=== PATIENT | female | born 1955 | race Two or more races ===

== ENCOUNTER 2016-07-12 05:21 | Inpatient (IN) | payer BC ==
--- NOTE | 2016-07-11 19:22 | Pre-Procedure Note/Attestation ---
Pre-Procedure Note/Attestation Complete Prior to Procedure Planned Procedure: left Procedure Narrative: Left total knee arthroplasty Indications for Procedure Pre-Operative Diagnosis: Left knee arthritis Attestation I attest that I discussed the nature of the procedure; its benefits; risks and complications; and alternatives (and the risks and benefits of such alternatives ), prior to the procedure, with the patient (or the patient's legal direct sales representative). I attest that, if there was a reasonable possibility of needing a blood transfusion, the patient (or the patient's legal direct sales representative) was given the [facility] standardized written summary, pursuant to the Otto Porfirio Blood Safety Act ([place] Health and Safety Code # 1645, as amended). I attest that I re-evaluated the patient just prior to the surgery and that there has been no change in the patient's H&P, except as documented below: NONE VERONIQUE ALCARAZ Jul 11, 2016 19:22
[2016-07-12] VITALS (14 sets, daily range): BP systolic 98–138; BP diastolic 54–80
[~2016-07-12] VITALS: Ht 165.1 cm; Wt 88.5 kg
[~2016-07-12 05:21] MED LIST: AMLODIPINE BESY10 MG ORAL; BENAZEPRIL HCL10 MG ORAL; GLIPIZIDE10 MG PO; METFORMIN HCL500 M1 ORAL; NORCO 10-325 T1 EACH ORAL
[2016-07-12] MEDS ORDERED: oxyCONTIN 20mg tab ORAL ONE (06:00)
[2016-07-12] MEDS ORDERED: celeBREX 200mg Cap **SURGERY PATIENTS ONLY ORAL ONE (06:00)
[2016-07-12] MEDS ORDERED: ceFAZolin 1gm/50ml Premix 50 ML IV ONE (06:00)
[2016-07-12] MEDS ORDERED: Bacitracin 50000 Units Vial ONE (06:44)
[2016-07-12] MEDS ORDERED: Ropivacaine 5mg/ml Vial 20ml INJ ONE (07:00)
[2016-07-12] MEDS ORDERED: Midazolam 2mg/2ml Inj ONE (07:00)
[2016-07-12] MEDS ORDERED: Bupivacaine 0.5% Inj 30 ml vial INJ ONE (07:00)
[2016-07-12] MEDS ORDERED: LR 1000ml ONE (07:00)
[2016-07-12] MEDS ORDERED: Morphine Sulfate PF 10 ML ONE (07:00)
[2016-07-12] MEDS ORDERED: Propofol 10mg/ml 20ml IV ONE (07:00)
[2016-07-12] MEDS ORDERED: NS Irrig 2000ml IRRIG ONE (07:00)
[2016-07-12] MEDS ORDERED: Alfentanil 2ml Inj ONE (07:00)
[2016-07-12] MEDS ORDERED: Ropivacaine 2mg/ml Amp INJ ONE (07:00)
[2016-07-12] MEDS ORDERED: Sterile Water For Irrig 2000ml IRRIG ONE (07:00)
[2016-07-12] MEDS ORDERED: Milk of Magnesia 30ml Ud ORAL PRN (07:15)
[2016-07-12] MEDS ORDERED: NS Irrig 1000ml IRRIG ONE (07:56)
--- NOTE | 2016-07-12 08:17 | Anethesia Preoperative Eval ---
Anesthesia Pre-op PMH/ROS General Date of Evaluation: Jul 12, 2016 Time of Evaluation: 06:50 Anesthesiologist: Rory ASA Score: ASA 3 Mallampati Score Class I : Soft palate, uvula, fauces, pillars visible Class II: Soft palate, uvula, fauces visible Class III: Soft palate, base of uvula visible Class IV: Only hard plate visible Mallampati Classification: Class II Surgeon: Kaia Diagnosis: OA left knee Surgical Procedure: Left TKR Family History: no anesthesia problems Allergies: Coded Allergies: No Known Allergies (Unverified , 05/11/16) Medications: see eMAR Past Medical History Cardiovascular: Reports: HTN Pulmonary: Denies: COPD, SULEMAN, asthma, other Gastrointestinal/Genitourinary: Denies: CRI, ESRD, GERD, other Neurologic/Psychiatric: Denies: CVA, TIA, dementia, depression/anxiety, other Endocrine: Reports: DM HEENT: Denies: DOUGLAS (L), DOUGLAS (R), cataract (L), cataract (R), glaucoma, other Hematology/Immune: Denies: DVT, anemia, bleeding disorder, other Musculoskeletal/Integumentary: Reports: OA PMH Narrative: DM, HTN PSxH Narrative: Right TKR Anesthesia Pre-op Phys. Exam Physician Exam Last Vital Signs Date Time Temp Pulse Resp B/P Pulse Ox O2 Delivery O2 Flow Rate FiO2 07/12/16 05:57 97.2 91 18 117/77 99 Room Air Constitutional: NAD Neurologic: CN 2-12 intact Cardiovascular: RRR, no M/R/G Respiratory: CTA Gastrointestinal: S/NT/ND Airway Exam Mallampati Score: Class II MO: full ROM: full Teeth: intact Anesthesia Pre-op A/P Labs WNL Accucheck 166 Studies Pre-op Studies: EKG - SR Risk Assessment & Plan Assessment: OA left knee Plan: GA, LMA, femoral nerve block for post op pain Status Change Before Surgery: No Pre-Antibiotics Drug: Ancef 2 GM Given Within 1 Hr of Incision: Yes Time Given: 07:15 MINNIE JOHN M.D. Jul 12, 2016 08:17
[2016-07-12] MEDS ORDERED: LR 1000ml 1,000 ML IVLG SCH (08:18)
--- NOTE | 2016-07-12 08:18 | Immediate Post-Op Evaluation ---
Immediate Post-Op Evalulation Immediate Post-Op Evalulation Procedure: Left TKR Date of Evaluation: Jul 12, 2016 Time of Evaluation: 10:13 IV Fluids: 1300 Urinary Output: 150 Blood Pressure Systolic: 103 Blood Pressure Diastolic: 63 Pulse Rate: 96 Respiratory Rate: 10 O2 Sat by Pulse Oximetry: 100 Temperature (Fahrenheit): 97.0 Pain Score (1-10): 0 Nausea: No Vomiting: No Complications No complication Patient Status: awake, patent, none Hydration Status: adequate Drug: Ancef 2 GM Given Within 1 Hr of Incision: Yes Time Given: 07:15 MINNIE JOHN M.D. Jul 12, 2016 08:18
[2016-07-12] MEDS ORDERED: Labetalol 5mg/ml 20ml vial IV PRN (08:30)
[2016-07-12] MEDS ORDERED: LR 1000ml 1,000 ML IV SCH (08:30)
[2016-07-12] MEDS ORDERED: LORazepam Inj 2mg/ml 1ml IV PRN (08:30)
[2016-07-12] MEDS ORDERED: Hydromorphone 0.5mg/0.5ml inj IVP PRN (08:30)
[2016-07-12] MEDS: Docusate 100mg cap ORAL SCH ×4 (09:00→18:00)
[2016-07-12] MEDS: Enoxaparin 30mg Inj SUBQ SCH ×2 (09:00→21:51)
[2016-07-12] MEDS ORDERED: D5 1/2NS w/KCl 20mEq 1,000 ML IV SCH (09:00)
[2016-07-12] MEDS: celeBREX 200mg Cap **SURGERY PATIENTS ONLY ORAL SCH ×2 (09:00→13:24)
--- NOTE | 2016-07-12 09:53 | Brief Operative Note ---
Immediate Post Operative Note Operative Note Chief Complaint: left knee pain Pre-op Diagnosis: left knee arthritis Procedure: left tka Post-op Diagnosis: same as pre-op Findings: consistent w/pre-op dx studies Surgeon: md jory Template Checker: sonny irvin Anesthesiologist: md jeni Anesthesia: general Specimen: yes Complications: none Condition: stable Estimated Blood Loss: minimal Drains: none Implant(s) used?: Yes - WAYLON Syed Jul 12, 2016 09:53
--- NOTE | 2016-07-12 12:03 | Diagnostic Imaging Report ---
Indication: Status post total knee arthroplasty Technique: 3 views of the left knee Comparison: None Findings:Patient is status post total knee arthroplasty. Good anatomic alignment of the prosthesis. Retained air within the surgical wound is demonstrated. Impression:Status post total knee arthroplasty. No unusual features
[2016-07-12] MEDS: D5 1/2NS w/KCl 20mEq 1,000 ML IV SCH (12:41)
[2016-07-12] MEDS: oxyCONTIN 20mg tab ORAL SCH ×2 (13:26→21:00)
[2016-07-12] MEDS: NovoLOG Insulin Flexpen SUBQ SCH ×2 (16:17→20:50)
[2016-07-12] MEDS ORDERED: NovoLOG Insulin Flexpen SUBQ SCH (16:30)
[2016-07-12] MEDS: metFORMIN 500mg tab ORAL SCH (17:19)
--- NOTE | 2016-07-12 21:27 | Operative Note - Dictated ---
DATE OF OPERATION: 07/12/2016 PREOPERATIVE DIAGNOSIS: Left knee end-stage arthritis. POSTOPERATIVE DIAGNOSIS: Left knee end-stage arthritis. PROCEDURE: Left total knee arthroplasty using Radha Persona system, size 8 femur, size F tibial component, 10 mm poly insert, and a 32 mm patellar insert all polyethylene and all cemented. SURGEON: Yan Marti M.D. NEWSPAPER LIBRARY MANAGER: Darline Dominguez PA-C. ANESTHESIOLOGIST: Otto Valadez M.D. ANESTHESIA: Spinal anesthesia combined with femoral nerve block for postoperative pain management. ESTIMATED BLOOD LOSS: Less than 120 mL. COMPLICATIONS: None. BRIEF HISTORY: The patient is a pleasant 61-year-old female, who has had ongoing bilateral knee arthritis. She underwent right total knee arthroplasty in May and she did very well with it. She had full range of motion and was very happy with results. After full discussion of risks and benefits of the surgery and after she failed nonoperative treatment, she opted for left total knee arthroplasty. OPERATIVE PROCEDURE: The patient was brought to the operating table and was placed supine. All pressure points were well padded. Spinal anesthesia was induced and a femoral block was performed. The left knee was prepped and draped in the usual sterile fashion, the left leg was exsanguinated, and tourniquet was inflated to 275 mmHg. Standard anterior incision was made over the anterior aspect of the femur, the tibia, and the knee. The incision was taken down and medial parapatellar arthrotomy was performed. The patella was everted. The medial releases and the deep fiber MCL were released for ligamentous balancing. At this point, the patella was everted, the knee was flexed, and the ACL and PCL were resected. The intramedullary access into the femur was obtained using a drill and an intramedullary guide was placed into the femur. A standard 5-degree valgus distal femoral cut was performed without any complications. At this point, measurements were made and size 8 mm femur appeared to be the right size. Therefore, an 8-mm cutting block was performed and the anterior, posterior, and chamfer cuts were performed without any complications. A size 8 mm femur was then applied and there was excellent medial and lateral as well as anterior and posterior sizing. The femur was slightly lateralized and the peg holes were drilled without any complications. It should be noted that femoral cut was performed at about 3 degrees of external rotation to accommodate for patellofemoral tracking. Once this was performed, care was given to the tibia. Anterior tibial spine was used as the center point and the anterior tibial crest was used as alignment. An extramedullary guide was applied and 2 mm was taken off the most involved side, which was the medial side. The anatomical axis was recreated and slope was recreated. At this point, the medial, lateral, and posterior ligaments were protected and the tibial cut was performed without any complication. Flexion-extension gap was checked and appeared to be perfect. At this point, care was given to the patella. The patella was everted, it was measured using calipers and it was 24 mm. At this point, a freehand patellar cut was performed and the remaining patella was 14 mm. A 32 mm patellar trial was then applied. The peg holes were drilled and the trial was applied and there was excellent fit. At this point, the femoral cut, tibial cut, and the patellar cuts were all locked in without any complications and 10 mm poly trial insert was applied. The knee was placed through range of motion. There was full extension, full flexion, and excellent stability to varus and valgus stressing at 0, 30 degrees, 45 degrees, and 90 degrees. The patellofemoral tracking was excellent. At this point, all trial components were removed. The knee was thoroughly irrigated using Simpulse irrigation. The intramedullary hole into the femur was then plugged using bones. At this point, the tibial component, femoral component, and patellar components were all cemented without any complications and excess cement was removed. The knee was thoroughly irrigated again and a size 10 mm polyethylene insert was then locked in without any complication. Again, the range of motion and stability of the knee was checked at 0, 30 degrees, 45 degrees, and 90 degrees and there was excellent stability and range of motion as described. Patellofemoral tracking was excellent. At this point, the knee was thoroughly irrigated again. The tourniquet was deflated. All capillary bleeders were stopped. There was no excessive bleeding. The extensor mechanism was closed using #1 Vicryl suture, subcutaneous tissue was closed using 2-0 Vicryl suture, and skin was closed using 3-0 Monocryl suture. The patient tolerated the procedure well without any complications and was placed in a knee immobilizer, and was taken to recovery room in stable condition. All lap counts and instrument counts were correct. Preoperative antibiotic was given prior to surgery. Yan Marti M.D. DR: Gloria JOB#: [id number] CC:
[2016-07-13] MEDS: D5 1/2NS w/KCl 20mEq 1,000 ML IV SCH ×3 (02:31→20:30)
[2016-07-13 04:00] VITALS: BP 119/67
[2016-07-13] MEDS: NovoLOG Insulin Flexpen SUBQ SCH ×4 (05:58→20:34)
[2016-07-13] MEDS: GlipiZIDE 10mg tab ORAL SCH (06:01)
[2016-07-13 07:53] LABS: MEAN CORPUSCULAR HEMOGLOBIN 23.6 PG (27.0-31.0); MEAN CORPUSCULAR HGB CONC 30.8 G/DL (32.0-36.0); MEAN CORPUSCULAR VOLUME 77 FL (80-99); MEAN PLATELET VOLUME 7.8 FL (6.5-10.1); PLATELET COUNT 275 K/UL (150-450); RED BLOOD COUNT 3.88 M/UL (4.20-5.40); RED CELL DISTRIBUTION WIDTH 16.2 % (11.6-14.8)
[2016-07-13 08:00] VITALS: BP 137/82
[2016-07-13 08:03] LABS: WHITE BLOOD COUNT 22.5 K/UL (4.8-10.8)
--- NOTE | 2016-07-13 08:04 | Orthopedic Progress Note ---
Orthopedic - Progress Note Subjective Symptoms: c/o post-op knee pain, improved, other - awake and eating Objective Vital Signs Laboratory Tests Test 07/13/16 07:20 White Blood Count Pending Red Blood Count Pending Hemoglobin Pending Hematocrit Pending Mean Corpuscular Volume Pending Mean Corpuscular Hemoglobin Pending Mean Corpuscular Hemoglobin Concent Pending Red Cell Distribution Width Pending Platelet Count Pending Mean Platelet Volume Pending Neutrophils (%) (Auto) Pending Lymphocytes (%) (Auto) Pending Monocytes (%) (Auto) Pending Eosinophils (%) (Auto) Pending Basophils (%) (Auto) Pending Last 24 Hour Vital Signs Date Time Temp Pulse Resp B/P Pulse Ox O2 Delivery O2 Flow Rate FiO2 07/13/16 04:00 98.2 113 19 119/67 97 Nasal Cannula 2.0 07/12/16 23:44 99.3 123 20 138/80 94 Nasal Cannula 2.0 07/12/16 20:00 100.0 122 20 116/66 95 Room Air 07/12/16 16:30 98.1 102 18 121/73 97 Nasal Cannula 2.0 07/12/16 15:22 98.1 07/12/16 14:30 103 20 113/54 97 Nasal Cannula 2.0 07/12/16 12:30 98.0 98 20 116/68 98 Nasal Cannula 2.0 07/12/16 11:30 98.1 91 20 98/58 97 Nasal Cannula 2.0 07/12/16 11:00 98.6 82 20 109/67 100 Nasal Cannula 2.0 07/12/16 10:45 82 20 103/66 100 Nasal Cannula 2.0 07/12/16 10:30 93 20 109/61 100 Nasal Cannula 2.0 07/12/16 10:17 97 20 100/65 100 Simple Mask 8.0 07/12/16 10:11 95 20 104/63 100 Simple Mask 8.0 07/12/16 10:08 98 20 99/63 100 Simple Mask 8.0 07/12/16 10:06 96 10 100 07/12/16 10:03 98.7 97 20 103/63 100 Simple Mask 8.0 I&O Intake and Output 07/12/16 07/13/16 19:00 07:00 Intake Total 2040 ml 915 ml Output Total 250 ml 200 ml Balance 1790 ml 715 ml Intake Oral 240 ml 240 ml IV Total 1800 ml 675 ml Output Urine Total 250 ml 200 ml Wound: clean, dry, intact Drains: none Neuro Status: other - able to wiggle toes, limited dorsiflexion - possibly due to spinal/blocks. Intact sensation Vascular Status: normal Additional Comments Xray reviewed Assessment Post-op Diagnosis POD 1 Procedure Performed left tka Plan Plan: PT, pain management, discharge plan - plan for dc to rehab on monday, other - follow up labs - currently pending. WAYLON CROCKER Jul 13, 2016 08:04
[2016-07-13] MEDS: metFORMIN 500mg tab ORAL SCH ×2 (08:37→17:44)
[2016-07-13] MEDS: Docusate 100mg cap ORAL SCH ×3 (08:38→17:44)
[2016-07-13] MEDS: celeBREX 200mg Cap **SURGERY PATIENTS ONLY ORAL SCH (08:39)
[2016-07-13] MEDS: oxyCONTIN 20mg tab ORAL SCH ×2 (08:39→20:29)
[2016-07-13] MEDS: Enoxaparin 30mg Inj SUBQ SCH ×2 (08:45→20:32)
[2016-07-13 09:05] LABS: BAND NEUTROPHILS % (MANUAL) 2 % (0-8); LYMPHOCYTES % (MANUAL) 16 % (20-45); NEUTROPHILS % (MANUAL) 73 % (45-75); TOTAL CELLS COUNTED 100
[2016-07-13 09:06] LABS: ANISOCYTOSIS 1+; BASOPHILS % (MANUAL) 0 % (0-2); EOSINOPHILS % (MANUAL) 0 % (0-3); PLATELET ESTIMATE ADEQUATE; PLATELET MORPHOLOGY NORMAL
[2016-07-13 09:07] LABS: HYPOCHROMASIA 2+
[2016-07-13 11:57] VITALS: BP 139/86
--- NOTE | 2016-07-13 13:34 | 48 Hour Post Anesthesia Eval ---
Post Anesthesia Evaluation Procedure: Left TKR Date of Evaluation: Jul 13, 2016 Time of Evaluation: 13:33 Blood Pressure Systolic: 139 0: 86 Pulse Rate: 102 Respiratory Rate: 20 Temperature (Fahrenheit): 97.9 O2 Sat by Pulse Oximetry: 99 Airway: patent Nausea: No Vomiting: No Pain Intensity: 4 Hydration Status: adequate Cardiopulmonary Status: Stable Mental Status/LOC: patient returned to baseline Follow-up Care/Observations: 0 Post-Anesthesia Complications: 0 Follow-up care needed: N/A Mina Falk MD Jul 13, 2016 13:34
[2016-07-13 16:00] VITALS: BP 158/89
[2016-07-13] MEDS ORDERED: Tubing IV Secondary IV ONE (17:44)
--- NOTE | 2016-07-13 18:57 | General Progress Note ---
Assessment/Plan Status Narrative s/p tkr post op leukocytosis diabetes post op anemia hypertenison Assessment/Plan PHYSICAL THERPAY OCCUPATIONAL THERPAY CPM PAINC ONTROL DVT PROPHYALXIS HAS AHD PERIOPERATIVE ANTIBIOTIC PROPHYALXIS ACCU CHECK SLIDING SCALE ON METFORMINA DN GLIPIZIDE HAS A LOT OF PAIN WILL GET VENOUS DUIPLEX Subjective Date patient seen: Jul 13, 2016 Time patient seen: 18:54 Constitutional: Reports: no symptoms HEENT: Reports: no symptoms Cardiovascular: Reports: no symptoms Respiratory: Reports: no symptoms Genitourinary: Reports: no symptoms Allergies: Coded Allergies: No Known Allergies (Unverified , 05/11/16) Subjective has been having a lot of pain thinks it is more than last time Objective Last 24 Hour Vital Signs Date Time Temp Pulse Resp B/P Pulse Ox O2 Delivery O2 Flow Rate FiO2 07/13/16 16:00 97.9 114 20 158/89 98 Room Air 07/13/16 13:34 102 20 99 07/13/16 12:10 97.9 07/13/16 11:57 97.9 102 20 139/86 99 Room Air 07/13/16 08:38 137/82 07/13/16 08:37 103 137/82 07/13/16 08:00 97.7 103 20 137/82 98 Room Air 07/13/16 04:00 98.2 113 19 119/67 97 Nasal Cannula 2.0 07/12/16 23:44 99.3 123 20 138/80 94 Nasal Cannula 2.0 07/12/16 20:00 100.0 122 20 116/66 95 Room Air Intake and Output 07/12/16 07/13/16 19:00 07:00 Intake Total 2040 ml 915 ml Output Total 250 ml 200 ml Balance 1790 ml 715 ml Intake Oral 240 ml 240 ml IV Total 1800 ml 675 ml Output Urine Total 250 ml 200 ml Laboratory Tests 07/13/16 07:20: White Blood Count 22.5*H, Red Blood Count 3.88L, Hemoglobin 9.2L, Hematocrit 29.7L, Mean Corpuscular Volume 77L, Mean Corpuscular Hemoglobin 23.6L, Mean Corpuscular Hemoglobin Concent 30.8L, Red Cell Distribution Width 16.2H, Platelet Count 275, Mean Platelet Volume 7.8, Neutrophils (%) (Auto) , Lymphocytes (%) (Auto) , Monocytes (%) (Auto) , Eosinophils (%) (Auto) , Basophils (%) (Auto) , Differential Total Cells Counted 100, Neutrophils % ( Manual) 73, Lymphocytes % (Manual) 16L, Monocytes % (Manual) 9, Eosinophils % ( Manual) 0, Basophils % (Manual) 0, Band Neutrophils 2, Platelet Estimate Adequate, Platelet Morphology Normal, Hypochromasia 2+, Anisocytosis 1+ Height (Feet): 5 Height (Inches): 5.00 Weight (Pounds): 195 General Appearance: WD/WN Neck: non-tender Cardiovascular: normal rate, regular rhythm, regularly irregular, no JVD Respiratory/Chest: lungs clear Abdomen: soft Edema: other - no clubbing VITALY ALMANZA Jul 13, 2016 18:57
[2016-07-13 20:00] VITALS: BP 153/95
[2016-07-14 00:28] VITALS: BP 168/86
[2016-07-14 04:00] VITALS: BP 147/79
[2016-07-14] MEDS: NovoLOG Insulin Flexpen SUBQ SCH ×5 (06:30→20:49)
[2016-07-14] MEDS: GlipiZIDE 10mg tab ORAL SCH (06:39)
[2016-07-14] MEDS: D5 1/2NS w/KCl 20mEq 1,000 ML IV SCH (06:39)
[2016-07-14 07:09] LABS: MEAN CORPUSCULAR HEMOGLOBIN 24.2 PG (27.0-31.0); MEAN CORPUSCULAR HGB CONC 31.8 G/DL (32.0-36.0); MEAN CORPUSCULAR VOLUME 76 FL (80-99); MEAN PLATELET VOLUME 7.8 FL (6.5-10.1); PLATELET COUNT 274 K/UL (150-450)
[2016-07-14 07:16] LABS: WHITE BLOOD COUNT 22.9 K/UL (4.8-10.8)
--- NOTE | 2016-07-14 07:44 | Orthopedic Progress Note ---
Orthopedic - Progress Note Subjective Symptoms: c/o post-op knee pain Additional Comments Doing ok, better pain control. Starting to ambulate with PT Objective Vital Signs Last 24 Hour Vital Signs Date Time Temp Pulse Resp B/P Pulse Ox O2 Delivery O2 Flow Rate FiO2 07/14/16 00:28 97.5 120 20 168/86 100 Room Air 07/13/16 20:00 97.3 121 20 153/95 98 Room Air 07/13/16 16:00 97.9 114 20 158/89 98 Room Air 07/13/16 13:34 102 20 99 07/13/16 12:10 97.9 07/13/16 11:57 97.9 102 20 139/86 99 Room Air 07/13/16 08:38 137/82 07/13/16 08:37 103 137/82 07/13/16 08:00 97.7 103 20 137/82 98 Room Air I&O Intake and Output 07/13/16 07/14/16 19:00 07:00 Intake Total 2345 ml 1800 ml Output Total 1350 ml 1000 ml Balance 995 ml 800 ml Intake Oral 1720 ml 1300 ml IV Total 625 ml 500 ml Output Urine Total 1350 ml 1000 ml Wound: clean, dry Drains: none Neuro Status: normal Vascular Status: normal Assessment Post-op Diagnosis Left TKA Plan Plan: PT, pain management, discharge plan Additional Comments Dopplers negative for DVT No fever, but Leucocytosis most likely from trauma of surgery, will monitor. Expect to come down by tomorrow. Possible D/C to rehab tomorrow if WBC comes down. Continue ambulation with PT Follow Hgb at 9.0 VERONIQUE ALCARAZ Jul 14, 2016 07:44
[2016-07-14 08:10] VITALS: BP 108/85
[2016-07-14] MEDS: metFORMIN 500mg tab ORAL SCH ×2 (08:38→17:33)
[2016-07-14] MEDS: Docusate 100mg cap ORAL SCH ×3 (08:38→17:33)
[2016-07-14] MEDS: Enoxaparin 30mg Inj SUBQ SCH ×2 (08:40→20:49)
[2016-07-14] MEDS: celeBREX 200mg Cap **SURGERY PATIENTS ONLY ORAL SCH (08:51)
[2016-07-14] MEDS: oxyCONTIN 20mg tab ORAL SCH ×2 (08:52→20:50)
[2016-07-14 10:08] LABS: BAND NEUTROPHILS % (MANUAL) 0 % (0-8); BASOPHILS % (MANUAL) 0 % (0-2); EOSINOPHILS % (MANUAL) 2 % (0-3); LYMPHOCYTES % (MANUAL) 10 % (20-45); NEUTROPHILS % (MANUAL) 78 % (45-75); PLATELET ESTIMATE ADEQUATE; PLATELET MORPHOLOGY NORMAL; TOTAL CELLS COUNTED 100
[2016-07-14 10:09] LABS: ANISOCYTOSIS 1+; HYPOCHROMASIA 1+
[2016-07-14 14:30] VITALS: BP 147/84
[2016-07-14 16:00] VITALS: BP 151/122
--- NOTE | 2016-07-14 17:10 | General Progress Note ---
Assessment/Plan Assessment/Plan PHYSICAL THERPAY OCCUPATIONAL THERPAY CPM PAINC ONTROL DVT PROPHYALXIS HAS AHD PERIOPERATIVE ANTIBIOTIC PROPHYALXIS ACCU CHECK SLIDING SCALE ON METFORMINA DN GLIPIZIDE HAS A LOT OF PAIN WILL GET VENOUS DUIPLEX Subjective Date patient seen: Jul 14, 2016 Time patient seen: 17:08 Constitutional: Reports: no symptoms HEENT: Reports: no symptoms Cardiovascular: Reports: no symptoms Respiratory: Reports: no symptoms Gastrointestinal/Abdominal: Reports: no symptoms Allergies: Coded Allergies: No Known Allergies (Unverified , 05/11/16) Subjective s/p tkr perioperative antibiotic prophyalxis given post op dvt prophyalxis painc control pt ot cpm dc to [facility] will follow discussed with patient at length Objective Last 24 Hour Vital Signs Date Time Temp Pulse Resp B/P Pulse Ox O2 Delivery O2 Flow Rate FiO2 07/14/16 16:00 115 19 151/122 96 Room Air 07/14/16 14:30 98.1 120 18 147/84 99 Room Air 07/14/16 08:52 110 108/85 07/14/16 08:51 108/85 07/14/16 08:10 97.7 110 18 108/85 97 Room Air 07/14/16 04:00 97.5 110 20 147/79 96 Room Air 07/14/16 00:28 97.5 120 20 168/86 100 Room Air 07/13/16 20:00 97.3 121 20 153/95 98 Room Air Intake and Output 07/13/16 07/14/16 19:00 07:00 Intake Total 2345 ml 1800 ml Output Total 1350 ml 1000 ml Balance 995 ml 800 ml Intake Oral 1720 ml 1300 ml IV Total 625 ml 500 ml Output Urine Total 1350 ml 1000 ml Laboratory Tests 07/14/16 05:25: White Blood Count 22.9*H, Red Blood Count 3.70L, Hemoglobin 9.0L, Hematocrit 28.2L, Mean Corpuscular Volume 76L, Mean Corpuscular Hemoglobin 24.2L, Mean Corpuscular Hemoglobin Concent 31.8L, Red Cell Distribution Width 16.0H, Platelet Count 274, Mean Platelet Volume 7.8, Neutrophils (%) (Auto) , Lymphocytes (%) (Auto) , Monocytes (%) (Auto) , Eosinophils (%) (Auto) , Basophils (%) (Auto) , Differential Total Cells Counted 100, Neutrophils % ( Manual) 78H, Lymphocytes % (Manual) 10L, Monocytes % (Manual) 10, Eosinophils % (Manual) 2, Basophils % (Manual) 0, Band Neutrophils 0, Platelet Estimate Adequate, Platelet Morphology Normal, Hypochromasia 1+, Anisocytosis 1+ Height (Feet): 5 Height (Inches): 5.00 Weight (Pounds): 195 VITALY ALMANZA Jul 14, 2016 17:10
[2016-07-14 20:00] VITALS: BP 162/91
[2016-07-15] VITALS (7 sets, daily range): BP systolic 120–176; BP diastolic 72–96
[2016-07-15] MEDS: GlipiZIDE 10mg tab ORAL SCH (05:51)
[2016-07-15] MEDS: NovoLOG Insulin Flexpen SUBQ SCH ×4 (05:53→21:07)
[2016-07-15 08:09] LABS: BASOPHILS % (AUTO) 0.3 % (0.0-2.0); LYMPHOCYTES % (AUTO) 11.6 % (20.0-45.0); MEAN CORPUSCULAR HEMOGLOBIN 24.1 PG (27.0-31.0); MEAN CORPUSCULAR HGB CONC 32.1 G/DL (32.0-36.0); MEAN CORPUSCULAR VOLUME 75 FL (80-99); MEAN PLATELET VOLUME 7.6 FL (6.5-10.1); MONOCYTES % (AUTO) 6.7 % (1.0-10.0); NEUTROPHILS % (AUTO) 80.4 % (45.0-75.0); PLATELET COUNT 313 K/UL (150-450); RED BLOOD COUNT 3.76 M/UL (4.20-5.40); RED CELL DISTRIBUTION WIDTH 15.9 % (11.6-14.8); WHITE BLOOD COUNT 16.9 K/UL (4.8-10.8)
[2016-07-15] MEDS: Enoxaparin 30mg Inj SUBQ SCH ×2 (09:00→20:02)
[2016-07-15] MEDS: celeBREX 200mg Cap **SURGERY PATIENTS ONLY ORAL SCH ×2 (09:00→09:55)
[2016-07-15] MEDS: Docusate 100mg cap ORAL SCH ×3 (09:00→17:53)
[2016-07-15] MEDS: metFORMIN 500mg tab ORAL SCH ×2 (09:51→17:53)
[2016-07-15] MEDS: oxyCONTIN 20mg tab ORAL SCH ×2 (09:52→21:05)
[2016-07-15] MEDS ORDERED: Norco 10mg/325mg tab ORAL PRN (16:30)
[2016-07-15] MEDS: Norco 7.5mg/325mg tab ORAL PRN (19:59)
[2016-07-16] VITALS: BP 103/67
[2016-07-16 04:00] VITALS: BP 127/70
[2016-07-16] MEDS: GlipiZIDE 10mg tab ORAL SCH (06:04)
[2016-07-16] MEDS: NovoLOG Insulin Flexpen SUBQ SCH ×4 (06:10→21:18)
[2016-07-16] MEDS: Norco 7.5mg/325mg tab ORAL PRN ×2 (07:48→12:31)
[2016-07-16 08:00] VITALS: BP 120/56
[2016-07-16] MEDS: metFORMIN 500mg tab ORAL SCH ×2 (08:31→17:55)
[2016-07-16] MEDS: Docusate 100mg cap ORAL SCH ×3 (08:31→17:55)
[2016-07-16] MEDS: oxyCONTIN 20mg tab ORAL SCH ×2 (08:33→21:16)
[2016-07-16] MEDS: Enoxaparin 30mg Inj SUBQ SCH ×2 (08:38→21:18)
[2016-07-16] MEDS: celeBREX 200mg Cap **SURGERY PATIENTS ONLY ORAL SCH (08:43)
[2016-07-16] MEDS: Benazepril 10mg tab ORAL SCH (09:00)
[2016-07-16 12:00] VITALS: BP 99/75
[2016-07-16 16:00] VITALS: BP 132/57
[2016-07-16] MEDS: Norco 5mg/325mg tab ORAL PRN ×2 (16:49→20:20)
[2016-07-16 20:00] VITALS: BP 118/72
[2016-07-17] VITALS (7 sets, daily range): BP systolic 112–143; BP diastolic 68–79
[2016-07-17] MEDS: Norco 5mg/325mg tab ORAL PRN (00:54)
[2016-07-17] MEDS: GlipiZIDE 10mg tab ORAL SCH (06:42)
[2016-07-17] MEDS: NovoLOG Insulin Flexpen SUBQ SCH ×4 (06:47→21:11)
[2016-07-17] MEDS: Docusate 100mg cap ORAL SCH ×3 (08:43→18:20)
[2016-07-17] MEDS: oxyCONTIN 20mg tab ORAL SCH ×2 (08:43→21:07)
[2016-07-17] MEDS: celeBREX 200mg Cap **SURGERY PATIENTS ONLY ORAL SCH (08:43)
[2016-07-17] MEDS: metFORMIN 500mg tab ORAL SCH ×2 (08:43→18:20)
[2016-07-17] MEDS: Benazepril 10mg tab ORAL SCH (08:44)
[2016-07-17] MEDS: Enoxaparin 30mg Inj SUBQ SCH ×2 (08:48→21:10)
[2016-07-17] MEDS: Norco 7.5mg/325mg tab ORAL PRN ×3 (10:36→23:34)
[2016-07-17] MEDS: HYDROmorphone 1mg/ml Carpuject SUBQ PRN (19:41)
[2016-07-18] VITALS: BP 137/73
[2016-07-18] MEDS: HYDROmorphone 1mg/ml Carpuject SUBQ PRN ×2 (05:45→19:05)
[2016-07-18 05:54] VITALS: BP 148/75
[2016-07-18] MEDS: GlipiZIDE 10mg tab ORAL SCH (06:12)
[2016-07-18] MEDS: NovoLOG Insulin Flexpen SUBQ SCH ×4 (06:14→20:13)
[2016-07-18 08:00] VITALS: BP 149/80
[2016-07-18] MEDS: metFORMIN 500mg tab ORAL SCH ×2 (08:26→17:14)
[2016-07-18] MEDS: Benazepril 10mg tab ORAL SCH (08:27)
[2016-07-18] MEDS: Docusate 100mg cap ORAL SCH ×3 (08:27→17:14)
[2016-07-18] MEDS: celeBREX 200mg Cap **SURGERY PATIENTS ONLY ORAL SCH (08:27)
[2016-07-18] MEDS: oxyCONTIN 20mg tab ORAL SCH ×2 (08:28→20:07)
[2016-07-18] MEDS: Enoxaparin 30mg Inj SUBQ SCH ×2 (08:34→20:12)
[2016-07-18] MEDS: Norco 5mg/325mg tab ORAL PRN ×2 (10:26→17:15)
[2016-07-18 12:00] VITALS: BP 150/77
[2016-07-18 16:03] VITALS: BP 141/75
[2016-07-18 20:23] VITALS: BP 131/95
[2016-07-19] VITALS: BP 131/81
[2016-07-19 04:00] VITALS: BP 136/77
[2016-07-19] MEDS: NovoLOG Insulin Flexpen SUBQ SCH ×4 (06:26→20:17)
[2016-07-19] MEDS: GlipiZIDE 10mg tab ORAL SCH (06:27)
[2016-07-19] MEDS: Norco 5mg/325mg tab ORAL PRN (06:41)
[2016-07-19 07:32] VITALS: BP 158/85
--- NOTE | 2016-07-19 07:48 | Orthopedic Progress Note ---
Orthopedic - Progress Note Subjective Additional Comments Physically doing well. Very upset with the hospital care. Pain meds not given on time. Breakfast missed. Patient was ready for Discharge on 07/15/2016 and discharge was not set up. No medical indication to stay at the hospital past 07/15/2016. Objective Vital Signs Last 24 Hour Vital Signs Date Time Temp Pulse Resp B/P Pulse Ox O2 Delivery O2 Flow Rate FiO2 07/19/16 07:32 97.9 92 20 158/85 98 Room Air 07/19/16 04:00 97.9 88 18 136/77 98 Room Air 07/19/16 00:00 98.2 89 18 131/81 98 Room Air 07/18/16 20:23 98.1 85 19 131/95 100 Room Air 07/18/16 16:03 97.9 82 18 141/75 99 Room Air 07/18/16 12:00 98.1 95 16 150/77 98 Room Air 07/18/16 08:27 149/80 07/18/16 08:26 90 149/80 07/18/16 08:00 98.1 90 16 149/80 100 Room Air I&O Intake and Output 07/18/16 07/19/16 19:00 07:00 Intake Total 940 ml Balance 940 ml Intake Oral 940 ml # Voids 4 Wound: clean, dry, intact Drains: none Neuro Status: normal Assessment Post-op Diagnosis Left TKA Plan Additional Comments Arrange for Discharge to rehab today follow up with me in 10 days VERONIQUE ALCARAZ Jul 19, 2016 07:48
[2016-07-19] MEDS: metFORMIN 500mg tab ORAL SCH ×2 (08:44→17:02)
[2016-07-19] MEDS: Docusate 100mg cap ORAL SCH ×3 (08:44→17:02)
[2016-07-19] MEDS: celeBREX 200mg Cap **SURGERY PATIENTS ONLY ORAL SCH (08:44)
[2016-07-19] MEDS: oxyCONTIN 20mg tab ORAL SCH ×2 (08:45→20:12)
[2016-07-19] MEDS: Benazepril 10mg tab ORAL SCH (08:46)
[2016-07-19] MEDS: Enoxaparin 30mg Inj SUBQ SCH ×2 (08:50→20:16)
[2016-07-19 11:46] VITALS: BP 135/73
--- NOTE | 2016-07-19 13:36 | Diagnostic Imaging Report ---
APPROVED REPORT CPT Code: 56744 Present Symptoms Lower Extremity Pain: Left RIGHT LEG: Venous imaging reveals a patent deep venous system. There is no evidence of thrombus within the femoral, popliteal or tibial segments. The greater saphenous vein is also within normal limits. Doppler indicates normal spontaneous flow within these segments. LEFT LEG: Venous imaging reveals a patent deep venous system. There is no evidence of thrombus within the femoral segments. The popliteal and tibial veins were not well visualized due to dressing. The greater saphenous vein is also within normal limits. Doppler indicates normal spontaneous flow within these segments.
[2016-07-19 16:00] VITALS: BP 145/78
[2016-07-19] MEDS ORDERED: Norco 7.5mg/325mg tab ORAL PRN (18:15)
[2016-07-19] MEDS: HYDROmorphone 1mg/ml Carpuject SUBQ PRN ×2 (18:57→23:45)
[2016-07-19 19:44] VITALS: BP 142/75
[2016-07-20] VITALS: BP 146/83
[2016-07-20 04:00] VITALS: BP 140/77
[2016-07-20] MEDS: GlipiZIDE 10mg tab ORAL SCH (05:51)
[2016-07-20] MEDS: NovoLOG Insulin Flexpen SUBQ SCH ×3 (05:51→16:16)
[2016-07-20] MEDS: Norco 10mg/325mg tab ORAL PRN ×4 (05:54→16:08)
[2016-07-20 08:00] VITALS: BP 144/77
--- NOTE | 2016-07-20 08:07 | Orthopedic Progress Note ---
Orthopedic - Progress Note Subjective Symptoms: other - no d/c yesterday. pt ready for d/c since 07/15 Objective Vital Signs Last 24 Hour Vital Signs Date Time Temp Pulse Resp B/P Pulse Ox O2 Delivery O2 Flow Rate FiO2 07/20/16 08:00 97.9 80 18 144/77 96 Room Air 07/20/16 04:00 97.6 84 19 140/77 99 Room Air 07/20/16 00:00 98.2 88 18 146/83 99 Room Air 07/19/16 19:44 98.1 85 20 142/75 98 Room Air 07/19/16 16:00 98.1 90 20 145/78 98 Room Air 07/19/16 11:46 97.7 81 20 135/73 100 Room Air 07/19/16 08:46 158/85 07/19/16 08:44 92 158/85 I&O Intake and Output 07/19/16 07/20/16 19:00 07:00 Intake Total 850 ml 1750 ml Balance 850 ml 1750 ml Intake Oral 850 ml 1750 ml # Voids 2 3 Wound: clean, dry, intact Drains: none Neuro Status: normal Vascular Status: normal Assessment Post-op Diagnosis POD 8 Procedure Performed left tka Plan Plan: other - discharge to SNF today WAYLON CROCKER Jul 20, 2016 08:07
--- NOTE | 2016-07-20 08:35 | Discharge Summary ---
Discharge Summary Hospital Course Date of Admission Jul 12, 2016 at 05:21 Date of Discharge 07/20/2016 Admitting Diagnosis oa knee s/p tkr diabetes opbesity HPI Katrin Moulton is a 61 year old female who was admitted on Jul 12, 2016 at 05: 21 for Unilateral Osteoarthritis Lt Knee Procedures tkr Hospital Course had tkr did well minimal blood loss blood sugar has beenounder control getting accu check and sliding scale to go to [facility] Discharge Discharge Disposition Patient was discharged to Discharge Diagnoses: VITALY ALMANZA Jul 20, 2016 08:35
[2016-07-20] MEDS: metFORMIN 500mg tab ORAL SCH ×2 (09:16→17:54)
[2016-07-20] MEDS: Benazepril 10mg tab ORAL SCH (09:16)
[2016-07-20] MEDS: oxyCONTIN 20mg tab ORAL SCH (09:17)
[2016-07-20] MEDS: Docusate 100mg cap ORAL SCH ×3 (09:17→17:55)
[2016-07-20] MEDS: celeBREX 200mg Cap **SURGERY PATIENTS ONLY ORAL SCH (09:17)
[2016-07-20] MEDS: Enoxaparin 30mg Inj SUBQ SCH (10:07)
[2016-07-20 11:08] VITALS: BP 148/84
[2016-07-20 16:00] VITALS: BP 144/78
[2016-07-20] MEDS ORDERED: Milk of Magnesia 30ml Ud ORAL PRN (20:30)
[2016-07-20] MEDS ORDERED: Norco 7.5mg/325mg tab ORAL PRN (20:30)
[2016-07-20] MEDS ORDERED: Norco 10mg/325mg tab ORAL PRN (20:30)
[2016-07-20] MEDS ORDERED: OXYCONTIN20 MG ORAL (20:46)
[2016-07-20] MEDS ORDERED: LOVENOX10 MG SUBQ (20:46)
[2016-07-20] MEDS ORDERED: CELEBREX200 MG ORAL (20:47)
[2016-07-20] MEDS ORDERED: COLACE100 MG ORAL (20:47)
[2016-07-20] MEDS ORDERED: NOVOLOG100 UNIT/3 SUBQ (20:47)
[2016-07-20] MEDS ORDERED: METFORMIN HCL500 M1 ORAL (20:48)
[2016-07-20] MEDS ORDERED: FERROUS SULFAT325 MG ORAL (20:48)
[2016-07-20] MEDS ORDERED: ZOFRAN4 M3 ORAL (20:49)
[2016-07-20] MEDS ORDERED: MILK OF MA400 MG/51 ORAL (20:50)
[2016-07-20] MEDS ORDERED: NORCO 10-325 T1 EACH ORAL (20:50)
[2016-07-20] MEDS ORDERED: NORCO 7.5-3251 EACH ORAL (20:50)
[2016-07-20] MEDS ORDERED: oxyCONTIN 20mg tab ORAL SCH (21:00)
[2016-07-20] MEDS ORDERED: Enoxaparin 30mg Inj SUBQ SCH (21:00)
[2016-07-21] MEDS ORDERED: NovoLOG Insulin Flexpen SUBQ SCH (06:30)
[2016-07-21] MEDS ORDERED: celeBREX 200mg Cap **SURGERY PATIENTS ONLY ORAL SCH (09:00)
[2016-07-21] MEDS ORDERED: Docusate 100mg cap ORAL SCH (09:00)
--- NOTE | 2016-07-29 09:42 | Discharge Summary ---
Discharge Summary Hospital Course Date of Admission Jul 12, 2016 at 05:21 Date of Discharge Jul 20, 2016 at 19:20 Admitting Diagnosis HPI Katrin Moulton is a 61 year old female who was admitted on Jul 12, 2016 at 05: 21 for Unilateral Osteoarthritis Lt Knee Hospital Course Addendum to DC summary: Patient underwent left knee total arthroplasty on 07/13/16. She was given pain management and physical and occupational therapy. Patient was planned discharge 07/15/16. There was an accepting SNF, however, could not get verification of patient insurance as it would the following day. Insurance was renewed but was not showing up on the system. Please refer to documentation by senior licensing manager with several contacts made with both insurance and SNF. Following day was a holiday and when normal business hours where back, patient was also referred to several other SNFs. Unable to discharge home with home health as it is not safe for. Finally on , PEGGY Mario got authorization and patient was discharged to SNF. Final Diagnosis: 1. Left knee total arthroplasty 2. Diabetes 3. Post-op anemia 4. Hypertension 5. Obesity I have assigned to complete a discharge summary on this account, I was not involved in the patient's management.--NESTOR Robles Discharge Discharge Disposition Patient was discharged to SNF/Subacute Facility(03) Discharge Diagnoses: Racheal John NP Jul 29, 2016 09:42
--- NOTE | 2016-09-09 10:07 | Physician Query ---
PLEASE COMPLETE DOCUMENT BEFORE SIGNING Dear Dr. ALCARAZ Date: 09/09/16 Scraper Tender/CDS Name: JOSE VALDEZ, ARASELI Exercise your independent professional judgment when responding to the query. Questions asked do not imply a particular answer is desired or expected. We greatly appreciate your clarification on this issue. CLINICAL DOCUMENTATION STATES: UNILATERAL OSTEOARTHRITIS LEFT KNEE, TKA DONE CLINICAL FINDINGS SHOW: PATH REPORT SHOWS ACUTE OSTEOMYELITIS LEFT KNEE WELL OSTEOARTHRITIS Please respond to the following question: PHYSICIAN RESPONSE: DO YOU CONFIRM THE PATHOLOGY FINDINGS ABOVE? ( ) YES (x ) NO Please also document in your Progress Notes and/or Discharge Summary and indicate if the condition was present on admission. Debbie ALMANZAR
== END 2016-07-20 19:20 | DRG 470 ==
LOC: SDSOVERFLO 05:21 → 3E 11:18
PROC: 0SRD0J9 Replacement of Left Knee Joint with Synthetic Substitute, Cemented, Open Approach (ICD-10-PCS; principal; 2016-07-12 07:00)
DX: M17.9 Osteoarthritis of knee, unspecified (principal); I10 Essential (primary) hypertension; E66.01 Morbid (severe) obesity due to excess calories; E11.9 Type 2 diabetes mellitus without complications; D64.9 Anemia, unspecified; D72.829 Elevated white blood cell count, unspecified; Z79.84 Long term (current) use of oral hypoglycemic drugs; Z68.32 Body mass index [BMI] 32.0-32.9, adult
CPT/HCPCS: 36415; 82962; 85007; 85025; 86850; 86900; 86901; 86920; 87081; 93970; 94003; 94150; J1815; J2250; J2405; J3490

== ENCOUNTER → 2016-09-27 | Outpatient (CLI) | payer BC ==
[~2016-09-27] MED LIST changes: +CELEBREX200 MG ORAL; +COLACE100 MG ORAL; +FERROUS SULFAT325 MG ORAL; +LOVENOX10 MG SUBQ; +MILK OF MA400 MG/51 ORAL; +NORCO 7.5-3251 EACH ORAL; +NOVOLOG100 UNIT/3 SUBQ; +OXYCONTIN20 MG ORAL; +ZOFRAN4 M3 ORAL
[2016-09-27 12:41] LABS: APPEARANCE,URINE CLEAR; KETONES,URINE NEGATIVE (NEGATIVE); LEUKOCYTE ESTERASE ,URINE 1+ (NEGATIVE); NITRITE,URINE NEGATIVE (NEGATIVE); PH,URINE 5 (4.5-8.0); PROTEIN,URINE 1+ (NEGATIVE); UROBILINOGEN,URINE NORMAL MG/DL (0.0-1.0)
[2016-09-27 13:09] LABS: BACTERIA,URINE FEW /HPF; RBC,URINE 0-2 /HPF (0 - 2); SQUAMOUS EPITHELIAL CELL,UR MODERATE /LPF (NONE/OCC)
[2016-09-27 13:16] LABS: ALANINE AMINOTRANSFERASE 18 U/L (3-33); ALBUMIN/GLOBULIN RATIO 1.2 (1.0-2.7); ANION GAP 19 (5-15); ASPARTATE AMINO TRANSFERASE 25 U/L (5-40); CARBON DIOXIDE 23 mEQ/L (20-30); CHLORIDE 97 mEQ/L (98-107); CREATININE 0.7 mg/dL (0.5-0.9); CRP QUANT < 0.3 mg/dL (< 0.5); GLOMERULAR FILTRATION RATE > 60 mL/min (>60); HEMOLYSIS 3; POTASSIUM 3.9 mEQ/L (3.4-4.9); SODIUM 139 mEQ/L (135-145); TOTAL PROTEIN 8.3 g/dL (6.6-8.7)
[2016-09-27 13:21] LABS: BASOPHILS % (AUTO) 0.6 % (0.0-2.0); EOSINOPHILS % (AUTO) 0.6 % (0.0-3.0); LYMPHOCYTES % (AUTO) 24.8 % (20.0-45.0); MEAN CORPUSCULAR HEMOGLOBIN 23.1 PG (27.0-31.0); MEAN CORPUSCULAR HGB CONC 30.6 G/DL (32.0-36.0); MEAN CORPUSCULAR VOLUME 76 FL (80-99); MONOCYTES % (AUTO) 6.6 % (1.0-10.0); NEUTROPHILS % (AUTO) 67.4 % (45.0-75.0); PLATELET COUNT 332 K/UL (150-450); RED BLOOD COUNT 5.18 M/UL (4.20-5.40); RED CELL DISTRIBUTION WIDTH 15.4 % (11.6-14.8); WHITE BLOOD COUNT 12.1 K/UL (4.8-10.8)
[2016-09-27 14:24] LABS: ERYTHROCYTE SEDIMENTATION RATE 13 MM/HR (0-30)
== END | disposition home or self-care (01) ==
LOC: LAB 12:05
DX: M86.9 Osteomyelitis, unspecified (principal)
CPT/HCPCS: 36415; 80053; 81003; 85025; 85651; 86140; 87040

== ENCOUNTER 2016-11-03 13:14 | Inpatient (IN) | payer BC, OTHER ==
[2016-11-03] VITALS (7 sets, daily range): BP systolic 101–184; BP diastolic 48–112
[~2016-11-03] VITALS: Ht 170.2 cm; Wt 77.1 kg
[2016-11-03] MEDS ORDERED: LORazepam Inj 2mg/ml 1ml IV ONE (14:30)
[2016-11-03 14:35] LABS: MEAN CORPUSCULAR HEMOGLOBIN 23.2 PG (27.0-31.0); MEAN CORPUSCULAR HGB CONC 30.7 G/DL (32.0-36.0); MEAN CORPUSCULAR VOLUME 76 FL (80-99); MEAN PLATELET VOLUME 7.2 FL (6.5-10.1); PLATELET COUNT 361 K/UL (150-450); RED BLOOD COUNT 5.59 M/UL (4.20-5.40); RED CELL DISTRIBUTION WIDTH 15.5 % (11.6-14.8); WHITE BLOOD COUNT 20.8 K/UL (4.8-10.8)
[2016-11-03 14:54] LABS: TROPONIN I < 0.30 ng/mL (<=0.30)
[2016-11-03 14:56] LABS: ALANINE AMINOTRANSFERASE 18 U/L (3-33); ALBUMIN/GLOBULIN RATIO 1.1 (1.0-2.7); ANION GAP 27 (5-15); ASPARTATE AMINO TRANSFERASE 18 U/L (5-40); CALCIUM 10.1 mg/dL (8.6-10.2); CARBON DIOXIDE 16 mEQ/L (20-30); CHLORIDE 93 mEQ/L (98-107); CREATININE 0.8 mg/dL (0.5-0.9); GLOMERULAR FILTRATION RATE > 60 mL/min (>60); HEMOLYSIS 2; LIPASE 32 U/L (< 60); POTASSIUM 3.2 mEQ/L (3.4-4.9); SODIUM 136 mEQ/L (135-145); TOTAL PROTEIN 8.1 g/dL (6.6-8.7)
--- NOTE | 2016-11-03 15:06 | Emergency Room Report ---
History of Present Illness General Chief Complaint: Chest Pain Source: Patient Present Illness HPI 61YOF BIBEMS for "pain from top of chest to bottom of stomach." Subjective fever/chills. Denies nausea/vomiting, diarrhea, SOB. Denies urinary complaints. States has had bilateral knee replacements, known "high white blood cell count" thought to be "osteo something." Not on ABx. Allergies: Coded Allergies: No Known Allergies (Unverified , 11/03/16) Patient History Past Medical History: none Past Surgical History: none Pertinent Family History: none Social History: Denies: alcohol use, drug use, smoking Now: No Immunizations: UTD Reviewed Nursing Documentation: PMH: Agreed, PSxH: Agreed Nursing Documentation-PMH Hx Hypertension: Yes Hx Diabetes: Yes Hx Cerebrovascular Accident: Yes - 2004 Review of Systems All Other Systems: negative except mentioned in HPI Physical Exam Vital Signs Date Time Temp Pulse Resp B/P Pulse Ox O2 Delivery O2 Flow Rate FiO2 11/03/16 13:49 93 18 158/112 98 Room Air Sp02 EP Interpretation: reviewed, normal General Appearance: normal inspection, well appearing, no apparent distress, alert, GCS 15, non-toxic, other - very dramatic, repeatedly moving sheets on, off body, c/o hot and cold Head: normocephalic, atraumatic Eyes: bilateral eye EOMI, bilateral eye PERRL ENT: normal ENT inspection, hearing grossly normal, normal voice Neck: normal inspection, full range of motion, supple, no bony tend Respiratory: normal inspection, lungs clear, normal breath sounds, no respiratory distress, no retraction, no wheezing Gastrointestinal: normal inspection, normal bowel sounds, non tender, soft, no guarding, no hernia Genitourinary: no CVA tenderness Musculoskeletal: normal inspection, back normal, normal range of motion, Warren' s Sign negative, other - bilateral midline knee vertical scars post-op. No appreciable warmth, redness, ttp Neurologic: normal inspection, alert, oriented x3, responsive, electronics processor III-XII nml as tested, motor strength/tone normal, speech normal Psychiatric: normal inspection, judgement/insight normal, mood/affect normal Skin: normal inspection, normal color, no rash Medical Decision Making Diagnostic Impression: Primary Impression: UTI (urinary tract infection) Qualified Codes: N30.01 - Acute cystitis with hematuria Additional Impression: Acute hypokalemia ER Course 61YO F with abd pain. VS notable for tachycardia. Leuks 21K. HypoKalemic UA grossly infected Empiric Abx given Blood, Urine Cx pending Leukocytosis - ?chronic. Known to Dr Sharp. Was evaluated previously by ID - no determined cause. - UTI here today. Blood Cx pending - NOT septic knee infection currently/clinically. - Empiric Abx given Vanc/zosyn Hypokalemia - Repleted in ED Endorsed to Dr Cintron For tele admit at 413pm EKG Diagnostic Results Rate: tachycardiac Rhythm: NSR ST Segments: no acute changes ASA given to the pt in ED: No Rhythm Strip Diag. Results EP Interpretation: yes Rate: 106 Rhythm: NSR, no PVC's Last Vital Signs Date Time Temp Pulse Resp B/P Pulse Ox O2 Delivery O2 Flow Rate FiO2 11/03/16 14:29 93 18 Room Air 11/03/16 14:29 158/112 98 Status: improved Disposition: ADMITTED INPATIENT Condition: Serious Referrals: NOT CHOSEN IPA/,REFERRING (PCP) CHRISTOPHE RAMIREZ M.D. Nov 03, 2016 15:06
[2016-11-03] MEDS ORDERED: Vancomycin 1.5gm/D5W 300ml 325 ML IVPB ONE (15:15)
[2016-11-03] MEDS ORDERED: Piperacillin/Tazobactam 3.375 GM in NS 110 ML IVPB ONE (15:15)
[2016-11-03] MEDS ORDERED: Zosyn 3.375gm inj ONE (15:22)
[2016-11-03 15:24] LABS: APPEARANCE,URINE CLOUDY; KETONES,URINE 3+ (NEGATIVE); LEUKOCYTE ESTERASE ,URINE 3+ (NEGATIVE); NITRITE,URINE POSITIVE (NEGATIVE); PH,URINE 7 (4.5-8.0); PROTEIN,URINE 3+ (NEGATIVE); UROBILINOGEN,URINE NORMAL MG/DL (0.0-1.0)
[2016-11-03 15:36] LABS: BACTERIA,URINE MANY /HPF; RBC,URINE 0-2 /HPF (0 - 2); SQUAMOUS EPITHELIAL CELL,UR MODERATE /LPF (NONE/OCC); WBC,URINE 20-30 /HPF (0 - 2)
[2016-11-03 16:24] LABS: REFLEX LACTIC ACID YES OR NO YES
[2016-11-03] MEDS ORDERED: fentaNYL 100 mcg/2 mL IV ONE (16:45)
[2016-11-03 17:24] LABS: BAND NEUTROPHILS % (MANUAL) 2 % (0-8); LYMPHOCYTES % (MANUAL) 12 % (20-45); NEUTROPHILS % (MANUAL) 83 % (45-75); TOTAL CELLS COUNTED 100
[2016-11-03 17:25] LABS: ANISOCYTOSIS 1+; BASOPHILS % (MANUAL) 0 % (0-2); EOSINOPHILS % (MANUAL) 0 % (0-3); HYPOCHROMASIA 1+; MICROCYTES 1+; PLATELET ESTIMATE ADEQUATE; PLATELET MORPHOLOGY NORMAL; POLYCHROMASIA 1+
[2016-11-03] MEDS ORDERED: Promethazine/Codeine 5ml UD ORAL PRN (17:45)
[2016-11-03] MEDS ORDERED: DuoNeb 0.5-3(2.5)mg/3ml neb HHN PRN (17:45)
[2016-11-03] MEDS ORDERED: Nitroglycerin Subl 0.4mg tab (Bottle Of 25) SL PRN (17:45)
[2016-11-03] MEDS ORDERED: Miralax 17gm pkt ORAL PRN (17:45)
[2016-11-03] MEDS ORDERED: Mylanta II UD 30ml ORAL PRN (17:45)
[2016-11-03] MEDS: oxyCONTIN 20mg tab ORAL SCH (21:00)
[2016-11-03] MEDS: Cefepime HCl 1 GM in D5W 55 ML IV SCH (21:15)
[2016-11-03] MEDS: Norco 10mg/325mg tab ORAL PRN (21:19)
[2016-11-03] MEDS: Heparin 5000 units/ml inj SUBQ SCH (21:20)
[2016-11-03] MEDS: NovoLOG Insulin Flexpen SUBQ SCH (21:30)
--- NOTE | 2016-11-03 22:28 | Consultation ---
History of Present Illness General Chief Complaint: Chest Pain Present Illness Allergies: Coded Allergies: No Known Allergies (Unverified , 05/11/16) Medication History Scheduled Amlodipine Besylate* (Amlodipine Besylate*), 10 MG ORAL DAILY, (Reported) Benazepril Hcl* (Benazepril Hcl*), 10 MG ORAL DAILY, (Reported) Celecoxib* (Celebrex*), 200 MG ORAL DAILY, (Reported) Docusate Sodium* (Colace*), 100 MG ORAL THREE TIMES A DAY, (Reported) Enoxaparin* (Lovenox*), 30 MG SUBQ EVERY 12 HOURS, (Reported) Ferrous Sulfate* (Ferrous Sulfate*), 325 MG ORAL THREE TIMES A DAY, (Reported) Glipizide (Glipizide), 10 MG PO DAILY, (Reported) Magnesium Hydroxide* (Milk Of Magnesia*), 30 ML ORAL DAILY, (Reported) Metformin Hcl* (Metformin Hcl*), 500 MG ORAL TWICE A DAY, (Reported) Metformin Hcl* (Metformin Hcl*), 500 MG ORAL TWICE A DAY, (Reported) Oxycodone Hcl Er* (Oxycontin*), 20 MG ORAL EVERY 12 HOURS, (Reported) Scheduled PRN Hydrocodone Bit/Acetaminophen 10-325* ([place] 10-325*), 1 TAB ORAL PRN PRN for For Pain, (Reported) Hydrocodone Bit/Acetaminophen 10-325* ([place] 10-325*), 1 TAB ORAL Q4H PRN for For Pain, (Reported) Hydrocodone Bit/Acetaminophen 7.5-325* ([place] 7.5-325*), 1 TAB ORAL Q4H PRN for For Pain, (Reported) Ondansetron* (Zofran*), 4 MG ORAL Q6H PRN for Nausea & Vomiting, (Reported) Miscellaneous Medications Insulin Aspart* (Novolog*), 0 SUBQ, (Reported) Patient History Healthcare decision maker katherine (daughter) Resuscitation status Full Code Advanced Directive on File Physical Exam Last 24 Hour Vital Signs Date Time Temp Pulse Resp B/P Pulse Ox O2 Delivery O2 Flow Rate FiO2 11/03/16 21:15 123 141/84 11/03/16 20:34 120 20 98 Room Air 11/03/16 20:33 120 20 98 Room Air 11/03/16 20:00 99.5 123 16 141/84 100 Room Air 11/03/16 18:31 97.9 120 20 158/90 98 Room Air 11/03/16 17:53 99.5 112 22 137/98 98 Room Air 11/03/16 17:49 112 22 137/98 98 Room Air 11/03/16 17:30 99.5 98 14 101/48 99 Room Air 11/03/16 16:30 107 21 177/103 99 Room Air 11/03/16 15:30 105 23 184/89 100 Room Air 11/03/16 14:29 93 18 Room Air 11/03/16 14:29 88 18 158/112 98 Room Air 11/03/16 13:49 93 18 158/112 98 Room Air Laboratory Tests Test 11/03/16 14:10 11/03/16 14:30 11/03/16 15:30 11/03/16 16:27 White Blood Count 20.8 K/UL (4.8-10.8) H Red Blood Count 5.59 M/UL (4.20-5.40) H Hemoglobin 13.0 G/DL (12.0-16.0) Hematocrit 42.3 % (37.0-47.0) Mean Corpuscular Volume 76 FL (80-99) L Mean Corpuscular Hemoglobin 23.2 PG (27.0-31.0) L Mean Corpuscular Hemoglobin Concent 30.7 G/DL (32.0-36.0) L Red Cell Distribution Width 15.5 % (11.6-14.8) H Platelet Count 361 K/UL (150-450) Mean Platelet Volume 7.2 FL (6.5-10.1) Neutrophils (%) (Auto) % (45.0-75.0) Lymphocytes (%) (Auto) % (20.0-45.0) Monocytes (%) (Auto) % (1.0-10.0) Eosinophils (%) (Auto) % (0.0-3.0) Basophils (%) (Auto) % (0.0-2.0) Differential Total Cells Counted 100 Neutrophils % (Manual) 83 % (45-75) H Lymphocytes % (Manual) 12 % (20-45) L Monocytes % (Manual) 3 % (1-10) Eosinophils % (Manual) 0 % (0-3) Basophils % (Manual) 0 % (0-2) Band Neutrophils 2 % (0-8) Platelet Estimate Adequate Platelet Morphology Normal Polychromasia 1+ Hypochromasia 1+ Anisocytosis 1+ Microcytosis 1+ Sodium Level 136 mEQ/L (135-145) Potassium Level 3.2 mEQ/L (3.4-4.9) L Chloride Level 93 mEQ/L (98-107) L Carbon Dioxide Level 16 mEQ/L (20-30) L Anion Gap 27 (5-15) H Blood Urea Nitrogen 12 mg/dL (7-23) Creatinine 0.8 mg/dL (0.5-0.9) Estimat Glomerular Filtration Rate > 60 mL/min (>60) Glucose Level 238 mg/dL (74-106) H Calcium Level 10.1 mg/dL (8.6-10.2) Total Bilirubin 0.9 mg/dL (0.0-1.2) Aspartate Amino Transf (AST/SGOT) 18 U/L (5-40) Alanine Aminotransferase (ALT/SGPT) 18 U/L (3-33) Alkaline Phosphatase 116 U/L (35-104) H Troponin I < 0.30 ng/mL (<=0.30) Total Protein 8.1 g/dL (6.6-8.7) Albumin 4.3 g/dL (3.5-5.2) Globulin 3.8 g/dL Albumin/Globulin Ratio 1.1 (1.0-2.7) Lipase 32 U/L (< 60) Urine Color Pale yellow Urine Appearance Cloudy Urine pH 7 (4.5-8.0) Urine Specific [place] 1.005 (1.005-1.035) Urine Protein 3+ (NEGATIVE) H Urine Glucose (UA) 3+ (NEGATIVE) H Urine Ketones 3+ (NEGATIVE) H Urine Occult Blood 3+ (NEGATIVE) H Urine Nitrite Positive (NEGATIVE) H Urine Bilirubin Negative (NEGATIVE) Urine Urobilinogen Normal MG/DL (0.0-1.0) Urine Leukocyte Esterase 3+ (NEGATIVE) H Urine RBC 0-2 /HPF (0 - 2) Urine WBC 20-30 /HPF (0 - 2) H Urine Squamous Epithelial Cells Moderate /LPF (NONE/OCC) H Urine Bacteria Many /HPF (NONE) H Urine HCG, Qualitative Negative Urine Opiates Screen Negative (NEGATIVE) Urine Barbiturates Screen Negative (NEGATIVE) Phencyclidine (PCP) Screen Negative (NEGATIVE) Urine Amphetamines Screen Negative (NEGATIVE) Urine Benzodiazepines Screen Negative (NEGATIVE) Urine Cocaine Screen Negative (NEGATIVE) Urine Marijuana (THC) Screen Positive (NEGATIVE) H Urine Legionella Antigen Pending Lactic Acid Level 2.80 mmol/L (0.66-2.22) H 2.50 mmol/L (0.66-2.22) H Height (Feet): 5 Height (Inches): 7.00 Weight (Pounds): 170 Medications Current Medications Medications (Trade) Dose Ordered Sig/Jim Route PRN Reason Start Time Stop Time Status Last Admin Dose Admin Acetaminophen (Tylenol) 650 mg Q4H PRN ORAL fever 11/03/16 17:45 12/03/16 17:44 Acetaminophen/ Hydrocodone Bitart ([place] 10/325) 1 ea PRN PRN ORAL For Pain 5-7 11/03/16 17:45 11/10/16 17:44 11/03/16 21:19 Al Hydroxide/Mg Hydroxide (Mylanta II) 30 ml Q6H PRN ORAL dyspepsia 11/03/16 17:45 12/03/16 17:44 Albuterol/ Ipratropium 3 ml 3 ml EVERY 4 HOURS PRN HHN Shortness of Breath 11/03/16 17:45 11/08/16 17:44 Amlodipine Besylate (Norvasc) 10 mg DAILY ORAL 11/04/16 09:00 12/04/16 08:59 Benazepril HCl (Lotensin) 10 mg DAILY ORAL 11/04/16 09:00 12/04/16 08:59 Carvedilol (Coreg) 3.125 mg BID ORAL 11/03/16 21:00 12/03/16 20:59 11/03/16 21:15 Cefepime HCl/ Dextrose (Maxipime/D5W) 55 ml @ 110 mls/hr EVERY 12 HOURS IV 11/03/16 21:00 11/10/16 20:59 11/03/16 21:15 Celecoxib (CeleBREX) 200 mg DAILY ORAL 11/04/16 09:00 12/04/16 08:59 Dextrose (Dextrose 50%) STAT PRN IV Hypoglycemia 11/03/16 17:45 12/03/16 17:44 Heparin Sodium (Porcine) (Heparin 5000 units/ml) 5,000 units EVERY 12 HOURS SUBQ 11/03/16 21:00 12/03/16 20:59 11/03/16 21:20 Insulin Aspart (NovoLOG) BEFORE MEALS AND HS SUBQ 11/03/16 21:00 12/03/16 20:59 11/03/16 21:30 Magnesium Hydroxide (Mom) 30 ml DAILY PRN ORAL Constipation 11/04/16 09:00 12/04/16 08:59 Nitroglycerin (Ntg) 0.4 mg Q5M PRN SL Prn Chest Pain 11/03/16 17:45 12/03/16 17:44 Ondansetron HCl (Zofran) 4 mg Q6H PRN IVP Nausea & Vomiting 11/03/16 17:45 12/03/16 17:44 Oxycodone HCl (OxyCONTIN) 20 mg EVERY 12 HOURS ORAL 11/03/16 21:00 11/10/16 20:59 Polyethylene Glycol (Miralax) 17 gm DAILYPRN PRN ORAL Constipation 11/03/16 17:45 12/03/16 17:44 Promethazine HCl/ Codeine (Phenergan with Codeine) 5 ml Q4H PRN ORAL For Cough 11/03/16 17:45 12/03/16 17:44 Temazepam (Restoril) 15 mg HSPRN PRN ORAL Insomnia 11/03/16 17:45 11/10/16 17:44 LATANYA KNIGHT Nov 03, 2016 22:28
[2016-11-04] VITALS: BP 125/72
[2016-11-04 04:00] VITALS: BP 151/82
[2016-11-04] MEDS: NovoLOG Insulin Flexpen SUBQ SCH ×4 (05:56→21:30)
[2016-11-04 07:26] LABS: MEAN CORPUSCULAR HEMOGLOBIN 23.9 PG (27.0-31.0); MEAN CORPUSCULAR HGB CONC 31.8 G/DL (32.0-36.0); MEAN CORPUSCULAR VOLUME 75 FL (80-99); MEAN PLATELET VOLUME 7.3 FL (6.5-10.1); PLATELET COUNT 319 K/UL (150-450); RED BLOOD COUNT 4.95 M/UL (4.20-5.40); WHITE BLOOD COUNT 20.7 K/UL (4.8-10.8)
[2016-11-04 08:02] LABS: ANION GAP 21 (5-15); CALCIUM 9.4 mg/dL (8.6-10.2); CARBON DIOXIDE 21 mEQ/L (20-30); CHLORIDE 95 mEQ/L (98-107); CREATININE 0.7 mg/dL (0.5-0.9); GLOMERULAR FILTRATION RATE > 60 mL/min (>60); HEMOLYSIS 2; PHOSPHORUS 3.6 mg/dL (2.5-4.8); POTASSIUM 3.5 mEQ/L (3.4-4.9); SODIUM 137 mEQ/L (135-145)
--- NOTE | 2016-11-04 08:29 | Diagnostic Imaging Report ---
Indication: Shortness of breath Technique: Single portable AP view of the chest. Findings: Comparison: None. Small linear density lateral left lower lung. Right lung clear. Thoracic mildly calcified and elongated. The bones and extra pulmonary soft tissues, remainder of the cardiomediastinal silhouette, pulmonary vasculature, and pleural surfaces are unremarkable. IMPRESSION: Subsegmental atelectasis versus scarring left lung base Aortosclerosis and probable mild chronic hypertensive change Otherwise negative.
[2016-11-04] MEDS: oxyCONTIN 20mg tab ORAL SCH ×2 (08:33→21:31)
[2016-11-04] MEDS: Cefepime HCl 1 GM in D5W 55 ML IV SCH ×2 (08:36→21:31)
[2016-11-04] MEDS: celeBREX 200mg Cap **SURGERY PATIENTS ONLY ORAL SCH (08:37)
[2016-11-04] MEDS: Benazepril 10mg tab ORAL SCH (08:38)
[2016-11-04] MEDS: Heparin 5000 units/ml inj SUBQ SCH ×2 (08:40→21:31)
[2016-11-04 08:41] VITALS: BP 126/67
[2016-11-04 09:00] LABS: ANISOCYTOSIS 1+; BAND NEUTROPHILS % (MANUAL) 0 % (0-8); BASOPHILS % (MANUAL) 1 % (0-2); EOSINOPHILS % (MANUAL) 2 % (0-3); HYPOCHROMASIA 1+; LYMPHOCYTES % (MANUAL) 11 % (20-45); MICROCYTES 1+; NEUTROPHILS % (MANUAL) 80 % (45-75); PLATELET ESTIMATE ADEQUATE; PLATELET MORPHOLOGY NORMAL; TOTAL CELLS COUNTED 100
[2016-11-04 12:22] VITALS: BP 116/74
[2016-11-04] MEDS: Norco 10mg/325mg tab ORAL PRN (16:24)
--- NOTE | 2016-11-04 16:35 | Pulmonology Progress Note ---
Subjective Allergies: Coded Allergies: No Known Allergies (Unverified , 05/11/16) Objective Last 24 Hour Vital Signs Date Time Temp Pulse Resp B/P Pulse Ox O2 Delivery O2 Flow Rate FiO2 11/04/16 13:25 95 18 96 Room Air 11/04/16 13:25 95 18 96 Room Air 11/04/16 12:22 97.9 77 20 116/74 98 Room Air 11/04/16 08:41 98.1 81 20 126/67 99 Room Air 11/04/16 08:38 81 126/67 11/04/16 08:38 126/67 11/04/16 08:38 81 126/67 11/04/16 07:20 105 20 98 Room Air 11/04/16 07:20 105 20 98 Room Air 11/04/16 04:00 97.2 78 18 151/82 98 Room Air 11/04/16 01:27 110 20 98 Room Air 11/04/16 01:27 111 20 98 Room Air 11/04/16 00:00 97.7 80 18 125/72 99 Room Air 11/03/16 21:15 123 141/84 11/03/16 20:34 120 20 98 Room Air 11/03/16 20:33 120 20 98 Room Air 11/03/16 20:00 99.5 123 16 141/84 100 Room Air 11/03/16 18:31 97.9 120 20 158/90 98 Room Air 11/03/16 17:53 99.5 112 22 137/98 98 Room Air 11/03/16 17:49 112 22 137/98 98 Room Air 11/03/16 17:30 99.5 98 14 101/48 99 Room Air Intake and Output 11/03/16 11/04/16 19:00 07:00 Intake Total 322.5 ml 620 ml Output Total 550 ml Balance -227.5 ml 620 ml Intake Oral 50 ml 620 ml IV Total 272.5 ml Output Urine Total 550 ml # Voids 2 Microbiology Date/Time Source Procedure Growth Status 11/03/16 15:30 Blood Blood Culture - Preliminary Gram Negative Jensen Resulted 11/03/16 15:15 Blood Blood Culture - Preliminary Gram Negative Jensen Resulted 11/03/16 14:30 Urine,Clean Catch Urine Culture - Preliminary Gram Negative Jensen Resulted Laboratory Tests 11/04/16 06:00: Urine Legionella Antigen [Pending] 11/04/16 06:41: White Blood Count 20.7H, Red Blood Count 4.95, Hemoglobin 11.8L, Hematocrit 37.2 , Mean Corpuscular Volume 75L, Mean Corpuscular Hemoglobin 23.9L, Mean Corpuscular Hemoglobin Concent 31.8L, Red Cell Distribution Width 16.0H, Platelet Count 319, Mean Platelet Volume 7.3, Neutrophils (%) (Auto) , Lymphocytes (%) (Auto) , Monocytes (%) (Auto) , Eosinophils (%) (Auto) , Basophils (%) (Auto) , Differential Total Cells Counted 100, Neutrophils % ( Manual) 80H, Lymphocytes % (Manual) 11L, Monocytes % (Manual) 6, Eosinophils % ( Manual) 2, Basophils % (Manual) 1, Band Neutrophils 0, Platelet Estimate Adequate, Platelet Morphology Normal, Hypochromasia 1+, Anisocytosis 1+, Microcytosis 1+, Sodium Level 137, Potassium Level 3.5, Chloride Level 95L, Carbon Dioxide Level 21, Anion Gap 21H, Blood Urea Nitrogen 15, Creatinine 0.7, Estimat Glomerular Filtration Rate > 60, Glucose Level 160H, Calcium Level 9.4, Phosphorus Level 3.6, Albumin 3.8 Current Medications Medications (Trade) Dose Ordered Sig/Jim Route PRN Reason Start Time Stop Time Status Last Admin Dose Admin Acetaminophen (Tylenol) 650 mg Q4H PRN ORAL fever 11/03/16 17:45 12/03/16 17:44 Acetaminophen/ Hydrocodone Bitart ([place] 10/325) 1 ea PRN PRN ORAL For Pain 5-7 11/03/16 17:45 11/10/16 17:44 11/04/16 16:24 Al Hydroxide/Mg Hydroxide (Mylanta II) 30 ml Q6H PRN ORAL dyspepsia 11/03/16 17:45 12/03/16 17:44 Albuterol/ Ipratropium 3 ml 3 ml EVERY 4 HOURS PRN HHN Shortness of Breath 11/03/16 17:45 11/08/16 17:44 Amlodipine Besylate (Norvasc) 10 mg DAILY ORAL 11/04/16 09:00 12/04/16 08:59 11/04/16 08:38 Benazepril HCl (Lotensin) 10 mg DAILY ORAL 11/04/16 09:00 12/04/16 08:59 11/04/16 08:38 Carvedilol (Coreg) 3.125 mg BID ORAL 11/03/16 21:00 12/03/16 20:59 11/04/16 08:38 Cefepime HCl/ Dextrose (Maxipime/D5W) 55 ml @ 110 mls/hr EVERY 12 HOURS IV 11/03/16 21:00 11/10/16 20:59 11/04/16 08:36 Celecoxib (CeleBREX) 200 mg DAILY ORAL 11/04/16 09:00 12/04/16 08:59 11/04/16 08:37 Dextrose (Dextrose 50%) STAT PRN IV Hypoglycemia 11/03/16 17:45 12/03/16 17:44 Heparin Sodium (Porcine) (Heparin 5000 units/ml) 5,000 units EVERY 12 HOURS SUBQ 11/03/16 21:00 12/03/16 20:59 11/04/16 08:40 Insulin Aspart (NovoLOG) BEFORE MEALS AND HS SUBQ 11/03/16 21:00 12/03/16 20:59 11/04/16 16:21 Magnesium Hydroxide (Mom) 30 ml DAILY PRN ORAL Constipation 11/04/16 09:00 12/04/16 08:59 Nitroglycerin (Ntg) 0.4 mg Q5M PRN SL Prn Chest Pain 11/03/16 17:45 12/03/16 17:44 Ondansetron HCl (Zofran) 4 mg Q6H PRN IVP Nausea & Vomiting 11/03/16 17:45 12/03/16 17:44 Oxycodone HCl (OxyCONTIN) 20 mg EVERY 12 HOURS ORAL 11/03/16 21:00 11/10/16 20:59 Polyethylene Glycol (Miralax) 17 gm DAILYPRN PRN ORAL Constipation 11/03/16 17:45 12/03/16 17:44 Promethazine HCl/ Codeine (Phenergan with Codeine) 5 ml Q4H PRN ORAL For Cough 11/03/16 17:45 12/03/16 17:44 Temazepam (Restoril) 15 mg HSPRN PRN ORAL Insomnia 11/03/16 17:45 11/10/16 17:44 LATANYA KNIGHT Nov 04, 2016 16:35
[2016-11-04 16:45] VITALS: BP 139/72
--- NOTE | 2016-11-04 17:01 | History & Physical ---
History and Physical History & Physicial job # [id number] Luis Fernando Cintron MD Nov 04, 2016 17:01
--- NOTE | 2016-11-04 19:22 | Consultation ---
Consult Note Consult Note ID Dic # [id number] CRISTY NELSON M.D. Nov 04, 2016 19:22
[2016-11-04 20:00] VITALS: BP 151/80
[2016-11-04] MEDS ORDERED: Heparin 5000 units/ml inj SUBQ SCH (21:00)
[2016-11-04] MEDS ORDERED: NS 550ML IV ONE (22:46)
[2016-11-04] MEDS ORDERED: Tubing IV Secondary IV ONE (22:46)
[2016-11-05] VITALS: BP 128/79
--- NOTE | 2016-11-05 00:28 | History and Physical Report ---
DATE OF ADMISSION: 11/03/2016 CHIEF COMPLAINT: Lower abdominal pain. HISTORY OF PRESENT ILLNESS: This is a 61 years old female with past medical history significant for diabetes type 2, hypertension, bilateral knee surgery, prior history of stroke in 2004, who was presented to the hospital, complained about lower abdominal pain, associated with fever, chills, and dysuria. Denies any vomiting, however, without episodes of nausea. Denies any diarrhea or shortness of breath. Shortly after initial evaluation in emergency, the patient was noted to have elevated white count and the patient subsequently was admitted to the hospital with sepsis secondary to urinary tract infection. PAST MEDICAL HISTORY/PAST SURGICAL HISTORY: As above history of hypertension, diabetes type 2, history of CVA in 2004, and bilateral knee replacement due to osteoarthritis. MEDICATIONS: Medications at home are significant for amlodipine 10 mg p.o. daily, benazepril 10 mg p.o. daily, Celebrex 400 mg daily, Colace 100 mg t.i.d., Lovenox 30 mg subcutaneous b.i.d., iron sulfate 325 mg t.i.d., glipizide 10 mg daily, [place] 10/325 p.r.n., Aspart insulin, milk of magnesia, metformin 500 mg twice a day, and oxycodone 20 mg twice a day. ALLERGIES: No known drug allergy. SOCIAL HISTORY: Denies any smoking. She smokes marijuana. Denies any substance abuse. Socially drinks. 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 She denies any heavy lifting. FAMILY HISTORY: Noncontributory. REVIEW OF SYSTEMS: Mostly as above. Denies any hemoptysis. She has complained of dysuria and complained about frequency. Denies any loss of consciousness. Denies any double vision. Denies any suicidal or homicidal ideation. PHYSICAL EXAMINATION: VITAL SIGNS: Admission from the ER is significant for temperature of 99.5, pulse of 92, respiration 18, and blood pressure 158/112, repeat one was 177/103. GENERAL: The patient is awake, responsive, in no acute distress. HEENT: Head and neck examination, pupils are equal and reactive to light. Extraocular movements are intact. NECK: Supple. No JVD. LUNGS: Good air entry. No wheezes or rales. HEART: S1 and S2. Regular rhythm. No gallops. ABDOMEN: Soft and nontender. Mildly obese. EXTREMITIES: No cyanosis, clubbing, or edema. Bilateral knee surgical scar was noted, well healed. GENITOURINARY/RECTAL: Refused and deferred. PSYCHIATRIC: Mood and affect are intact. LABORATORY AND DIAGNOSTIC DATA: On admission, WBC of 20.8, hemoglobin 13, hematocrit 42, and platelets 361,000. Sodium 136, potassium 3.2, chloride 93, bicarb is 16, BUN 12, creatinine 0.8, glucose is 238, lactic acid is 2.80. Alkaline phosphatase is 116. First troponin is less than 0.30. Lipase is 32. Urine culture significant for marijuana. Urinalysis +3 protein, +3 glucose, +2 ketones, positive nitrite, positive leukocytes, and 20 to 30 RBC, many bacteria. The patient had EKG done, which noted to be sinus tachycardia with a premature ventricular complex, ventricular rate of 105, otherwise, no ST elevation was identified. ASSESSMENT: 1. Dehydration. 2. Sepsis secondary to urinary tract infection with gram-negative rods. 3. Diabetes type 2, uncontrolled. 4. Hypertension. 5. History of CVA. 6. Mild obesity. PLAN: Admit the patient to medical floor. We will follow up laboratory the patient by Dr. Siddiqui. Aggressive IV hydration. Accu-Chek with sliding scale. Continue with cefepime for antibiotic therapy. Follow up with the cultures. Code status is Full Code. DVT prophylaxis. Heparin subcutaneous. Luis Fernando Cintron M.D. DR: BRANNON JOB#: [id number] CC:
[2016-11-05 04:05] VITALS: BP 141/84
[2016-11-05] MEDS: NovoLOG Insulin Flexpen SUBQ SCH ×4 (05:55→20:35)
[2016-11-05 06:58] LABS: BASOPHILS % (AUTO) 0.3 % (0.0-2.0); EOSINOPHILS % (AUTO) 0.1 % (0.0-3.0); LYMPHOCYTES % (AUTO) 10.7 % (20.0-45.0); MEAN CORPUSCULAR HEMOGLOBIN 23.5 PG (27.0-31.0); MEAN CORPUSCULAR HGB CONC 31.3 G/DL (32.0-36.0); MEAN CORPUSCULAR VOLUME 75 FL (80-99); MEAN PLATELET VOLUME 7.7 FL (6.5-10.1); MONOCYTES % (AUTO) 7.1 % (1.0-10.0); NEUTROPHILS % (AUTO) 81.9 % (45.0-75.0); PLATELET COUNT 293 K/UL (150-450); RED BLOOD COUNT 4.88 M/UL (4.20-5.40); RED CELL DISTRIBUTION WIDTH 15.8 % (11.6-14.8); WHITE BLOOD COUNT 11.9 K/UL (4.8-10.8)
[2016-11-05 08:00] VITALS: BP 144/87
[2016-11-05 08:41] LABS: ERYTHROCYTE SEDIMENTATION RATE 44 MM/HR (0-30)
[2016-11-05 08:42] LABS: ALANINE AMINOTRANSFERASE 17 U/L (3-33); ALBUMIN/GLOBULIN RATIO 0.9 (1.0-2.7); ANION GAP 17 (5-15); ASPARTATE AMINO TRANSFERASE 24 U/L (5-40); CALCIUM 9.4 mg/dL (8.6-10.2); CARBON DIOXIDE 22 mEQ/L (20-30); CHLORIDE 94 mEQ/L (98-107); CREATININE 0.8 mg/dL (0.5-0.9); CRP QUANT 6.5 mg/dL (< 0.5); GLOMERULAR FILTRATION RATE > 60 mL/min (>60); HEMOLYSIS 0; MAGNESIUM 1.8 mg/dL (1.7-2.5); PHOSPHORUS 2.7 mg/dL (2.5-4.8); POTASSIUM 3.9 mEQ/L (3.4-4.9); SODIUM 133 mEQ/L (135-145); TOTAL PROTEIN 7.2 g/dL (6.6-8.7)
[2016-11-05] MEDS ORDERED: NORCO 10-325 T1 EACH ORAL (09:12)
[2016-11-05] MEDS: Cefepime HCl 1 GM in D5W 55 ML IV SCH ×2 (09:32→20:29)
[2016-11-05] MEDS: celeBREX 200mg Cap **SURGERY PATIENTS ONLY ORAL SCH (09:34)
[2016-11-05] MEDS: oxyCONTIN 20mg tab ORAL SCH ×2 (09:35→20:29)
[2016-11-05] MEDS: Benazepril 10mg tab ORAL SCH (09:36)
[2016-11-05] MEDS: Heparin 5000 units/ml inj SUBQ SCH ×2 (09:39→20:32)
[2016-11-05 12:00] VITALS: BP 138/82
[2016-11-05 16:00] VITALS: BP 131/76
--- NOTE | 2016-11-05 17:23 | Internal Med Progress Note ---
Subjective Date of Service: Nov 05, 2016 Physician Name Tia Mon Attending Physician Luis Fernando Cintron MD Current Medications Medications (Trade) Dose Ordered Sig/Jim Route PRN Reason Start Time Stop Time Status Last Admin Dose Admin Acetaminophen (Tylenol) 650 mg Q4H PRN ORAL fever 11/03/16 17:45 12/03/16 17:44 Acetaminophen/ Hydrocodone Bitart ([place] 10/325) 1 ea PRN PRN ORAL For Pain 5-7 11/03/16 17:45 11/10/16 17:44 11/04/16 16:24 Al Hydroxide/Mg Hydroxide (Mylanta II) 30 ml Q6H PRN ORAL dyspepsia 11/03/16 17:45 12/03/16 17:44 Albuterol/ Ipratropium 3 ml 3 ml EVERY 4 HOURS PRN HHN Shortness of Breath 11/03/16 17:45 11/08/16 17:44 Amlodipine Besylate (Norvasc) 10 mg DAILY ORAL 11/04/16 09:00 12/04/16 08:59 11/05/16 09:34 Benazepril HCl (Lotensin) 10 mg DAILY ORAL 11/04/16 09:00 12/04/16 08:59 11/05/16 09:36 Carvedilol (Coreg) 3.125 mg BID ORAL 11/03/16 21:00 12/03/16 20:59 11/05/16 09:35 Cefepime HCl/ Dextrose (Maxipime/D5W) 55 ml @ 110 mls/hr EVERY 12 HOURS IV 11/03/16 21:00 11/10/16 20:59 11/05/16 09:32 Celecoxib (CeleBREX) 200 mg DAILY ORAL 11/04/16 09:00 12/04/16 08:59 11/05/16 09:34 Dextrose (Dextrose 50%) STAT PRN IV Hypoglycemia 11/03/16 17:45 12/03/16 17:44 Heparin Sodium (Porcine) (Heparin 5000 units/ml) 5,000 units EVERY 12 HOURS SUBQ 11/03/16 21:00 12/03/16 20:59 11/05/16 09:39 Insulin Aspart (NovoLOG) BEFORE MEALS AND HS SUBQ 11/03/16 21:00 12/03/16 20:59 11/05/16 16:30 Magnesium Hydroxide (Mom) 30 ml DAILY PRN ORAL Constipation 11/04/16 09:00 12/04/16 08:59 Nitroglycerin (Ntg) 0.4 mg Q5M PRN SL Prn Chest Pain 11/03/16 17:45 12/03/16 17:44 Ondansetron HCl (Zofran) 4 mg Q6H PRN IVP Nausea & Vomiting 11/03/16 17:45 12/03/16 17:44 11/05/16 13:52 Oxycodone HCl (OxyCONTIN) 20 mg EVERY 12 HOURS ORAL 11/03/16 21:00 11/10/16 20:59 11/05/16 09:35 Polyethylene Glycol (Miralax) 17 gm DAILYPRN PRN ORAL Constipation 11/03/16 17:45 12/03/16 17:44 Promethazine HCl/ Codeine (Phenergan with Codeine) 5 ml Q4H PRN ORAL For Cough 11/03/16 17:45 12/03/16 17:44 Temazepam (Restoril) 15 mg HSPRN PRN ORAL Insomnia 11/03/16 17:45 11/10/16 17:44 Allergies: Coded Allergies: No Known Allergies (Unverified , 05/11/16) ROS Limited/Unobtainable: No Constitutional: Reports: no symptoms HEENT: Reports: no symptoms Cardiovascular: Reports: no symptoms Respiratory: Reports: no symptoms Gastrointestinal/Abdominal: Reports: abdominal pain Genitourinary: Reports: no symptoms Neurologic/Psychiatric: Reports: no symptoms Subjective 61 YO F admitted with abdominal pain. Now UTI and sepsis. Cover for Int [facility]- Dr Cintron. Objective Last Vital Signs Date Time Temp Pulse Resp B/P Pulse Ox O2 Delivery O2 Flow Rate FiO2 11/05/16 16:00 97.3 54 16 131/76 100 Room Air Laboratory Tests Test 11/05/16 05:10 White Blood Count 11.9 K/UL (4.8-10.8) H Red Blood Count 4.88 M/UL (4.20-5.40) Hemoglobin 11.5 G/DL (12.0-16.0) L Hematocrit 36.8 % (37.0-47.0) L Mean Corpuscular Volume 75 FL (80-99) L Mean Corpuscular Hemoglobin 23.5 PG (27.0-31.0) L Mean Corpuscular Hemoglobin Concent 31.3 G/DL (32.0-36.0) L Red Cell Distribution Width 15.8 % (11.6-14.8) H Platelet Count 293 K/UL (150-450) Mean Platelet Volume 7.7 FL (6.5-10.1) Neutrophils (%) (Auto) 81.9 % (45.0-75.0) H Lymphocytes (%) (Auto) 10.7 % (20.0-45.0) L Monocytes (%) (Auto) 7.1 % (1.0-10.0) Eosinophils (%) (Auto) 0.1 % (0.0-3.0) Basophils (%) (Auto) 0.3 % (0.0-2.0) Erythrocyte Sedimentation Rate 44 MM/HR (0-30) H Sodium Level 133 mEQ/L (135-145) L Potassium Level 3.9 mEQ/L (3.4-4.9) Chloride Level 94 mEQ/L (98-107) L Carbon Dioxide Level 22 mEQ/L (20-30) Anion Gap 17 (5-15) H Blood Urea Nitrogen 16 mg/dL (7-23) Creatinine 0.8 mg/dL (0.5-0.9) Estimat Glomerular Filtration Rate > 60 mL/min (>60) Glucose Level 175 mg/dL (74-106) H Calcium Level 9.4 mg/dL (8.6-10.2) Phosphorus Level 2.7 mg/dL (2.5-4.8) Magnesium Level 1.8 mg/dL (1.7-2.5) Total Bilirubin 0.3 mg/dL (0.0-1.2) Aspartate Amino Transf (AST/SGOT) 24 U/L (5-40) Alanine Aminotransferase (ALT/SGPT) 17 U/L (3-33) Alkaline Phosphatase 112 U/L (35-104) H C-Reactive Protein, Quantitative 6.5 mg/dL (< 0.5) H Total Protein 7.2 g/dL (6.6-8.7) Albumin 3.5 g/dL (3.5-5.2) Globulin 3.7 g/dL Albumin/Globulin Ratio 0.9 (1.0-2.7) L Microbiology Date/Time Source Procedure Growth Status 11/03/16 15:30 Blood Blood Culture - Preliminary Gram Negative Jensen Resulted 11/03/16 15:15 Blood Blood Culture - Preliminary Gram Negative Jensen Resulted 11/03/16 14:30 Urine,Clean Catch Urine Culture - Final Escherichia Coli Complete Intake and Output 11/04/16 11/05/16 19:00 07:00 Intake Total 55 ml 535 ml Balance 55 ml 535 ml Intake Oral 480 ml IV Total 55 ml 55 ml # Voids 1 Objective General: alert, cooperative, no distress, appears stated age Head: normocephalic, without obvious abnormality, atraumatic Eyes: conjunctivae/corneas clear. PERRL, EOM's intact Throat: lips, mucosa, and tongue normal. MMM Neck: supple, symmetrical, trachea midline, and no JVD Lungs: clear to auscultation bilaterally Heart: regular rate and rhythm, S1, S2 normal, no murmur, click, rub or gallop Abdomen: soft, tender to palp vlad lower quad, non-distended, bowel sounds normal ; no masses or organomegaly Extremities: extremities normal, atraumatic, no cyanosis or edema Pulses: 2+ and symmetric Skin: skin color, texture, turgor normal; no rashes or lesions Neurologic: grossly normal, no focal deficits Assessment/Plan Problem List: (1) Sepsis Assessment & Plan: Gram neg rods. Probably E. Coli from urine. Await ID and sensitivities. Cont cefepime for now. Follow Inf Dis recs. (2) Diabetes mellitus type II, uncontrolled Assessment & Plan: Cont novolog sliding scale. (3) HTN (hypertension) Assessment & Plan: Cont norvasc, lisinorpil and coreg. (4) Cerebral vascular disease (5) UTI (urinary tract infection) Assessment & Plan: E. Coli. Cont cefepime per ID. (6) Leukocytosis Status: not improved TIA MON Nov 05, 2016 17:23
[2016-11-05 20:25] VITALS: BP 154/80
[2016-11-05] MEDS: Norco 10mg/325mg tab ORAL PRN (20:31)
[2016-11-06 04:00] VITALS: BP 134/77
[2016-11-06] MEDS: NovoLOG Insulin Flexpen SUBQ SCH ×4 (06:37→20:12)
[2016-11-06] MEDS: Milk of Magnesia 30ml Ud ORAL PRN ×2 (06:51→20:23)
[2016-11-06 07:10] LABS: BASOPHILS % (AUTO) 0.4 % (0.0-2.0); EOSINOPHILS % (AUTO) 0.5 % (0.0-3.0); LYMPHOCYTES % (AUTO) 18.8 % (20.0-45.0); MEAN CORPUSCULAR HEMOGLOBIN 22.9 PG (27.0-31.0); MEAN CORPUSCULAR HGB CONC 30.3 G/DL (32.0-36.0); MEAN CORPUSCULAR VOLUME 76 FL (80-99); MEAN PLATELET VOLUME 7.6 FL (6.5-10.1); MONOCYTES % (AUTO) 12.1 % (1.0-10.0); NEUTROPHILS % (AUTO) 68.2 % (45.0-75.0); PLATELET COUNT 334 K/UL (150-450); RED BLOOD COUNT 5.57 M/UL (4.20-5.40); RED CELL DISTRIBUTION WIDTH 15.4 % (11.6-14.8); WHITE BLOOD COUNT 9.2 K/UL (4.8-10.8)
[2016-11-06 07:29] LABS: ANION GAP 18 (5-15); CALCIUM 9.4 mg/dL (8.6-10.2); CARBON DIOXIDE 21 mEQ/L (20-30); CHLORIDE 95 mEQ/L (98-107); CREATININE 0.7 mg/dL (0.5-0.9); GLOMERULAR FILTRATION RATE > 60 mL/min (>60); HEMOLYSIS 4; POTASSIUM 4.1 mEQ/L (3.4-4.9); SODIUM 134 mEQ/L (135-145)
[2016-11-06 07:57] VITALS: BP 140/88
[2016-11-06] MEDS: oxyCONTIN 20mg tab ORAL SCH ×2 (09:00→20:19)
[2016-11-06] MEDS: Cefepime HCl 1 GM in D5W 55 ML IV SCH ×2 (09:15→20:13)
[2016-11-06] MEDS: celeBREX 200mg Cap **SURGERY PATIENTS ONLY ORAL SCH (09:16)
[2016-11-06] MEDS: Benazepril 10mg tab ORAL SCH (09:17)
[2016-11-06] MEDS: Heparin 5000 units/ml inj SUBQ SCH ×2 (09:22→20:13)
--- NOTE | 2016-11-06 09:59 | Infectious Diseases Prog Note ---
Assessment/Plan Assessment/Plan A: E.coli sepsis E. Coli UTI DM HPN P; continue Cefepime at time discharge PO Levaquin renal / bladder US Subjective ROS Limited/Unobtainable: No Constitutional: Reports: no symptoms Respiratory: Reports: no symptoms Gastrointestinal/Abdominal: Reports: nausea, vomiting Genitourinary: Reports: no symptoms Musculoskeletal: Reports: other - back pain Allergies: Coded Allergies: No Known Allergies (Unverified , 05/11/16) Objective Vital Signs Last 24 Hour Vital Signs Date Time Temp Pulse Resp B/P Pulse Ox O2 Delivery O2 Flow Rate FiO2 11/06/16 09:18 74 140/85 11/06/16 09:17 140/85 11/06/16 09:16 74 140/85 11/06/16 07:57 98.4 74 20 140/88 99 Room Air 11/06/16 06:58 75 16 98 Room Air 11/06/16 06:03 72 18 98 Room Air 11/06/16 04:00 99.1 77 18 134/77 97 11/06/16 01:40 70 18 98 Room Air 11/06/16 01:35 70 16 98 Room Air 11/05/16 20:25 98.2 74 18 154/80 99 Room Air 11/05/16 19:43 70 18 98 Room Air 11/05/16 19:43 69 16 98 Room Air 11/05/16 17:22 54 131/76 11/05/16 16:00 97.3 54 16 131/76 100 Room Air 11/05/16 13:10 66 16 99 Room Air 11/05/16 13:10 75 17 99 Room Air 11/05/16 12:00 97.5 66 18 138/82 98 Room Air 11/05/16 10:34 97.7 Height (Feet): 5 Height (Inches): 7.00 Weight (Pounds): 170 General Appearance: no acute distress HEENT: mucous membranes moist Respiratory/Chest: lungs clear Cardiovascular: normal rate Abdomen: soft, non tender Extremities: no edema Neurologic/Psychiatric: alert, oriented x 3, responsive Microbiology Date/Time Source Procedure Growth Status 11/03/16 15:30 Blood Blood Culture - Final Escherichia Coli Complete 11/03/16 15:15 Blood Blood Culture - Final Escherichia Coli Complete 11/03/16 14:30 Urine,Clean Catch Urine Culture - Final Escherichia Coli Complete Laboratory Tests Test 11/06/16 05:10 White Blood Count 9.2 K/UL (4.8-10.8) Red Blood Count 5.57 M/UL (4.20-5.40) H Hemoglobin 12.7 G/DL (12.0-16.0) Hematocrit 42.0 % (37.0-47.0) Mean Corpuscular Volume 76 FL (80-99) L Mean Corpuscular Hemoglobin 22.9 PG (27.0-31.0) L Mean Corpuscular Hemoglobin Concent 30.3 G/DL (32.0-36.0) L Red Cell Distribution Width 15.4 % (11.6-14.8) H Platelet Count 334 K/UL (150-450) Mean Platelet Volume 7.6 FL (6.5-10.1) Neutrophils (%) (Auto) 68.2 % (45.0-75.0) Lymphocytes (%) (Auto) 18.8 % (20.0-45.0) L Monocytes (%) (Auto) 12.1 % (1.0-10.0) H Eosinophils (%) (Auto) 0.5 % (0.0-3.0) Basophils (%) (Auto) 0.4 % (0.0-2.0) Sodium Level 134 mEQ/L (135-145) L Potassium Level 4.1 mEQ/L (3.4-4.9) Chloride Level 95 mEQ/L (98-107) L Carbon Dioxide Level 21 mEQ/L (20-30) Anion Gap 18 (5-15) H Blood Urea Nitrogen 12 mg/dL (7-23) Creatinine 0.7 mg/dL (0.5-0.9) Estimat Glomerular Filtration Rate > 60 mL/min (>60) Glucose Level 185 mg/dL (74-106) H Calcium Level 9.4 mg/dL (8.6-10.2) Current Medications Medications (Trade) Dose Ordered Sig/Jim Route PRN Reason Start Time Stop Time Status Last Admin Dose Admin Acetaminophen (Tylenol) 650 mg Q4H PRN ORAL fever 11/03/16 17:45 12/03/16 17:44 Acetaminophen/ Hydrocodone Bitart ([place] 10) 1 ea PRN PRN ORAL For Pain 5-7 11/03/16 17:45 11/10/16 17:44 11/05/16 20:31 Al Hydroxide/Mg Hydroxide (Mylanta II) 30 ml Q6H PRN ORAL dyspepsia 11/03/16 17:45 12/03/16 17:44 Albuterol/ Ipratropium 3 ml 3 ml EVERY 4 HOURS PRN HHN Shortness of Breath 11/03/16 17:45 11/08/16 17:44 Amlodipine Besylate (Norvasc) 10 mg DAILY ORAL 11/04/16 09:00 12/04/16 08:59 11/06/16 09:16 Benazepril HCl (Lotensin) 10 mg DAILY ORAL 11/04/16 09:00 12/04/16 08:59 11/06/16 09:17 Carvedilol (Coreg) 3.125 mg BID ORAL 11/03/16 21:00 12/03/16 20:59 11/06/16 09:18 Cefepime HCl/ Dextrose (Maxipime/D5W) 55 ml @ 110 mls/hr EVERY 12 HOURS IV 11/03/16 21:00 11/10/16 20:59 11/06/16 09:15 Celecoxib (CeleBREX) 200 mg DAILY ORAL 11/04/16 09:00 12/04/16 08:59 11/06/16 09:16 Dextrose (Dextrose 50%) STAT PRN IV Hypoglycemia 11/03/16 17:45 12/03/16 17:44 Heparin Sodium (Porcine) (Heparin 5000 units/ml) 5,000 units EVERY 12 HOURS SUBQ 11/03/16 21:00 12/03/16 20:59 11/06/16 09:22 Insulin Aspart (NovoLOG) BEFORE MEALS AND HS SUBQ 11/03/16 21:00 12/03/16 20:59 11/06/16 06:37 Magnesium Hydroxide (Mom) 30 ml DAILY PRN ORAL Constipation 11/04/16 09:00 12/04/16 08:59 11/06/16 06:51 Nitroglycerin (Ntg) 0.4 mg Q5M PRN SL Prn Chest Pain 11/03/16 17:45 12/03/16 17:44 Ondansetron HCl (Zofran) 4 mg Q6H PRN IVP Nausea & Vomiting 11/03/16 17:45 12/03/16 17:44 11/05/16 13:52 Oxycodone HCl (OxyCONTIN) 20 mg EVERY 12 HOURS ORAL 11/03/16 21:00 11/10/16 20:59 11/05/16 09:35 Polyethylene Glycol (Miralax) 17 gm DAILYPRN PRN ORAL Constipation 11/03/16 17:45 12/03/16 17:44 Promethazine HCl/ Codeine (Phenergan with Codeine) 5 ml Q4H PRN ORAL For Cough 11/03/16 17:45 12/03/16 17:44 Temazepam (Restoril) 15 mg HSPRN PRN ORAL Insomnia 11/03/16 17:45 11/10/16 17:44 BERTHA SCHROEDER Nov 06, 2016 09:59
[2016-11-06 12:00] VITALS: BP 144/81
[2016-11-06] MEDS: Norco 10mg/325mg tab ORAL PRN (12:50)
[2016-11-06] MEDS ORDERED: Tubing IV Secondary IV ONE (15:01)
[2016-11-06 16:02] VITALS: BP 130/78
--- NOTE | 2016-11-06 18:09 | Internal Med Progress Note ---
Subjective Date of Service: Nov 06, 2016 Physician Name Tia Mon Attending Physician Luis Fernando Cintron MD Current Medications Medications (Trade) Dose Ordered Sig/Jim Route PRN Reason Start Time Stop Time Status Last Admin Dose Admin Acetaminophen (Tylenol) 650 mg Q4H PRN ORAL fever 11/03/16 17:45 12/03/16 17:44 Acetaminophen/ Hydrocodone Bitart ([place] 10/325) 1 ea PRN PRN ORAL For Pain 5-7 11/03/16 17:45 11/10/16 17:44 11/06/16 12:50 Al Hydroxide/Mg Hydroxide (Mylanta II) 30 ml Q6H PRN ORAL dyspepsia 11/03/16 17:45 12/03/16 17:44 Albuterol/ Ipratropium 3 ml 3 ml EVERY 4 HOURS PRN HHN Shortness of Breath 11/03/16 17:45 11/08/16 17:44 Amlodipine Besylate (Norvasc) 10 mg DAILY ORAL 11/04/16 09:00 12/04/16 08:59 11/06/16 09:16 Benazepril HCl (Lotensin) 10 mg DAILY ORAL 11/04/16 09:00 12/04/16 08:59 11/06/16 09:17 Carvedilol (Coreg) 3.125 mg BID ORAL 11/03/16 21:00 12/03/16 20:59 11/06/16 17:34 Cefepime HCl/ Dextrose (Maxipime/D5W) 55 ml @ 110 mls/hr EVERY 12 HOURS IV 11/03/16 21:00 11/10/16 20:59 11/06/16 09:15 Celecoxib (CeleBREX) 200 mg DAILY ORAL 11/04/16 09:00 12/04/16 08:59 11/06/16 09:16 Dextrose (Dextrose 50%) STAT PRN IV Hypoglycemia 11/03/16 17:45 12/03/16 17:44 Heparin Sodium (Porcine) (Heparin 5000 units/ml) 5,000 units EVERY 12 HOURS SUBQ 11/03/16 21:00 12/03/16 20:59 11/06/16 09:22 Insulin Aspart (NovoLOG) BEFORE MEALS AND HS SUBQ 11/03/16 21:00 12/03/16 20:59 11/06/16 16:39 Magnesium Hydroxide (Mom) 30 ml DAILY PRN ORAL Constipation 11/04/16 09:00 12/04/16 08:59 11/06/16 06:51 Nitroglycerin (Ntg) 0.4 mg Q5M PRN SL Prn Chest Pain 11/03/16 17:45 12/03/16 17:44 Ondansetron HCl (Zofran) 4 mg Q6H PRN IVP Nausea & Vomiting 11/03/16 17:45 12/03/16 17:44 11/06/16 16:35 Oxycodone HCl (OxyCONTIN) 20 mg EVERY 12 HOURS ORAL 11/03/16 21:00 11/10/16 20:59 11/05/16 09:35 Polyethylene Glycol (Miralax) 17 gm DAILYPRN PRN ORAL Constipation 11/03/16 17:45 12/03/16 17:44 Promethazine HCl/ Codeine (Phenergan with Codeine) 5 ml Q4H PRN ORAL For Cough 11/03/16 17:45 12/03/16 17:44 Temazepam (Restoril) 15 mg HSPRN PRN ORAL Insomnia 11/03/16 17:45 11/10/16 17:44 Allergies: Coded Allergies: No Known Allergies (Unverified , 05/11/16) ROS Limited/Unobtainable: No Constitutional: Reports: no symptoms HEENT: Reports: no symptoms Cardiovascular: Reports: no symptoms Respiratory: Reports: no symptoms Gastrointestinal/Abdominal: Reports: abdominal pain Genitourinary: Reports: no symptoms Neurologic/Psychiatric: Reports: no symptoms Subjective 61 YO F admitted with abdominal pain. Now UTI and sepsis. Cover for Int Med- Dr Cintron. Objective Last Vital Signs Date Time Temp Pulse Resp B/P Pulse Ox O2 Delivery O2 Flow Rate FiO2 11/06/16 17:34 66 130/78 11/06/16 16:02 97.7 19 97 Room Air Laboratory Tests Test 11/06/16 05:10 White Blood Count 9.2 K/UL (4.8-10.8) Red Blood Count 5.57 M/UL (4.20-5.40) H Hemoglobin 12.7 G/DL (12.0-16.0) Hematocrit 42.0 % (37.0-47.0) Mean Corpuscular Volume 76 FL (80-99) L Mean Corpuscular Hemoglobin 22.9 PG (27.0-31.0) L Mean Corpuscular Hemoglobin Concent 30.3 G/DL (32.0-36.0) L Red Cell Distribution Width 15.4 % (11.6-14.8) H Platelet Count 334 K/UL (150-450) Mean Platelet Volume 7.6 FL (6.5-10.1) Neutrophils (%) (Auto) 68.2 % (45.0-75.0) Lymphocytes (%) (Auto) 18.8 % (20.0-45.0) L Monocytes (%) (Auto) 12.1 % (1.0-10.0) H Eosinophils (%) (Auto) 0.5 % (0.0-3.0) Basophils (%) (Auto) 0.4 % (0.0-2.0) Sodium Level 134 mEQ/L (135-145) L Potassium Level 4.1 mEQ/L (3.4-4.9) Chloride Level 95 mEQ/L (98-107) L Carbon Dioxide Level 21 mEQ/L (20-30) Anion Gap 18 (5-15) H Blood Urea Nitrogen 12 mg/dL (7-23) Creatinine 0.7 mg/dL (0.5-0.9) Estimat Glomerular Filtration Rate > 60 mL/min (>60) Glucose Level 185 mg/dL (74-106) H Calcium Level 9.4 mg/dL (8.6-10.2) Intake and Output 11/05/16 11/06/16 19:00 07:00 Intake Total 845 ml 240 ml Balance 845 ml 240 ml Intake Oral 790 ml 240 ml IV Total 55 ml # Voids 1 2 Objective General: alert, cooperative, no distress, appears stated age Head: normocephalic, without obvious abnormality, atraumatic Eyes: conjunctivae/corneas clear. PERRL, EOM's intact Throat: lips, mucosa, and tongue normal. MMM Neck: supple, symmetrical, trachea midline, and no JVD Lungs: clear to auscultation bilaterally Heart: regular rate and rhythm, S1, S2 normal, no murmur, click, rub or gallop Abdomen: soft, tender to palp vlad lower quad, non-distended, bowel sounds normal ; no masses or organomegaly Extremities: extremities normal, atraumatic, no cyanosis or edema Pulses: 2+ and symmetric Skin: skin color, texture, turgor normal; no rashes or lesions Neurologic: grossly normal, no focal deficits Assessment/Plan Problem List: (1) Sepsis Assessment & Plan: E. Coli from urine. Cont cefepime; see Inf Dis recs. (2) Diabetes mellitus type II, uncontrolled Assessment & Plan: Cont novolog sliding scale. (3) HTN (hypertension) Assessment & Plan: Cont norvasc, lisinorpil and coreg. (4) Cerebral vascular disease (5) UTI (urinary tract infection) Assessment & Plan: E. Coli. Cont cefepime per ID. (6) Leukocytosis Status: not improved TIA MON Nov 06, 2016 18:09
[2016-11-06 20:13] VITALS: BP 143/79
--- NOTE | 2016-11-06 23:01 | Pulmonology Progress Note ---
Assessment/Plan Problems: (1) Sepsis (2) Gram-negative bacteremia (3) Diabetes mellitus type II, uncontrolled (4) HTN (hypertension) Assessment/Plan IV antibioitcs check cultures pain management monitor BP, titrate meds sliding scale dvt prophylaxis Subjective ROS Limited/Unobtainable: No Interval Events: late note for 11/05 pt is c/o lower back pain Allergies: Coded Allergies: No Known Allergies (Unverified , 05/11/16) Objective Last 24 Hour Vital Signs Date Time Temp Pulse Resp B/P Pulse Ox O2 Delivery O2 Flow Rate FiO2 11/06/16 20:13 98.2 71 20 143/79 98 Room Air 11/06/16 20:08 72 18 98 Room Air 11/06/16 20:07 72 16 98 Room Air 11/06/16 17:34 66 130/78 11/06/16 16:02 97.7 66 19 130/78 97 Room Air 11/06/16 13:49 98.1 11/06/16 12:54 70 18 98 Room Air 11/06/16 12:51 73 16 98 Room Air 11/06/16 12:00 98.1 71 19 144/81 98 Room Air 11/06/16 09:18 74 140/85 11/06/16 09:17 140/85 11/06/16 09:16 74 140/85 11/06/16 07:57 98.4 74 20 140/88 99 Room Air 11/06/16 06:58 75 16 98 Room Air 11/06/16 06:03 72 18 98 Room Air 11/06/16 04:00 99.1 77 18 134/77 97 11/06/16 01:40 70 18 98 Room Air 11/06/16 01:35 70 16 98 Room Air Intake and Output 11/05/16 11/06/16 19:00 07:00 Intake Total 845 ml 240 ml Balance 845 ml 240 ml Intake Oral 790 ml 240 ml IV Total 55 ml # Voids 1 2 General Appearance: WD/WN HEENT: normocephalic Respiratory/Chest: chest wall non-tender, lungs clear, normal breath sounds Cardiovascular: normal peripheral pulses, normal rate, regular rhythm Abdomen: normal bowel sounds, soft, non tender, no organomegaly, non distended Extremities: no cyanosis, no clubbing Skin: no rash, no lesions 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 Laboratory Tests 11/06/16 05:10: White Blood Count 9.2, Red Blood Count 5.57H, Hemoglobin 12.7, Hematocrit 42.0, Mean Corpuscular Volume 76L, Mean Corpuscular Hemoglobin 22.9L, Mean Corpuscular Hemoglobin Concent 30.3L, Red Cell Distribution Width 15.4H, Platelet Count 334, Mean Platelet Volume 7.6, Neutrophils (%) (Auto) 68.2, Lymphocytes (%) (Auto) 18.8L, Monocytes (%) (Auto) 12.1H, Eosinophils (%) (Auto ) 0.5, Basophils (%) (Auto) 0.4, Sodium Level 134L, Potassium Level 4.1, Chloride Level 95L, Carbon Dioxide Level 21, Anion Gap 18H, Blood Urea Nitrogen 12, Creatinine 0.7, Estimat Glomerular Filtration Rate > 60, Glucose Level 185H , Calcium Level 9.4 Current Medications Medications (Trade) Dose Ordered Sig/Jim Route PRN Reason Start Time Stop Time Status Last Admin Dose Admin Acetaminophen (Tylenol) 650 mg Q4H PRN ORAL fever 11/03/16 17:45 12/03/16 17:44 Acetaminophen/ Hydrocodone Bitart ([place] 10/325) 1 ea PRN PRN ORAL For Pain 5-7 11/03/16 17:45 11/10/16 17:44 11/06/16 12:50 Al Hydroxide/Mg Hydroxide (Mylanta II) 30 ml Q6H PRN ORAL dyspepsia 11/03/16 17:45 12/03/16 17:44 Albuterol/ Ipratropium 3 ml 3 ml EVERY 4 HOURS PRN HHN Shortness of Breath 11/03/16 17:45 11/08/16 17:44 Amlodipine Besylate (Norvasc) 10 mg DAILY ORAL 11/04/16 09:00 12/04/16 08:59 11/06/16 09:16 Benazepril HCl (Lotensin) 10 mg DAILY ORAL 11/04/16 09:00 12/04/16 08:59 11/06/16 09:17 Carvedilol (Coreg) 3.125 mg BID ORAL 11/03/16 21:00 12/03/16 20:59 11/06/16 17:34 Cefepime HCl/ Dextrose (Maxipime/D5W) 55 ml @ 110 mls/hr EVERY 12 HOURS IV 11/03/16 21:00 11/10/16 20:59 11/06/16 20:13 Celecoxib (CeleBREX) 200 mg DAILY ORAL 11/04/16 09:00 12/04/16 08:59 11/06/16 09:16 Dextrose (Dextrose 50%) STAT PRN IV Hypoglycemia 11/03/16 17:45 12/03/16 17:44 Heparin Sodium (Porcine) (Heparin 5000 units/ml) 5,000 units EVERY 12 HOURS SUBQ 11/03/16 21:00 12/03/16 20:59 11/06/16 20:13 Insulin Aspart (NovoLOG) BEFORE MEALS AND HS SUBQ 11/03/16 21:00 12/03/16 20:59 11/06/16 20:12 Magnesium Hydroxide (Mom) 30 ml DAILY PRN ORAL Constipation 11/04/16 09:00 12/04/16 08:59 11/06/16 20:23 Nitroglycerin (Ntg) 0.4 mg Q5M PRN SL Prn Chest Pain 11/03/16 17:45 12/03/16 17:44 Ondansetron HCl (Zofran) 4 mg Q6H PRN IVP Nausea & Vomiting 11/03/16 17:45 12/03/16 17:44 11/06/16 16:35 Oxycodone HCl (OxyCONTIN) 20 mg EVERY 12 HOURS ORAL 11/03/16 21:00 11/10/16 20:59 11/05/16 09:35 Polyethylene Glycol (Miralax) 17 gm DAILYPRN PRN ORAL Constipation 11/03/16 17:45 12/03/16 17:44 Promethazine HCl/ Codeine (Phenergan with Codeine) 5 ml Q4H PRN ORAL For Cough 11/03/16 17:45 12/03/16 17:44 Temazepam (Restoril) 15 mg HSPRN PRN ORAL Insomnia 11/03/16 17:45 11/10/16 17:44 LATANYA KNIGHT Nov 06, 2016 23:01
--- NOTE | 2016-11-06 23:02 | Pulmonology Progress Note ---
Assessment/Plan Problems: (1) Sepsis (2) Gram-negative bacteremia (3) Diabetes mellitus type II, uncontrolled (4) HTN (hypertension) Assessment/Plan IV antibioitcs, f/u by ID check cultures pain management monitor BP, titrate meds sliding scale dvt prophylaxis Subjective ROS Limited/Unobtainable: No Interval Events: no new complains Allergies: Coded Allergies: No Known Allergies (Unverified , 05/11/16) Objective Last 24 Hour Vital Signs Date Time Temp Pulse Resp B/P Pulse Ox O2 Delivery O2 Flow Rate FiO2 11/06/16 20:13 98.2 71 20 143/79 98 Room Air 11/06/16 20:08 72 18 98 Room Air 11/06/16 20:07 72 16 98 Room Air 11/06/16 17:34 66 130/78 11/06/16 16:02 97.7 66 19 130/78 97 Room Air 11/06/16 13:49 98.1 11/06/16 12:54 70 18 98 Room Air 11/06/16 12:51 73 16 98 Room Air 11/06/16 12:00 98.1 71 19 144/81 98 Room Air 11/06/16 09:18 74 140/85 11/06/16 09:17 140/85 11/06/16 09:16 74 140/85 11/06/16 07:57 98.4 74 20 140/88 99 Room Air 11/06/16 06:58 75 16 98 Room Air 11/06/16 06:03 72 18 98 Room Air 11/06/16 04:00 99.1 77 18 134/77 97 11/06/16 01:40 70 18 98 Room Air 11/06/16 01:35 70 16 98 Room Air Intake and Output 11/05/16 11/06/16 19:00 07:00 Intake Total 845 ml 240 ml Balance 845 ml 240 ml Intake Oral 790 ml 240 ml IV Total 55 ml # Voids 1 2 Objective General Appearance: WD/WN HEENT: normocephalic Respiratory/Chest: chest wall non-tender, lungs clear, normal breath sounds Cardiovascular: normal peripheral pulses, normal rate, regular rhythm Abdomen: normal bowel sounds, soft, non tender, no organomegaly, non distended Extremities: no cyanosis, no clubbing Skin: no rash, no lesions 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 Laboratory Tests 11/06/16 05:10: White Blood Count 9.2, Red Blood Count 5.57H, Hemoglobin 12.7, Hematocrit 42.0, Mean Corpuscular Volume 76L, Mean Corpuscular Hemoglobin 22.9L, Mean Corpuscular Hemoglobin Concent 30.3L, Red Cell Distribution Width 15.4H, Platelet Count 334, Mean Platelet Volume 7.6, Neutrophils (%) (Auto) 68.2, Lymphocytes (%) (Auto) 18.8L, Monocytes (%) (Auto) 12.1H, Eosinophils (%) (Auto ) 0.5, Basophils (%) (Auto) 0.4, Sodium Level 134L, Potassium Level 4.1, Chloride Level 95L, Carbon Dioxide Level 21, Anion Gap 18H, Blood Urea Nitrogen 12, Creatinine 0.7, Estimat Glomerular Filtration Rate > 60, Glucose Level 185H , Calcium Level 9.4 Current Medications Medications (Trade) Dose Ordered Sig/Jim Route PRN Reason Start Time Stop Time Status Last Admin Dose Admin Acetaminophen (Tylenol) 650 mg Q4H PRN ORAL fever 11/03/16 17:45 12/03/16 17:44 Acetaminophen/ Hydrocodone Bitart ([place] 10/325) 1 ea PRN PRN ORAL For Pain 5-7 11/03/16 17:45 11/10/16 17:44 11/06/16 12:50 Al Hydroxide/Mg Hydroxide (Mylanta II) 30 ml Q6H PRN ORAL dyspepsia 11/03/16 17:45 12/03/16 17:44 Albuterol/ Ipratropium 3 ml 3 ml EVERY 4 HOURS PRN HHN Shortness of Breath 11/03/16 17:45 11/08/16 17:44 Amlodipine Besylate (Norvasc) 10 mg DAILY ORAL 11/04/16 09:00 12/04/16 08:59 11/06/16 09:16 Benazepril HCl (Lotensin) 10 mg DAILY ORAL 11/04/16 09:00 12/04/16 08:59 11/06/16 09:17 Carvedilol (Coreg) 3.125 mg BID ORAL 11/03/16 21:00 12/03/16 20:59 11/06/16 17:34 Cefepime HCl/ Dextrose (Maxipime/D5W) 55 ml @ 110 mls/hr EVERY 12 HOURS IV 11/03/16 21:00 11/10/16 20:59 11/06/16 20:13 Celecoxib (CeleBREX) 200 mg DAILY ORAL 11/04/16 09:00 12/04/16 08:59 11/06/16 09:16 Dextrose (Dextrose 50%) STAT PRN IV Hypoglycemia 11/03/16 17:45 12/03/16 17:44 Heparin Sodium (Porcine) (Heparin 5000 units/ml) 5,000 units EVERY 12 HOURS SUBQ 11/03/16 21:00 12/03/16 20:59 11/06/16 20:13 Insulin Aspart (NovoLOG) BEFORE MEALS AND HS SUBQ 11/03/16 21:00 12/03/16 20:59 11/06/16 20:12 Magnesium Hydroxide (Mom) 30 ml DAILY PRN ORAL Constipation 11/04/16 09:00 12/04/16 08:59 11/06/16 20:23 Nitroglycerin (Ntg) 0.4 mg Q5M PRN SL Prn Chest Pain 11/03/16 17:45 12/03/16 17:44 Ondansetron HCl (Zofran) 4 mg Q6H PRN IVP Nausea & Vomiting 11/03/16 17:45 12/03/16 17:44 11/06/16 16:35 Oxycodone HCl (OxyCONTIN) 20 mg EVERY 12 HOURS ORAL 11/03/16 21:00 11/10/16 20:59 11/05/16 09:35 Polyethylene Glycol (Miralax) 17 gm DAILYPRN PRN ORAL Constipation 11/03/16 17:45 12/03/16 17:44 Promethazine HCl/ Codeine (Phenergan with Codeine) 5 ml Q4H PRN ORAL For Cough 11/03/16 17:45 12/03/16 17:44 Temazepam (Restoril) 15 mg HSPRN PRN ORAL Insomnia 11/03/16 17:45 11/10/16 17:44 LATANYA KNIGHT Nov 06, 2016 23:02
[2016-11-07 04:00] VITALS: BP 133/86
[2016-11-07] MEDS: NovoLOG Insulin Flexpen SUBQ SCH ×4 (06:00→21:08)
[2016-11-07 07:36] LABS: BASOPHILS % (AUTO) 0.8 % (0.0-2.0); EOSINOPHILS % (AUTO) 0.9 % (0.0-3.0); LYMPHOCYTES % (AUTO) 33.8 % (20.0-45.0); MEAN CORPUSCULAR HGB CONC 30.5 G/DL (32.0-36.0); MEAN CORPUSCULAR VOLUME 75 FL (80-99); MEAN PLATELET VOLUME 7.4 FL (6.5-10.1); MONOCYTES % (AUTO) 14.2 % (1.0-10.0); NEUTROPHILS % (AUTO) 50.3 % (45.0-75.0); PLATELET COUNT 331 K/UL (150-450); RED BLOOD COUNT 5.42 M/UL (4.20-5.40); RED CELL DISTRIBUTION WIDTH 15.7 % (11.6-14.8); WHITE BLOOD COUNT 8.2 K/UL (4.8-10.8)
[2016-11-07 07:52] LABS: ANION GAP 16 (5-15); CALCIUM 9.3 mg/dL (8.6-10.2); CARBON DIOXIDE 24 mEQ/L (20-30); CHLORIDE 96 mEQ/L (98-107); CREATININE 0.7 mg/dL (0.5-0.9); GLOMERULAR FILTRATION RATE > 60 mL/min (>60); HEMOLYSIS 0; SODIUM 136 mEQ/L (135-145)
[2016-11-07 08:00] VITALS: BP 144/77
[2016-11-07] MEDS: oxyCONTIN 20mg tab ORAL SCH ×2 (09:00→21:00)
--- NOTE | 2016-11-07 09:42 | Diagnostic Imaging Report ---
Indications: Abdominal pain, hypertension Technique: Transabdominal real-time grayscale and duplex Doppler imaging of the kidneys, retroperitoneum, and urinary bladder was performed Findings: Comparison: None Right kidney measures 11.6 cm in length. Normal contour, echotexture, cortical thickness. No stones, other focal lesions, hydronephrosis, or obvious perinephric abnormalities. Left kidney measures 13.2 cm in length. Normal contour, echotexture, cortical thickness. No stones, other focal lesions, hydronephrosis, or obvious perinephric abnormalities. The intrahepatic portion of inferior vena cava is patent and normal caliber. The urinary bladder is distended without obvious abnormality. IMPRESSION: Negative bilateral renal/retroperitoneal ultrasound
[2016-11-07] MEDS: Benazepril 10mg tab ORAL SCH (09:59)
[2016-11-07] MEDS: celeBREX 200mg Cap **SURGERY PATIENTS ONLY ORAL SCH (10:00)
[2016-11-07] MEDS: Heparin 5000 units/ml inj SUBQ SCH ×2 (10:01→21:08)
[2016-11-07] MEDS: Cefepime HCl 1 GM in D5W 55 ML IV SCH ×2 (10:02→21:06)
--- NOTE | 2016-11-07 10:21 | Infectious Diseases Prog Note ---
Assessment/Plan Assessment/Plan :A Sepsis , SP Bacteremia EColi UTI Ecoli DM HTN Plan: cont pt on IV Cefepime d# 4 /14 , upon DC will change to Keflex 500 q6h to complete the course Monitor CBC pain management monitor BP, titrate meds sliding scale dvt prophylaxis Subjective Constitutional: Denies: anorexia, chills, drenching sweats, fatigue, fever, no symptoms, other Allergies: Coded Allergies: No Known Allergies (Unverified , 05/11/16) Objective Vital Signs Last 24 Hour Vital Signs Date Time Temp Pulse Resp B/P Pulse Ox O2 Delivery O2 Flow Rate FiO2 11/07/16 08:00 98.4 62 20 144/77 98 Room Air 11/07/16 07:20 88 18 99 Room Air 11/07/16 07:15 86 18 99 Room Air 11/07/16 04:00 97.0 65 20 133/86 98 Room Air 11/07/16 01:23 75 16 98 Room Air 11/07/16 01:23 73 18 98 Room Air 11/06/16 20:13 98.2 71 20 143/79 98 Room Air 11/06/16 20:08 72 18 98 Room Air 11/06/16 20:07 72 16 98 Room Air 11/06/16 17:34 66 130/78 11/06/16 16:02 97.7 66 19 130/78 97 Room Air 11/06/16 13:49 98.1 11/06/16 12:54 70 18 98 Room Air 11/06/16 12:51 73 16 98 Room Air 11/06/16 12:00 98.1 71 19 144/81 98 Room Air Height (Feet): 5 Height (Inches): 7.00 Weight (Pounds): 170 HEENT: anicteric Respiratory/Chest: lungs clear Cardiovascular: regularly irregular Abdomen: soft, non tender Laboratory Tests Test 11/07/16 06:20 White Blood Count 8.2 K/UL (4.8-10.8) Red Blood Count 5.42 M/UL (4.20-5.40) H Hemoglobin 12.4 G/DL (12.0-16.0) Hematocrit 40.8 % (37.0-47.0) Mean Corpuscular Volume 75 FL (80-99) L Mean Corpuscular Hemoglobin 23.0 PG (27.0-31.0) L Mean Corpuscular Hemoglobin Concent 30.5 G/DL (32.0-36.0) L Red Cell Distribution Width 15.7 % (11.6-14.8) H Platelet Count 331 K/UL (150-450) Mean Platelet Volume 7.4 FL (6.5-10.1) Neutrophils (%) (Auto) 50.3 % (45.0-75.0) Lymphocytes (%) (Auto) 33.8 % (20.0-45.0) Monocytes (%) (Auto) 14.2 % (1.0-10.0) H Eosinophils (%) (Auto) 0.9 % (0.0-3.0) Basophils (%) (Auto) 0.8 % (0.0-2.0) Sodium Level 136 mEQ/L (135-145) Potassium Level 4.0 mEQ/L (3.4-4.9) Chloride Level 96 mEQ/L (98-107) L Carbon Dioxide Level 24 mEQ/L (20-30) Anion Gap 16 (5-15) H Blood Urea Nitrogen 13 mg/dL (7-23) Creatinine 0.7 mg/dL (0.5-0.9) Estimat Glomerular Filtration Rate > 60 mL/min (>60) Glucose Level 181 mg/dL (74-106) H Calcium Level 9.3 mg/dL (8.6-10.2) Current Medications Medications (Trade) Dose Ordered Sig/Jim Route PRN Reason Start Time Stop Time Status Last Admin Dose Admin Acetaminophen (Tylenol) 650 mg Q4H PRN ORAL fever 11/03/16 17:45 12/03/16 17:44 Acetaminophen/ Hydrocodone Bitart ([place] 10/325) 1 ea PRN PRN ORAL For Pain 5-7 11/03/16 17:45 11/10/16 17:44 11/06/16 12:50 Al Hydroxide/Mg Hydroxide (Mylanta II) 30 ml Q6H PRN ORAL dyspepsia 11/03/16 17:45 12/03/16 17:44 Albuterol/ Ipratropium 3 ml 3 ml EVERY 4 HOURS PRN HHN Shortness of Breath 11/03/16 17:45 11/08/16 17:44 Amlodipine Besylate (Norvasc) 10 mg DAILY ORAL 11/04/16 09:00 12/04/16 08:59 11/06/16 09:16 Benazepril HCl (Lotensin) 10 mg DAILY ORAL 11/04/16 09:00 12/04/16 08:59 11/06/16 09:17 Carvedilol (Coreg) 3.125 mg BID ORAL 11/03/16 21:00 12/03/16 20:59 11/06/16 17:34 Cefepime HCl/ Dextrose (Maxipime/D5W) 55 ml @ 110 mls/hr EVERY 12 HOURS IV 11/03/16 21:00 11/10/16 20:59 11/06/16 20:13 Celecoxib (CeleBREX) 200 mg DAILY ORAL 11/04/16 09:00 12/04/16 08:59 11/06/16 09:16 Dextrose (Dextrose 50%) STAT PRN IV Hypoglycemia 11/03/16 17:45 12/03/16 17:44 Heparin Sodium (Porcine) (Heparin 5000 units/ml) 5,000 units EVERY 12 HOURS SUBQ 11/03/16 21:00 12/03/16 20:59 11/06/16 20:13 Insulin Aspart (NovoLOG) BEFORE MEALS AND HS SUBQ 11/03/16 21:00 12/03/16 20:59 11/07/16 06:00 Magnesium Hydroxide (Mom) 30 ml DAILY PRN ORAL Constipation 11/04/16 09:00 12/04/16 08:59 11/06/16 20:23 Nitroglycerin (Ntg) 0.4 mg Q5M PRN SL Prn Chest Pain 11/03/16 17:45 12/03/16 17:44 Ondansetron HCl (Zofran) 4 mg Q6H PRN IVP Nausea & Vomiting 11/03/16 17:45 12/03/16 17:44 11/06/16 16:35 Oxycodone HCl (OxyCONTIN) 20 mg EVERY 12 HOURS ORAL 11/03/16 21:00 11/10/16 20:59 11/05/16 09:35 Polyethylene Glycol (Miralax) 17 gm DAILYPRN PRN ORAL Constipation 11/03/16 17:45 12/03/16 17:44 Promethazine HCl/ Codeine (Phenergan with Codeine) 5 ml Q4H PRN ORAL For Cough 11/03/16 17:45 12/03/16 17:44 Temazepam (Restoril) 15 mg HSPRN PRN ORAL Insomnia 11/03/16 17:45 11/10/16 17:44 CRISTY NELSON M.D. Nov 07, 2016 10:21
[2016-11-07 12:00] VITALS: BP 144/71
--- NOTE | 2016-11-07 14:08 | Consultation ---
DATE OF CONSULTATION: INFECTIOUS DISEASE CONSULTATION CONSULTING PHYSICIAN: Hitesh Escobar M.D. REFERRING PHYSICIAN: Heath Siddiqui M.D. REASON FOR CONSULTATION: UTI and antibiotic management. HISTORY OF PRESENT ILLNESS: The patient is a 50-year-old female with medical problems, who came to the hospital because of nausea, vomiting, and not feeling well. The patient was found to have positive urine culture and positive blood culture for gram-negative rods. The patient had a history of diarrhea 10 days ago that has been resolved over the last two days. Infectious Disease consultation requested for further evaluation of the patient's antibiotic management. PAST MEDICAL HISTORY: 1. History of bilateral knee surgery. 2. History of CVA. 3. Hypertension. 4. Osteoarthritis. 5. Diabetes. MEDICATIONS: IV cefepime. ALLERGIES: No known drug allergies. SOCIAL HISTORY: Negative for alcohol, drug abuse, or smoking. FAMILY HISTORY: Not contributory. REVIEW OF SYSTEMS: A 10-point review was done and except what is mentioned has been negative. PHYSICAL EXAMINATION: VITAL SIGNS: Temperature 98 degrees, blood pressure 159/70, pulse 56, respiratory rate 18. HEENT: Mild pale conjunctivae. No icterus. NECK: No lymphadenopathy. CHEST: Coarse breathing sounds. HEART: S1 and S2. ABDOMEN: Soft. The patient has bilateral flank tenderness. EXTREMITIES: No cyanosis or edema. NEUROLOGIC: Awake and alert. LABORATORY DATA: WBC 20.9, hemoglobin 11.8, and platelets 319. UA shows 20 to 30 white blood cells. Urine Legionella antigen is negative. Blood cultures growing gram negative rods. Urine culture is growing gram-negative rods. Chest x-ray shows subsegmental atelectasis obscuring the left lung base. ASSESSMENT: The patient is a 61-year-old female, who came to the hospital. The patient was found to have gram-negative bacteremia, most likely source is urinary tract infection. There is obstructive uropathy. PLAN: 1. We will continue the patient on IV cefepime. 2. Monitor CBC. 3. Monitor BMP. 4. Monitor cultures (blood and urine). 5. Ultrasound of the abdomen. 6. Ultrasound of kidneys for further evaluation of urinary tract with obstruction. 7. Monitor the patient's labs, CBC and BMP. Based on those, we will do further recommendation. Thank you for this consultation. I will follow the patient during this admission. Hitesh Escobar M.D. DR: GUERRERO JOB#: [id number] CC:
--- NOTE | 2016-11-07 14:17 | Diagnostic Imaging Report ---
Indication: Abnormal alkaline phosphatase Technique: Cassidy-scale and duplex images of the upper abdomen were obtained Comparison: Reference made to renal ultrasound 11/04/2016 Findings: . Gallbladder is unremarkable, without stones, wall thickening, nor pericholecystic fluid. Common bile duct measures 6 mm in diameter. No intrahepatic biliary ductal dilatation. Liver demonstrates normal echogenicity. Calcifications are seen in the right lobe. Portal vein and hepatic veins are patent.. Pancreas is unremarkable. Spleen is unremarkable. Left kidney measures 12.2 cm in length. Right kidney measures 12.1 cm length. Both kidneys demonstrate normal echogenicity. There is no hydronephrosis. No focal abnormality. . Non-aneurysmal abdominal aorta. Impression: Negative for gallstones or dilated ducts or other significant abnormality Incidental finding of calcifications within the right hepatic lobe
[2016-11-07 16:00] VITALS: BP 130/79
[2016-11-07 20:00] VITALS: BP 148/82
--- NOTE | 2016-11-07 20:02 | Internal Med Progress Note ---
Subjective Date of Service: Nov 07, 2016 Physician Name Tia Mon Attending Physician Luis Fernando Cintron MD Current Medications Medications (Trade) Dose Ordered Sig/Jim Route PRN Reason Start Time Stop Time Status Last Admin Dose Admin Acetaminophen (Tylenol) 650 mg Q4H PRN ORAL fever 11/03/16 17:45 12/03/16 17:44 Acetaminophen/ Hydrocodone Bitart ([place] 10/325) 1 ea PRN PRN ORAL For Pain 5-7 11/03/16 17:45 11/10/16 17:44 11/06/16 12:50 Al Hydroxide/Mg Hydroxide (Mylanta II) 30 ml Q6H PRN ORAL dyspepsia 11/03/16 17:45 12/03/16 17:44 Albuterol/ Ipratropium 3 ml 3 ml EVERY 4 HOURS PRN HHN Shortness of Breath 11/03/16 17:45 11/08/16 17:44 Amlodipine Besylate (Norvasc) 10 mg DAILY ORAL 11/04/16 09:00 12/04/16 08:59 11/07/16 09:58 Benazepril HCl (Lotensin) 10 mg DAILY ORAL 11/04/16 09:00 12/04/16 08:59 11/07/16 09:59 Carvedilol (Coreg) 3.125 mg BID ORAL 11/03/16 21:00 12/03/16 20:59 11/07/16 17:49 Cefepime HCl/ Dextrose (Maxipime/D5W) 55 ml @ 110 mls/hr EVERY 12 HOURS IV 11/03/16 21:00 11/10/16 20:59 11/07/16 10:02 Celecoxib (CeleBREX) 200 mg DAILY ORAL 11/04/16 09:00 12/04/16 08:59 11/07/16 10:00 Dextrose (Dextrose 50%) STAT PRN IV Hypoglycemia 11/03/16 17:45 12/03/16 17:44 Heparin Sodium (Porcine) (Heparin 5000 units/ml) 5,000 units EVERY 12 HOURS SUBQ 11/03/16 21:00 12/03/16 20:59 11/07/16 10:01 Insulin Aspart (NovoLOG) BEFORE MEALS AND HS SUBQ 11/03/16 21:00 12/03/16 20:59 11/07/16 17:55 Magnesium Hydroxide (Mom) 30 ml DAILY PRN ORAL Constipation 11/04/16 09:00 12/04/16 08:59 11/06/16 20:23 Nitroglycerin (Ntg) 0.4 mg Q5M PRN SL Prn Chest Pain 11/03/16 17:45 12/03/16 17:44 Ondansetron HCl (Zofran) 4 mg Q6H PRN IVP Nausea & Vomiting 11/03/16 17:45 12/03/16 17:44 11/06/16 16:35 Oxycodone HCl (OxyCONTIN) 20 mg EVERY 12 HOURS ORAL 11/03/16 21:00 11/10/16 20:59 11/05/16 09:35 Polyethylene Glycol (Miralax) 17 gm DAILYPRN PRN ORAL Constipation 11/03/16 17:45 12/03/16 17:44 Promethazine HCl/ Codeine (Phenergan with Codeine) 5 ml Q4H PRN ORAL For Cough 11/03/16 17:45 12/03/16 17:44 Temazepam (Restoril) 15 mg HSPRN PRN ORAL Insomnia 11/03/16 17:45 11/10/16 17:44 Allergies: Coded Allergies: No Known Allergies (Unverified , 05/11/16) ROS Limited/Unobtainable: No Constitutional: Reports: no symptoms HEENT: Reports: no symptoms Cardiovascular: Reports: no symptoms Respiratory: Reports: no symptoms Gastrointestinal/Abdominal: Reports: no symptoms Genitourinary: Reports: no symptoms Neurologic/Psychiatric: Reports: no symptoms Subjective 61 YO F admitted with abdominal pain. Now UTI and sepsis. Cover for Int [facility]- Dr Cintron. Objective Last Vital Signs Date Time Temp Pulse Resp B/P Pulse Ox O2 Delivery O2 Flow Rate FiO2 11/07/16 17:49 66 130/79 11/07/16 16:00 98.6 20 97 Room Air Laboratory Tests Test 11/07/16 06:20 White Blood Count 8.2 K/UL (4.8-10.8) Red Blood Count 5.42 M/UL (4.20-5.40) H Hemoglobin 12.4 G/DL (12.0-16.0) Hematocrit 40.8 % (37.0-47.0) Mean Corpuscular Volume 75 FL (80-99) L Mean Corpuscular Hemoglobin 23.0 PG (27.0-31.0) L Mean Corpuscular Hemoglobin Concent 30.5 G/DL (32.0-36.0) L Red Cell Distribution Width 15.7 % (11.6-14.8) H Platelet Count 331 K/UL (150-450) Mean Platelet Volume 7.4 FL (6.5-10.1) Neutrophils (%) (Auto) 50.3 % (45.0-75.0) Lymphocytes (%) (Auto) 33.8 % (20.0-45.0) Monocytes (%) (Auto) 14.2 % (1.0-10.0) H Eosinophils (%) (Auto) 0.9 % (0.0-3.0) Basophils (%) (Auto) 0.8 % (0.0-2.0) Sodium Level 136 mEQ/L (135-145) Potassium Level 4.0 mEQ/L (3.4-4.9) Chloride Level 96 mEQ/L (98-107) L Carbon Dioxide Level 24 mEQ/L (20-30) Anion Gap 16 (5-15) H Blood Urea Nitrogen 13 mg/dL (7-23) Creatinine 0.7 mg/dL (0.5-0.9) Estimat Glomerular Filtration Rate > 60 mL/min (>60) Glucose Level 181 mg/dL (74-106) H Calcium Level 9.3 mg/dL (8.6-10.2) Intake and Output 11/06/16 11/07/16 19:00 07:00 Intake Total 1015 ml Balance 1015 ml Intake Oral 960 ml IV Total 55 ml # Voids 2 Objective General: alert, cooperative, no distress, appears stated age Head: normocephalic, without obvious abnormality, atraumatic Eyes: conjunctivae/corneas clear. PERRL, EOM's intact Throat: lips, mucosa, and tongue normal. MMM Neck: supple, symmetrical, trachea midline, and no JVD Lungs: clear to auscultation bilaterally Heart: regular rate and rhythm, S1, S2 normal, no murmur, click, rub or gallop Abdomen: soft, tender to palp vlad lower quad, non-distended, bowel sounds normal ; no masses or organomegaly Extremities: extremities normal, atraumatic, no cyanosis or edema Pulses: 2+ and symmetric Skin: skin color, texture, turgor normal; no rashes or lesions Neurologic: grossly normal, no focal deficits Assessment/Plan Problem List: (1) Sepsis Assessment & Plan: E. Coli from urine. Cont cefepime; see Inf Dis recs. (2) Diabetes mellitus type II, uncontrolled Assessment & Plan: Cont novolog sliding scale. (3) HTN (hypertension) Assessment & Plan: Cont norvasc, lisinorpil and coreg. (4) Cerebral vascular disease (5) UTI (urinary tract infection) Assessment & Plan: E. Coli. Cont cefepime per ID. (6) Leukocytosis Status: progressing TIA MON Nov 07, 2016 20:02
[2016-11-07] MEDS: Norco 10mg/325mg tab ORAL PRN (21:15)
[2016-11-08] VITALS: BP 105/61
[2016-11-08 04:00] VITALS: BP 122/70
[2016-11-08] MEDS: NovoLOG Insulin Flexpen SUBQ SCH ×3 (06:47→16:30)
[2016-11-08 07:46] VITALS: BP 148/84
[2016-11-08] MEDS: Cefepime HCl 1 GM in D5W 55 ML IV SCH (08:22)
[2016-11-08] MEDS: Benazepril 10mg tab ORAL SCH (08:23)
[2016-11-08] MEDS: celeBREX 200mg Cap **SURGERY PATIENTS ONLY ORAL SCH (08:24)
[2016-11-08] MEDS: Heparin 5000 units/ml inj SUBQ SCH (08:30)
[2016-11-08 09:18] LABS: BASOPHILS % (AUTO) 0.9 % (0.0-2.0); EOSINOPHILS % (AUTO) 1.8 % (0.0-3.0); LYMPHOCYTES % (AUTO) 33.1 % (20.0-45.0); MEAN CORPUSCULAR HEMOGLOBIN 23.2 PG (27.0-31.0); MEAN CORPUSCULAR HGB CONC 30.4 G/DL (32.0-36.0); MEAN CORPUSCULAR VOLUME 76 FL (80-99); MEAN PLATELET VOLUME 6.9 FL (6.5-10.1); MONOCYTES % (AUTO) 10.4 % (1.0-10.0); NEUTROPHILS % (AUTO) 53.9 % (45.0-75.0); PLATELET COUNT 337 K/UL (150-450); RED BLOOD COUNT 5.33 M/UL (4.20-5.40); RED CELL DISTRIBUTION WIDTH 15.4 % (11.6-14.8); WHITE BLOOD COUNT 8.1 K/UL (4.8-10.8)
[2016-11-08 09:34] LABS: ANION GAP 14 (5-15); CALCIUM 9.4 mg/dL (8.6-10.2); CARBON DIOXIDE 26 mEQ/L (20-30); CHLORIDE 96 mEQ/L (98-107); CREATININE 0.7 mg/dL (0.5-0.9); GLOMERULAR FILTRATION RATE > 60 mL/min (>60); HEMOLYSIS 0; POTASSIUM 4.3 mEQ/L (3.4-4.9); SODIUM 136 mEQ/L (135-145)
--- NOTE | 2016-11-08 09:44 | Infectious Diseases Prog Note ---
Assessment/Plan Assessment/Plan :A Sepsis , SP Bacteremia EColi UTI Ecoli US: Negative for gallstones or dilated ducts or other significant abnormality DM HTN Plan: cont pt on IV Cefepime d# 5 / , upon DC will change to Keflex 500 q6h to complete the course ( Rx in chart ) Monitor CBC pain management monitor BP, titrate meds sliding scale dvt prophylaxis Subjective Allergies: Coded Allergies: No Known Allergies (Unverified , 05/11/16) Subjective possible DC today Objective Vital Signs Last 24 Hour Vital Signs Date Time Temp Pulse Resp B/P Pulse Ox O2 Delivery O2 Flow Rate FiO2 11/08/16 08:24 69 148/64 11/08/16 08:23 69 148/64 11/08/16 08:23 148/64 11/08/16 07:46 98.7 69 18 148/84 98 Room Air 11/08/16 07:42 94 18 99 Room Air 11/08/16 07:42 92 18 99 Room Air 11/08/16 04:00 97.5 67 18 122/70 97 Room Air 11/08/16 01:23 82 20 99 Room Air 11/08/16 01:22 72 20 98 Room Air 21 11/08/16 00:00 97.7 73 18 105/61 98 Room Air 11/07/16 20:00 96.8 69 20 148/82 100 Room Air 11/07/16 19:30 80 18 99 Room Air 11/07/16 19:30 90 18 99 Room Air 21 11/07/16 17:49 66 130/79 11/07/16 16:00 98.6 66 20 130/79 97 Room Air 11/07/16 13:25 89 18 99 Room Air 11/07/16 13:20 81 18 99 Room Air 11/07/16 12:00 97.9 69 20 144/71 98 Room Air 11/07/16 09:59 64 144/77 11/07/16 09:59 144/77 11/07/16 09:58 62 144/77 Height (Feet): 5 Height (Inches): 7.00 Weight (Pounds): 170 HEENT: atraumatic Respiratory/Chest: normal breath sounds Cardiovascular: regular rhythm Abdomen: non distended Laboratory Tests Test 11/08/16 08:50 White Blood Count 8.1 K/UL (4.8-10.8) Red Blood Count 5.33 M/UL (4.20-5.40) Hemoglobin 12.4 G/DL (12.0-16.0) Hematocrit 40.6 % (37.0-47.0) Mean Corpuscular Volume 76 FL (80-99) L Mean Corpuscular Hemoglobin 23.2 PG (27.0-31.0) L Mean Corpuscular Hemoglobin Concent 30.4 G/DL (32.0-36.0) L Red Cell Distribution Width 15.4 % (11.6-14.8) H Platelet Count 337 K/UL (150-450) Mean Platelet Volume 6.9 FL (6.5-10.1) Neutrophils (%) (Auto) 53.9 % (45.0-75.0) Lymphocytes (%) (Auto) 33.1 % (20.0-45.0) Monocytes (%) (Auto) 10.4 % (1.0-10.0) H Eosinophils (%) (Auto) 1.8 % (0.0-3.0) Basophils (%) (Auto) 0.9 % (0.0-2.0) Sodium Level 136 mEQ/L (135-145) Potassium Level 4.3 mEQ/L (3.4-4.9) Chloride Level 96 mEQ/L (98-107) L Carbon Dioxide Level 26 mEQ/L (20-30) Anion Gap 14 (5-15) Blood Urea Nitrogen 16 mg/dL (7-23) Creatinine 0.7 mg/dL (0.5-0.9) Estimat Glomerular Filtration Rate > 60 mL/min (>60) Glucose Level 334 mg/dL (74-106) #H Calcium Level 9.4 mg/dL (8.6-10.2) Current Medications Medications (Trade) Dose Ordered Sig/Jim Route PRN Reason Start Time Stop Time Status Last Admin Dose Admin Acetaminophen (Tylenol) 650 mg Q4H PRN ORAL fever 11/03/16 17:45 12/03/16 17:44 Acetaminophen/ Hydrocodone Bitart ([place] 10/325) 1 ea PRN PRN ORAL For Pain 5-7 11/03/16 17:45 11/10/16 17:44 11/07/16 21:15 Al Hydroxide/Mg Hydroxide (Mylanta II) 30 ml Q6H PRN ORAL dyspepsia 11/03/16 17:45 12/03/16 17:44 Albuterol/ Ipratropium 3 ml 3 ml EVERY 4 HOURS PRN HHN Shortness of Breath 11/03/16 17:45 11/08/16 17:44 Amlodipine Besylate (Norvasc) 10 mg DAILY ORAL 11/04/16 09:00 12/04/16 08:59 11/08/16 08:24 Benazepril HCl (Lotensin) 10 mg DAILY ORAL 11/04/16 09:00 12/04/16 08:59 11/08/16 08:23 Carvedilol (Coreg) 3.125 mg BID ORAL 11/03/16 21:00 12/03/16 20:59 11/08/16 08:23 Cefepime HCl/ Dextrose (Maxipime/D5W) 55 ml @ 110 mls/hr EVERY 12 HOURS IV 11/03/16 21:00 11/10/16 20:59 11/08/16 08:22 Celecoxib (CeleBREX) 200 mg DAILY ORAL 11/04/16 09:00 12/04/16 08:59 11/08/16 08:24 Dextrose (Dextrose 50%) STAT PRN IV Hypoglycemia 11/03/16 17:45 12/03/16 17:44 Heparin Sodium (Porcine) (Heparin 5000 units/ml) 5,000 units EVERY 12 HOURS SUBQ 11/03/16 21:00 12/03/16 20:59 11/08/16 08:30 Insulin Aspart (NovoLOG) BEFORE MEALS AND HS SUBQ 11/03/16 21:00 12/03/16 20:59 11/08/16 06:47 Magnesium Hydroxide (Mom) 30 ml DAILY PRN ORAL Constipation 11/04/16 09:00 12/04/16 08:59 11/06/16 20:23 Nitroglycerin (Ntg) 0.4 mg Q5M PRN SL Prn Chest Pain 11/03/16 17:45 12/03/16 17:44 Ondansetron HCl (Zofran) 4 mg Q6H PRN IVP Nausea & Vomiting 11/03/16 17:45 12/03/16 17:44 11/06/16 16:35 Polyethylene Glycol (Miralax) 17 gm DAILYPRN PRN ORAL Constipation 11/03/16 17:45 12/03/16 17:44 Promethazine HCl/ Codeine (Phenergan with Codeine) 5 ml Q4H PRN ORAL For Cough 11/03/16 17:45 12/03/16 17:44 Temazepam (Restoril) 15 mg HSPRN PRN ORAL Insomnia 11/03/16 17:45 11/10/16 17:44 CRISTY NELSON M.D. Nov 08, 2016 09:44
[2016-11-08 12:00] VITALS: BP 135/77
[2016-11-08] MEDS ORDERED: CEPHALEXIN500 MG ORAL (15:00)
--- NOTE | 2016-11-08 15:04 | Internal Med Progress Note ---
Subjective Physician Name Luis Fernando Cintron Attending Physician Luis Fernando Cintron MD Current Medications Medications (Trade) Dose Ordered Sig/Jim Route PRN Reason Start Time Stop Time Status Last Admin Dose Admin Acetaminophen (Tylenol) 650 mg Q4H PRN ORAL fever 11/03/16 17:45 12/03/16 17:44 Acetaminophen/ Hydrocodone Bitart ([place] 10/325) 1 ea PRN PRN ORAL For Pain 5-7 11/03/16 17:45 11/10/16 17:44 11/07/16 21:15 Al Hydroxide/Mg Hydroxide (Mylanta II) 30 ml Q6H PRN ORAL dyspepsia 11/03/16 17:45 12/03/16 17:44 Albuterol/ Ipratropium 3 ml 3 ml EVERY 4 HOURS PRN HHN Shortness of Breath 11/03/16 17:45 11/08/16 17:44 Amlodipine Besylate (Norvasc) 10 mg DAILY ORAL 11/04/16 09:00 12/04/16 08:59 11/08/16 08:24 Benazepril HCl (Lotensin) 10 mg DAILY ORAL 11/04/16 09:00 12/04/16 08:59 11/08/16 08:23 Carvedilol (Coreg) 3.125 mg BID ORAL 11/03/16 21:00 12/03/16 20:59 11/08/16 08:23 Cefepime HCl/ Dextrose (Maxipime/D5W) 55 ml @ 110 mls/hr EVERY 12 HOURS IV 11/03/16 21:00 11/10/16 20:59 11/08/16 08:22 Celecoxib (CeleBREX) 200 mg DAILY ORAL 11/04/16 09:00 12/04/16 08:59 11/08/16 08:24 Dextrose (Dextrose 50%) STAT PRN IV Hypoglycemia 11/03/16 17:45 12/03/16 17:44 Heparin Sodium (Porcine) (Heparin 5000 units/ml) 5,000 units EVERY 12 HOURS SUBQ 11/03/16 21:00 12/03/16 20:59 11/08/16 08:30 Insulin Aspart (NovoLOG) BEFORE MEALS AND HS SUBQ 11/03/16 21:00 12/03/16 20:59 11/08/16 12:11 Magnesium Hydroxide (Mom) 30 ml DAILY PRN ORAL Constipation 11/04/16 09:00 12/04/16 08:59 11/06/16 20:23 Nitroglycerin (Ntg) 0.4 mg Q5M PRN SL Prn Chest Pain 11/03/16 17:45 12/03/16 17:44 Ondansetron HCl (Zofran) 4 mg Q6H PRN IVP Nausea & Vomiting 11/03/16 17:45 12/03/16 17:44 11/06/16 16:35 Polyethylene Glycol (Miralax) 17 gm DAILYPRN PRN ORAL Constipation 11/03/16 17:45 12/03/16 17:44 Promethazine HCl/ Codeine (Phenergan with Codeine) 5 ml Q4H PRN ORAL For Cough 11/03/16 17:45 12/03/16 17:44 Temazepam (Restoril) 15 mg HSPRN PRN ORAL Insomnia 11/03/16 17:45 11/10/16 17:44 Allergies: Coded Allergies: No Known Allergies (Unverified , 05/11/16) Subjective awake, alert, responsive, NAD Objective Last Vital Signs Date Time Temp Pulse Resp B/P Pulse Ox O2 Delivery O2 Flow Rate FiO2 11/08/16 12:35 82 18 99 Room Air 21 11/08/16 12:00 98.1 135/77 Laboratory Tests Test 11/08/16 08:50 White Blood Count 8.1 K/UL (4.8-10.8) Red Blood Count 5.33 M/UL (4.20-5.40) Hemoglobin 12.4 G/DL (12.0-16.0) Hematocrit 40.6 % (37.0-47.0) Mean Corpuscular Volume 76 FL (80-99) L Mean Corpuscular Hemoglobin 23.2 PG (27.0-31.0) L Mean Corpuscular Hemoglobin Concent 30.4 G/DL (32.0-36.0) L Red Cell Distribution Width 15.4 % (11.6-14.8) H Platelet Count 337 K/UL (150-450) Mean Platelet Volume 6.9 FL (6.5-10.1) Neutrophils (%) (Auto) 53.9 % (45.0-75.0) Lymphocytes (%) (Auto) 33.1 % (20.0-45.0) Monocytes (%) (Auto) 10.4 % (1.0-10.0) H Eosinophils (%) (Auto) 1.8 % (0.0-3.0) Basophils (%) (Auto) 0.9 % (0.0-2.0) Sodium Level 136 mEQ/L (135-145) Potassium Level 4.3 mEQ/L (3.4-4.9) Chloride Level 96 mEQ/L (98-107) L Carbon Dioxide Level 26 mEQ/L (20-30) Anion Gap 14 (5-15) Blood Urea Nitrogen 16 mg/dL (7-23) Creatinine 0.7 mg/dL (0.5-0.9) Estimat Glomerular Filtration Rate > 60 mL/min (>60) Glucose Level 334 mg/dL (74-106) #H Calcium Level 9.4 mg/dL (8.6-10.2) Intake and Output 11/07/16 11/08/16 19:00 07:00 Intake Total 600 ml 55 ml Balance 600 ml 55 ml Intake Oral 600 ml IV Total 55 ml # Voids 2 Objective General: No acute distress, awake and alert HEENT: NCAT, sclera anicteric, PERRL, EOMI. Neck: Supple, no significant jugular venous distention, Lungs: Good inspiratory effort, no accessory muscle use, clear to auscultation bilaterally, no Wheeze or Rales. Heart: Regular rate and rhythm, normal S1/S2, no murmurs Abdomen: soft, nontender, nondistended. Normoactive bowel sounds. / Rectal: Refused and deferred. Extremities: No Cyanosis , clubbing or edema. Neuro: A&O x 3, Able to move all extremities Skin: warm, no rashes or lesions Psych: Normal mood and affect Assessment/Plan Assessment/Plan (1) Sepsis due to E. Coli UTI. (2) Diabetes mellitus type II, uncontrolled (3) HTN (hypertension) (4) Cerebral vascular disease (5) UTI (urinary tract infection) (6) Leukocytosis Plan: Discharge home today F/U with my office in 1 week on Keflex 500mg QID X 10 days. Luis Fernando Cintron MD Nov 08, 2016 15:04
--- NOTE | 2016-11-08 19:47 | Internal Med Progress Note ---
Subjective Date of Service: Nov 08, 2016 Physician Name Tia Mon Attending Physician Luis Fernando Cintron MD Allergies: Coded Allergies: No Known Allergies (Unverified , 05/11/16) ROS Limited/Unobtainable: No Constitutional: Reports: no symptoms HEENT: Reports: no symptoms Cardiovascular: Reports: no symptoms Respiratory: Reports: no symptoms Gastrointestinal/Abdominal: Reports: abdominal pain Genitourinary: Reports: no symptoms Neurologic/Psychiatric: Reports: no symptoms Subjective 61 YO F admitted with abdominal pain. Now UTI and sepsis. Cover for Int Med- Dr Cintron. Await discharge home Objective Last Vital Signs Date Time Temp Pulse Resp B/P Pulse Ox O2 Delivery O2 Flow Rate FiO2 11/08/16 12:35 82 18 99 Room Air 21 11/08/16 12:00 98.1 135/77 Laboratory Tests Test 11/08/16 08:50 White Blood Count 8.1 K/UL (4.8-10.8) Red Blood Count 5.33 M/UL (4.20-5.40) Hemoglobin 12.4 G/DL (12.0-16.0) Hematocrit 40.6 % (37.0-47.0) Mean Corpuscular Volume 76 FL (80-99) L Mean Corpuscular Hemoglobin 23.2 PG (27.0-31.0) L Mean Corpuscular Hemoglobin Concent 30.4 G/DL (32.0-36.0) L Red Cell Distribution Width 15.4 % (11.6-14.8) H Platelet Count 337 K/UL (150-450) Mean Platelet Volume 6.9 FL (6.5-10.1) Neutrophils (%) (Auto) 53.9 % (45.0-75.0) Lymphocytes (%) (Auto) 33.1 % (20.0-45.0) Monocytes (%) (Auto) 10.4 % (1.0-10.0) H Eosinophils (%) (Auto) 1.8 % (0.0-3.0) Basophils (%) (Auto) 0.9 % (0.0-2.0) Sodium Level 136 mEQ/L (135-145) Potassium Level 4.3 mEQ/L (3.4-4.9) Chloride Level 96 mEQ/L (98-107) L Carbon Dioxide Level 26 mEQ/L (20-30) Anion Gap 14 (5-15) Blood Urea Nitrogen 16 mg/dL (7-23) Creatinine 0.7 mg/dL (0.5-0.9) Estimat Glomerular Filtration Rate > 60 mL/min (>60) Glucose Level 334 mg/dL (74-106) #H Calcium Level 9.4 mg/dL (8.6-10.2) Intake and Output 11/07/16 11/08/16 19:00 07:00 Intake Total 600 ml 55 ml Balance 600 ml 55 ml Intake Oral 600 ml IV Total 55 ml # Voids 2 Objective General: alert, cooperative, no distress, appears stated age Head: normocephalic, without obvious abnormality, atraumatic Eyes: conjunctivae/corneas clear. PERRL, EOM's intact Throat: lips, mucosa, and tongue normal. MMM Neck: supple, symmetrical, trachea midline, and no JVD Lungs: clear to auscultation bilaterally Heart: regular rate and rhythm, S1, S2 normal, no murmur, click, rub or gallop Abdomen: soft, tender to palp vlad lower quad, non-distended, bowel sounds normal ; no masses or organomegaly Extremities: extremities normal, atraumatic, no cyanosis or edema Pulses: 2+ and symmetric Skin: skin color, texture, turgor normal; no rashes or lesions Neurologic: grossly normal, no focal deficits Assessment/Plan Problem List: (1) Sepsis Assessment & Plan: E. Coli from urine. Cont cefepime; see Inf Dis recs. (2) Diabetes mellitus type II, uncontrolled Assessment & Plan: Cont novolog sliding scale. (3) HTN (hypertension) Assessment & Plan: Cont norvasc, lisinorpil and coreg. (4) Cerebral vascular disease (5) UTI (urinary tract infection) Assessment & Plan: E. Coli. Cont cefepime per ID. (6) Leukocytosis Assessment/Plan Discharge home today on Keflex 500 mg QID TIA MON Nov 08, 2016 19:47
--- NOTE | 2016-11-08 23:01 | Pulmonology Progress Note ---
Assessment/Plan Problems: (1) Sepsis (2) Gram-negative bacteremia (3) Diabetes mellitus type II, uncontrolled (4) HTN (hypertension) Assessment/Plan IV antibioitcs, f/u by ID improving pain management monitor BP, titrate meds sliding scale dvt prophylaxis Subjective ROS Limited/Unobtainable: No Interval Events: late note for 11/07 doing better Allergies: Coded Allergies: No Known Allergies (Unverified , 05/11/16) Objective Last 24 Hour Vital Signs Date Time Temp Pulse Resp B/P Pulse Ox O2 Delivery O2 Flow Rate FiO2 11/08/16 12:35 82 18 99 Room Air 21 11/08/16 12:35 82 18 99 Room Air 21 11/08/16 12:00 98.1 64 20 135/77 99 Room Air 11/08/16 08:24 69 148/64 11/08/16 08:23 69 148/64 11/08/16 08:23 148/64 11/08/16 07:46 98.7 69 18 148/84 98 Room Air 11/08/16 07:42 94 18 99 Room Air 21 11/08/16 07:42 92 18 99 Room Air 21 11/08/16 04:00 97.5 67 18 122/70 97 Room Air 11/08/16 01:23 82 20 99 Room Air 21 11/08/16 01:22 72 20 98 Room Air 21 11/08/16 00:00 97.7 73 18 105/61 98 Room Air Intake and Output 11/07/16 11/08/16 19:00 07:00 Intake Total 600 ml 55 ml Balance 600 ml 55 ml Intake Oral 600 ml IV Total 55 ml # Voids 2 Objective General Appearance: WD/WN HEENT: normocephalic Respiratory/Chest: chest wall non-tender, lungs clear, normal breath sounds Cardiovascular: normal peripheral pulses, normal rate, regular rhythm Abdomen: normal bowel sounds, soft, non tender, no organomegaly, non distended Extremities: no cyanosis, no clubbing Skin: no rash, no lesions Neurologic/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 Laboratory Tests 11/08/16 08:50: White Blood Count 8.1, Red Blood Count 5.33, Hemoglobin 12.4, Hematocrit 40.6, Mean Corpuscular Volume 76L, Mean Corpuscular Hemoglobin 23.2L, Mean Corpuscular Hemoglobin Concent 30.4L, Red Cell Distribution Width 15.4H, Platelet Count 337, Mean Platelet Volume 6.9, Neutrophils (%) (Auto) 53.9, Lymphocytes (%) (Auto) 33.1, Monocytes (%) (Auto) 10.4H, Eosinophils (%) (Auto) 1.8, Basophils (%) (Auto) 0.9, Sodium Level 136, Potassium Level 4.3, Chloride Level 96L, Carbon Dioxide Level 26, Anion Gap 14, Blood Urea Nitrogen 16, Creatinine 0.7, Estimat Glomerular Filtration Rate > 60, Glucose Level 334#H, Calcium Level 9.4 LATANYA KNIGHT Nov 08, 2016 23:01
--- NOTE | 2016-11-08 23:02 | Pulmonology Progress Note ---
Assessment/Plan Problems: (1) Sepsis (2) Gram-negative bacteremia (3) Diabetes mellitus type II, uncontrolled (4) HTN (hypertension) Assessment/Plan improving, might go home wtih f/u with primary pain management monitor BP, titrate meds sliding scale dvt prophylaxis Subjective ROS Limited/Unobtainable: No Interval Events: less pain Allergies: Coded Allergies: No Known Allergies (Unverified , 05/11/16) Objective Last 24 Hour Vital Signs Date Time Temp Pulse Resp B/P Pulse Ox O2 Delivery O2 Flow Rate FiO2 11/08/16 12:35 82 18 99 Room Air 21 11/08/16 12:35 82 18 99 Room Air 21 11/08/16 12:00 98.1 64 20 135/77 99 Room Air 11/08/16 08:24 69 148/64 11/08/16 08:23 69 148/64 11/08/16 08:23 148/64 11/08/16 07:46 98.7 69 18 148/84 98 Room Air 11/08/16 07:42 94 18 99 Room Air 21 11/08/16 07:42 92 18 99 Room Air 21 11/08/16 04:00 97.5 67 18 122/70 97 Room Air 11/08/16 01:23 82 20 99 Room Air 21 11/08/16 01:22 72 20 98 Room Air 21 11/08/16 00:00 97.7 73 18 105/61 98 Room Air Intake and Output 11/07/16 11/08/16 19:00 07:00 Intake Total 600 ml 55 ml Balance 600 ml 55 ml Intake Oral 600 ml IV Total 55 ml # Voids 2 Objective General Appearance: WD/WN HEENT: normocephalic Respiratory/Chest: chest wall non-tender, lungs clear, normal breath sounds Cardiovascular: normal peripheral pulses, normal rate, regular rhythm Abdomen: normal bowel sounds, soft, non tender, no organomegaly, non distended Extremities: no cyanosis, no clubbing Skin: no rash, no lesions 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 Laboratory Tests 11/08/16 08:50: White Blood Count 8.1, Red Blood Count 5.33, Hemoglobin 12.4, Hematocrit 40.6, Mean Corpuscular Volume 76L, Mean Corpuscular Hemoglobin 23.2L, Mean Corpuscular Hemoglobin Concent 30.4L, Red Cell Distribution Width 15.4H, Platelet Count 337, Mean Platelet Volume 6.9, Neutrophils (%) (Auto) 53.9, Lymphocytes (%) (Auto) 33.1, Monocytes (%) (Auto) 10.4H, Eosinophils (%) (Auto) 1.8, Basophils (%) (Auto) 0.9, Sodium Level 136, Potassium Level 4.3, Chloride Level 96L, Carbon Dioxide Level 26, Anion Gap 14, Blood Urea Nitrogen 16, Creatinine 0.7, Estimat Glomerular Filtration Rate > 60, Glucose Level 334#H, Calcium Level 9.4 LATANYA KNIGHT Nov 08, 2016 23:02
--- NOTE | 2016-11-09 20:40 | Discharge Summary ---
Discharge Summary Hospital Course Date of Admission Nov 03, 2016 at 15:54 Date of Discharge Nov 08, 2016 at 18:43 Admitting Diagnosis SEPSIS,uti HPI Katrin Moulton is a 61 year old female who was admitted on Nov 03, 2016 at 15: 54 for Sepsis, Urinary Tract Infection Hospital Course [id number] Discharge Discharge Disposition Patient was discharged to Home (01) Discharge Diagnoses: Racheal John NP Nov 09, 2016 20:40
--- NOTE | 2016-11-11 11:08 | Discharge Summary 2 SIG ---
DATE OF ADMISSION: 11/03/2016 DATE OF DISCHARGE: 11/08/2016 CONSULTANTS: 1. Heath Siddiqui M.D. 2. Hitesh Escobar MD. BRIEF HOSPITAL COURSE: The patient is a 61-year-old female with past medical history significant for diabetes type 2, hypertension, bilateral knee surgery, and prior history of stroke in 2004 presented to the hospital complaining of lower abdominal pain associated with fever, chills and dysuria. Shortly after evaluation at ED, was noted to have elevated white count and was subsequently admitted to the hospital with sepsis secondary to urinary tract infection. She was given IV hydration and was started empirically on antibiotics, was seen by Infectious Disease specialist. Blood culture and urine culture with growth of E. coli. Renal ultrasound done was negative. Abdominal ultrasound showed was negative for gallstones or dilated ducts. She was given IV cefepime and was discharged home to follow up in the office in a week, was advised to continue Keflex 500 mg q.i.d. for 10 more days. FINAL DIAGNOSES: 1. Sepsis due to Escherichia coli urinary tract infection. 2. Diabetes mellitus type 2, uncontrolled. 3. Hypertension. 4. Cerebrovascular disease. 5. Urinary tract infection with Escherichia coli. 6. Leucocytosis. Luis Fernando Cintron M.D. I have been assigned to dictate discharge summary on this account and I was not involved in the patient's management. Racheal John N.P. DR: Fernando JOB#: [id number] CC: [id number]
== END 2016-11-08 18:43 | disposition home or self-care (01) | DRG 872 ==
LOC: EDBD 13:49 → EMR 14:15 → EDUNIT# 14:15 → 3E 15:54 → EDBEDREQSVC 16:15 → EDBEDREQ 17:09
DX: A41.9 Sepsis, unspecified organism (principal); E11.65 Type 2 diabetes mellitus with hyperglycemia; I10 Essential (primary) hypertension; N39.0 Urinary tract infection, site not specified; B96.20 Unspecified Escherichia coli [E. coli] as the cause of diseases classified elsewhere; Z96.653 Presence of artificial knee joint, bilateral; E86.0 Dehydration; Z86.73 Personal history of transient ischemic attack (TIA), and cerebral infarction without residual deficits
CPT/HCPCS: 36415; 71010; 76700; 76775; 80048; 80053; 80069; 80300; 81003; 81025; 82164; 82962; 83605; 83690; 83735; 84100; 84484; 85007; 85025; 85651; 86140; 87040; 87086; 87181; 93005; J1815; J2405; J8499

== ENCOUNTER 2017-05-18 08:53 | Emergency (ER) | payer BC ==
[~2017-05-18] VITALS: Ht 165.1 cm; Wt 93.0 kg
[~2017-05-18 08:53] MED LIST changes: +CEPHALEXIN500 MG ORAL
[2017-05-18] MEDS ORDERED: Ketorolac 30mg Inj IV ONE (09:15)
[2017-05-18 09:27] LABS: BASOPHILS % (AUTO) 0.8 % (0.0-2.0); EOSINOPHILS % (AUTO) 1.1 % (0.0-3.0); LYMPHOCYTES % (AUTO) 30.1 % (20.0-45.0); MEAN CORPUSCULAR HEMOGLOBIN 24.7 PG (27.0-31.0); MEAN CORPUSCULAR HGB CONC 31.4 G/DL (32.0-36.0); MEAN CORPUSCULAR VOLUME 78 FL (80-99); MEAN PLATELET VOLUME 7.8 FL (6.5-10.1); MONOCYTES % (AUTO) 6.8 % (1.0-10.0); NEUTROPHILS % (AUTO) 61.2 % (45.0-75.0); PLATELET COUNT 319 K/UL (150-450); RED BLOOD COUNT 5.32 M/UL (4.20-5.40); RED CELL DISTRIBUTION WIDTH 15.3 % (11.6-14.8); WHITE BLOOD COUNT 12.1 K/UL (4.8-10.8)
[2017-05-18 09:41] VITALS: BP 159/89
[2017-05-18 10:02] LABS: ALANINE AMINOTRANSFERASE 29 U/L (12-78); ANION GAP 13 mmol/L (5-15); ASPARTATE AMINO TRANSFERASE 28 U/L (15-37); CALCIUM 9.9 MG/DL (8.5-10.1); CARBON DIOXIDE 23 MMOL/L (21-32); CHLORIDE 96 MMOL/L (98-107); CKMB 1.1 NG/ML (0.0-3.6); CREATININE 1.1 MG/DL (0.55-1.30); GLOMERULAR FILTRATION RATE 50.2 mL/min (>60); POTASSIUM 3.4 MMOL/L (3.5-5.1); SODIUM 132 MMOL/L (136-145); TOTAL PROTEIN 8.7 G/DL (6.4-8.2)
--- NOTE | 2017-05-18 10:08 | Diagnostic Imaging Report ---
Indication: Chest pain Technique: One view of the chest Comparison: 11/03/2016 Findings: Lungs and pleural spaces are clear. Heart size is normal. Findings are unchanged Impression: No acute process
[2017-05-18] MEDS ORDERED: CYCLOBENZAPRINE10 MG ORAL (10:26)
[2017-05-18] MEDS ORDERED: ACETAMINOPHEN-1 EAC1 ORAL (10:26)
[2017-05-18 10:55] VITALS: BP 150/89
--- NOTE | 2017-05-18 11:34 | Emergency Room Report ---
History of Present Illness General Chief Complaint: Chest Pain Source: Patient Present Illness HPI 61-year-old female presents ED complaining of right upper back pain for last 10 days. States it is worse with standing and bending and twisting. 10 out of 10 , sharp, radiating to right shoulder. Denies chest pain or shortness of breath. Denies fevers or chills. Denies cough. Denies trauma. No other aggravating or leading factors. Denies any other associated symptoms Allergies: Coded Allergies: No Known Allergies (Unverified , 05/11/16) Patient History Past Medical History: DM, HTN, CVA/TIA Past Surgical History: none Pertinent Family History: none Social History: Denies: smoking, alcohol use, drug use Now: No Immunizations: UTD Reviewed Nursing Documentation: PMH: Agreed, PSxH: Agreed Nursing Documentation-PMH Past Medical History: No History, Except For Hx Cardiac Problems: Yes Hx Hypertension: Yes Hx Diabetes: Yes Hx Cancer: No Hx Gastrointestinal Problems: No Hx Neurological Problems: Yes Hx Cerebrovascular Accident: Yes - 2004 Review of Systems All Other Systems: negative except mentioned in HPI Physical Exam Vital Signs Date Time Temp Pulse Resp B/P (MAP) Pulse Ox O2 Delivery O2 Flow Rate FiO2 05/18/17 09:00 98.1 98 20 159/67 99 Room Air Sp02 EP Interpretation: reviewed, normal General Appearance: no apparent distress, alert, GCS 15, non-toxic Head: normocephalic Eyes: bilateral eye normal inspection, bilateral eye PERRL ENT: normal ENT inspection Neck: full range of motion, no bony tend, supple/symm/no masses Respiratory: chest non-tender, lungs clear, normal breath sounds, speaking full sentences Cardiovascular #1: regular rate, rhythm, no edema Gastrointestinal: normal inspection Rectal: deferred Genitourinary: no CVA tenderness Musculoskeletal: tender - paraspinal thoracic pain Neurologic: alert, oriented x3, responsive, motor strength/tone normal, sensory intact, speech normal Psychiatric: normal inspection Skin: normal inspection Lymphatic: normal inspection Medical Decision Making Diagnostic Impression: Primary Impression: Upper back strain Qualified Codes: S29.012A - Strain of muscle and tendon of back wall of thorax , initial encounter ER Course Hospital Course 61-year-old F presents ED complaining of right shoulder, upper back pain Differential diagnoses include: Rib fracture, SC/unstable angina, contusion, muscle strain Clinical course Patient placed on stretcher. After initial history and physical I ordered labs , EKG, chest x-ray. labs reviewed- all electrolytes normal, troponins negative, no leukocytosis, hemoglobin/hematocrit stable EKG - NSR, no acute ischemic changes interpreted by me Chest x-ray-no cardiomegaly, no rib fracture, no pneumothorax, no acute process Pain is muscular in nature. Given Toradol and valium in ED with minimal improvement however I do believe patient requires additional workup at this time and recommended discharged home with continued prescriptions I. I feel this is a highly complex case requiring extensive working including EKG/Rhythm strip, Xray/CT/US, Blood/urine lab work, repeat exams while in ED, and administration of strong opiates/narcotics for pain control, admission to hospital or close patient follow up. Diagnosis - upper back strain Stable and discharged to home with Rx Tylenol #3, Flexeril. Instructed to followup with PMD. Return to ED if symptoms recur or worsen Labs Test 05/18/17 09:10 White Blood Count 12.1 K/UL (4.8-10.8) Red Blood Count 5.32 M/UL (4.20-5.40) Hemoglobin 13.1 G/DL (12.0-16.0) Hematocrit 41.7 % (37.0-47.0) Mean Corpuscular Volume 78 FL (80-99) Mean Corpuscular Hemoglobin 24.7 PG (27.0-31.0) Mean Corpuscular Hemoglobin Concent 31.4 G/DL (32.0-36.0) Red Cell Distribution Width 15.3 % (11.6-14.8) Platelet Count 319 K/UL (150-450) Mean Platelet Volume 7.8 FL (6.5-10.1) Neutrophils (%) (Auto) 61.2 % (45.0-75.0) Lymphocytes (%) (Auto) 30.1 % (20.0-45.0) Monocytes (%) (Auto) 6.8 % (1.0-10.0) Eosinophils (%) (Auto) 1.1 % (0.0-3.0) Basophils (%) (Auto) 0.8 % (0.0-2.0) Sodium Level 132 MMOL/L (136-145) Potassium Level 3.4 MMOL/L (3.5-5.1) Chloride Level 96 MMOL/L (98-107) Carbon Dioxide Level 23 MMOL/L (21-32) Anion Gap 13 mmol/L (5-15) Blood Urea Nitrogen 14 mg/dL (7-18) Creatinine 1.1 MG/DL (0.55-1.30) Estimat Glomerular Filtration Rate 50.2 mL/min (>60) Glucose Level 424 MG/DL (74-106) Calcium Level 9.9 MG/DL (8.5-10.1) Total Bilirubin 0.4 MG/DL (0.2-1.0) Aspartate Amino Transf (AST/SGOT) 28 U/L (15-37) Alanine Aminotransferase (ALT/SGPT) 29 U/L (12-78) Alkaline Phosphatase 152 U/L (46-116) Total Creatine Kinase 63 U/L (26-308) Creatine Kinase MB 1.1 NG/ML (0.0-3.6) Creatine Kinase MB Relative Index 1.7 Troponin I 0.000 ng/mL (0.000-0.056) Total Protein 8.7 G/DL (6.4-8.2) Albumin 4.3 G/DL (3.4-5.0) Globulin 4.4 g/dL Albumin/Globulin Ratio 1.0 (1.0-2.7) EKG Diagnostic Results Rate: tachycardiac Rhythm: NSR ST Segments: no acute changes ASA given to the pt in ED: No Rhythm Strip Diag. Results EP Interpretation: yes Rhythm: NSR, no PVC's, no ectopy Chest X-Ray Diagnostic Results Chest X-Ray Diagnostic Results : Chest X-Ray Ordered: Yes # of Views/Limited/Complete: 1 View Indication: Chest Pain EP Interpretation: Yes Interpretation: no consolidation, no effusion, no pneumothorax, no acute cardiopulmonary disease Impression: No acute disease Electronically Signed by: Electronically signed by Davey Watts MD Last Vital Signs Date Time Temp Pulse Resp B/P (MAP) Pulse Ox O2 Delivery O2 Flow Rate FiO2 05/18/17 10:55 80 19 150/89 99 Room Air 05/18/17 10:00 98.1 Status: improved Disposition: HOME, SELF-CARE Condition: Stable Scripts Cyclobenzaprine Hcl* (FLEXERIL*) 10 Mg Tablet 10 MG ORAL TID Y for Muscle Spasm, #20 TAB Prov: DAVEY WATTS M.D. 05/18/17 Acetaminophen With Codeine (T#3) (TYLENOL #3 TAB*) Y Tab 1 TAB ORAL Q8H Y for For Pain, #20 TAB Prov: DAVEY WATTS M.D. 05/18/17 Patient Instructions: Mid-Back Strain With Rehab-SportsMed DAVEY WATTS M.D. May 18, 2017 11:34
--- NOTE | 2017-05-20 14:50 | Cardiology Report ---
APPROVED REPORT EKG Measurement Heart [id number] Sinus tachycardia with premature atrial complexes Septal infarct, age undetermined Abnormal ECG
== END 2017-05-18 10:57 | disposition home or self-care (01) ==
LOC: EMR 09:29
DX: S29.012A Strain of muscle and tendon of back wall of thorax, initial encounter (principal); X50.1XXA Overexertion from prolonged static or awkward postures, initial encounter; Y92.89 Other specified places as the place of occurrence of the external cause; E11.9 Type 2 diabetes mellitus without complications; I10 Essential (primary) hypertension; Z86.73 Personal history of transient ischemic attack (TIA), and cerebral infarction without residual deficits
CPT/HCPCS: 36415; 71010; 80053; 82550; 82553; 84484; 85025; 93005; 96374; 99284; J1885

== ENCOUNTER 2017-07-14 12:47 | Emergency (ER) | payer BC ==
[~2017-07-14] VITALS: Ht 165.1 cm; Wt 95.3 kg
[~2017-07-14 12:47] MED LIST changes: +ACETAMINOPHEN-1 EAC1 ORAL; +CYCLOBENZAPRINE10 MG ORAL
[2017-07-14 13:10] VITALS: BP 149/93
[2017-07-14] MEDS ORDERED: Meclizine 25mg tab ORAL PRN (14:00)
[2017-07-14 14:36] LABS: BASOPHILS % (AUTO) 0.7 % (0.0-2.0); EOSINOPHILS % (AUTO) 1.1 % (0.0-3.0); HEMATOCRIT 39.6 % (37.0-47.0); HEMOGLOBIN 12.2 G/DL (12.0-16.0); LYMPHOCYTES % (AUTO) 31.1 % (20.0-45.0); MEAN CORPUSCULAR VOLUME 78 FL (80-99); MONOCYTES % (AUTO) 6.5 % (1.0-10.0); NEUTROPHILS % (AUTO) 60.5 % (45.0-75.0); PLATELET COUNT 324 K/UL (150-450); RED BLOOD COUNT 5.08 M/UL (4.20-5.40); RED CELL DISTRIBUTION WIDTH 14.6 % (11.6-14.8); WHITE BLOOD COUNT 12.6 K/UL (4.8-10.8)
--- NOTE | 2017-07-14 14:53 | Emergency Room Report ---
History of Present Illness General Chief Complaint: Dizziness Present Illness HPI 62-year-old female presents to the emergency department complaining of episodes of dizziness in which she describes the room quickly spinning around her intermittently times one week. Patient denies auditory or visual changes/ disturbances associated with dizziness. Patient reports some nausea. Patient denies hitting her head, recent illness or these episodes. Patient denies weakness in the extremities she does report intermittent cramping in her forearms and thighs. She denies pain at this time. She states that her dizziness is elicited upon change of position. Patient denies vomiting, fevers , chills, abdominal pain. Denies ear pain, tinnitus, or nasal congestion. pt. reports feeling some "tightness in her chest" she does not describe pain. Reports hx of DM. Denies , Palpitations, LOC, AMS, dizziness, Changes in Vision , Sensation, paresthesias, or a sudden severe headache. Allergies: Coded Allergies: No Known Allergies (Unverified , 05/11/16) Patient History Past Medical History: see triage record, DM Past Surgical History: none Pertinent Family History: none Immunizations: UTD Reviewed Nursing Documentation: PMH: Agreed, PSxH: Agreed Nursing Documentation-PMH Hx Cardiac Problems: Yes Hx Hypertension: Yes Hx Diabetes: Yes Hx Cancer: No Hx Gastrointestinal Problems: No Hx Neurological Problems: Yes Hx Cerebrovascular Accident: Yes - 2004 Review of Systems All Other Systems: negative except mentioned in HPI Physical Exam Vital Signs Date Time Temp Pulse Resp B/P (MAP) Pulse Ox O2 Delivery O2 Flow Rate FiO2 07/14/17 12:54 97.5 76 20 149/93 99 Room Air Sp02 EP Interpretation: reviewed, normal General Appearance: no apparent distress, alert, GCS 15, non-toxic Head: normocephalic, atraumatic Eyes: bilateral eye normal inspection, bilateral eye PERRL ENT: hearing grossly normal, normal voice Neck: full range of motion, no meningismus Respiratory: chest non-tender, lungs clear, normal breath sounds, no wheezing, speaking full sentences Cardiovascular #1: regular rate, rhythm, no edema, normal capillary refill Gastrointestinal: normal bowel sounds, non tender, soft Rectal: deferred Genitourinary: normal inspection, no CVA tenderness Musculoskeletal: back normal, gait/station normal, normal range of motion, non- tender, no calf tenderness Neurologic: alert, oriented x3, responsive, motor strength/tone normal, sensory intact, cerebellar normal, normal gait, speech normal, no pronator, other - no nystagmus illicited durring [place], however vertigo was illicited once pt. sat back up. Skin: normal color, no rash, warm/dry, well hydrated Lymphatic: no adenopathy Medical Decision Making PA Attestation Dr. Rodriguez is my supervising Physician whom patient management has been discussed with. Diagnostic Impression: Primary Impression: Vertigo Additional Impression: Nonspecific chest pain ER Course 62-year-old female presents to the emergency department complaining of episodes of dizziness in which she describes the room quickly spinning around her intermittently times one week. Patient denies auditory or visual changes/ disturbances associated with dizziness. Patient reports some nausea. Patient denies hitting her head, recent illness or these episodes. Patient denies weakness in the extremities she does report intermittent cramping in her forearms and thighs. She denies pain at this time. She states that her dizziness is elicited upon change of position. Patient denies vomiting, fevers , chills, abdominal pain. Denies ear pain, tinnitus, or nasal congestion. pt. reports feeling some "tightness in her chest" she does not describe pain. Denies , Palpitations, LOC, AMS, dizziness, Changes in Vision, Sensation, paresthesias, or a sudden severe headache. Ddx considered but are not limited to Mnire's, BPPV, labrinitis, cerebellar stroke, hypovolemia, cardiac cause. Vital signs: are WNL, pt. is afebrile H&PE are most consistent with : Peripheral vertigo. ORDERS: -CT head no contrast- negative for ICH, EDEMA, or mass -CMP: Electrolytes are normal, glucose is elevated 220 -Troponins, CK-MB, CK- all negative -CXR:. unremarkable -UA: pt. unable to provide urine, felt better after interventions and wanted to be discharged. ED INTERVENTIONS: -Meclizine PO -1 Liter NS -Re-evaluation pt. reports that her dizziness has resolved. DISCHARGE: At this time pt. is stable for d/c to home. Will provide printed patient care instructions, and any necessary prescriptions. Care plan and follow up instructions have been discussed with the patient prior to discharge. Labs Test 07/14/17 14:00 White Blood Count 12.6 K/UL (4.8-10.8) Red Blood Count 5.08 M/UL (4.20-5.40) Hemoglobin 12.2 G/DL (12.0-16.0) Hematocrit 39.6 % (37.0-47.0) Mean Corpuscular Volume 78 FL (80-99) Mean Corpuscular Hemoglobin 24.0 PG (27.0-31.0) Mean Corpuscular Hemoglobin Concent 30.8 G/DL (32.0-36.0) Red Cell Distribution Width 14.6 % (11.6-14.8) Platelet Count 324 K/UL (150-450) Mean Platelet Volume 7.5 FL (6.5-10.1) Neutrophils (%) (Auto) 60.5 % (45.0-75.0) Lymphocytes (%) (Auto) 31.1 % (20.0-45.0) Monocytes (%) (Auto) 6.5 % (1.0-10.0) Eosinophils (%) (Auto) 1.1 % (0.0-3.0) Basophils (%) (Auto) 0.7 % (0.0-2.0) Sodium Level 136 MMOL/L (136-145) Potassium Level 3.8 MMOL/L (3.5-5.1) Chloride Level 100 MMOL/L (98-107) Carbon Dioxide Level 24 MMOL/L (21-32) Anion Gap 12 mmol/L (5-15) Blood Urea Nitrogen 26 mg/dL (7-18) Creatinine 0.8 MG/DL (0.55-1.30) Estimat Glomerular Filtration Rate > 60 mL/min (>60) Glucose Level 220 MG/DL (74-106) Calcium Level 8.2 MG/DL (8.5-10.1) Total Bilirubin 0.3 MG/DL (0.2-1.0) Aspartate Amino Transf (AST/SGOT) 37 U/L (15-37) Alanine Aminotransferase (ALT/SGPT) 35 U/L (12-78) Alkaline Phosphatase 136 U/L (46-116) Total Creatine Kinase 46 U/L (26-308) Creatine Kinase MB < 0.5 NG/ML (0.0-3.6) Creatine Kinase MB Relative Index 1.0 Troponin I 0.007 ng/mL (0.000-0.056) Total Protein 8.1 G/DL (6.4-8.2) Albumin 3.7 G/DL (3.4-5.0) Globulin 4.4 g/dL Albumin/Globulin Ratio 0.8 (1.0-2.7) EKG Diagnostic Results EP Interpretation: Dr. Rodriguez Rate: normal - 67 Rhythm: NSR ST Segments: no acute changes LINDSEY Scribe Text this interpretation was scribed by LINDSEY Washington Chest X-Ray Diagnostic Results Chest X-Ray Diagnostic Results : Chest X-Ray Ordered: Yes # of Views/Limited/Complete: 1 View Indication: Chest Pain EP Interpretation: Yes PA Xray: Interpretation reviewed, by supervising MD, and agrees with findings. Interpretation: no consolidation, no effusion, no pneumothorax Impression: No acute disease Electronically Signed by: Amada Washington PA-C Last Vital Signs Date Time Temp Pulse Resp B/P (MAP) Pulse Ox O2 Delivery O2 Flow Rate FiO2 07/14/17 13:10 97.5 20 149/93 99 Room Air 07/14/17 12:54 76 Disposition: HOME, SELF-CARE Condition: Stable Scripts Meclizine Hcl* (VERTICALM*) 25 Mg Tablet 25 MG ORAL THREE TIMES A DAY for 5 Days, #20 TAB Prov: Amada Washington 07/14/17 Referrals: NOT CHOSEN IPA/,REFERRING (PCP) Patient Instructions: Vertigo Additional Instructions: Take medications as directed. Follow up with a Primary Care Provider in 3-5 days, For Neurologist referral as needed. --Please review list of primary care clinics, if you do not already have a primary care provider Return sooner to ED if new symptoms occur, or current symptoms become worse. - Please note that this Emergency Department Report was dictated using [employer] manager technology software, occasionally this can lead to erroneous entry secondary to interpretation by the dictation equipment. Amada Washington Jul 14, 2017 14:53
[2017-07-14 14:56] LABS: ANION GAP 12 mmol/L (5-15); BLOOD UREA NITROGEN 26 mg/dL (7-18); CALCIUM 8.2 MG/DL (8.5-10.1); CARBON DIOXIDE 24 MMOL/L (21-32); CHLORIDE 100 MMOL/L (98-107); CREATININE 0.8 MG/DL (0.55-1.30); POTASSIUM 3.8 MMOL/L (3.5-5.1); SODIUM 136 MMOL/L (136-145)
[2017-07-14 15:07] LABS: ALANINE AMINOTRANSFERASE 35 U/L (12-78); ALBUMIN 3.7 G/DL (3.4-5.0); ALBUMIN/GLOBULIN RATIO 0.8 (1.0-2.7); ALKALINE PHOSPHATASE 136 U/L (46-116); ASPARTATE AMINO TRANSFERASE 37 U/L (15-37); BILIRUBIN,TOTAL 0.3 MG/DL (0.2-1.0); CKMB < 0.5 NG/ML (0.0-3.6); CREATINE KINASE 46 U/L (26-308)
[2017-07-14 15:30] VITALS: BP 149/82
--- NOTE | 2017-07-14 15:36 | Diagnostic Imaging Report ---
Indication: Chest pain Comparison: May 18, 2017 A single view chest radiograph was obtained. Findings: Cardiomediastinal appearance is within normal limits for age. There is mild calcification of the aorta. Pulmonary vascularity is appropriate. The diaphragmatic contour is smooth and costophrenic angles are sharp. No pleural effusions are identified. The bones are osteopenic. Impression: No acute findings
[2017-07-14] MEDS ORDERED: VERTICALM25 MG ORAL (15:52)
[2017-07-14 16:45] VITALS: BP 149/82
--- NOTE | 2017-07-19 19:34 | Cardiology Report ---
APPROVED REPORT EKG Measurement Heart [id number] Normal sinus rhythm Moderate voltage criteria for LVH, may be normal variant Borderline ECG
== END 2017-07-14 16:47 | disposition home or self-care (01) ==
LOC: EMR 13:37
DX: R42 Dizziness and giddiness (principal); R07.9 Chest pain, unspecified; I10 Essential (primary) hypertension; E11.9 Type 2 diabetes mellitus without complications; Z86.79 Personal history of other diseases of the circulatory system; Z86.73 Personal history of transient ischemic attack (TIA), and cerebral infarction without residual deficits; Z86.69 Personal history of other diseases of the nervous system and sense organs
CPT/HCPCS: 36415; 71010; 80053; 82550; 82553; 84484; 85025; 93005; 96361; 96374; 99284

== ENCOUNTER 2017-11-23 17:58 | Emergency (ER) | payer BC, OTHER ==
[~2017-11-23] VITALS: Ht 165.1 cm; Wt 90.7 kg
[~2017-11-23 17:58] MED LIST changes: +VERTICALM25 MG ORAL
[2017-11-23 19:30] VITALS: BP 120/70
[2017-11-23 20:02] LABS: BASOPHILS % (AUTO) 0.8 % (0.0-2.0); HEMATOCRIT 37.1 % (37.0-47.0); HEMOGLOBIN 11.8 G/DL (12.0-16.0); LYMPHOCYTES % (AUTO) 28.8 % (20.0-45.0); MEAN CORPUSCULAR VOLUME 77 FL (80-99); MONOCYTES % (AUTO) 7.5 % (1.0-10.0); NEUTROPHILS % (AUTO) 61.9 % (45.0-75.0); PLATELET COUNT 262 K/UL (150-450); RED BLOOD COUNT 4.81 M/UL (4.20-5.40); RED CELL DISTRIBUTION WIDTH 14.5 % (11.6-14.8); WHITE BLOOD COUNT 13.6 K/UL (4.8-10.8)
[2017-11-23 20:07] LABS: APPEARANCE,URINE CLEAR; BILIRUBIN, URINE NEGATIVE (NEGATIVE); COLOR,URINE PALE YELLOW; GLUCOSE, URINE (UA) NEGATIVE (NEGATIVE); KETONES,URINE NEGATIVE (NEGATIVE); LEUKOCYTE ESTERASE ,URINE 1+ (NEGATIVE); NITRITE,URINE POSITIVE (NEGATIVE); PH,URINE 6 (4.5-8.0); PROTEIN,URINE 2+ (NEGATIVE); UROBILINOGEN,URINE NORMAL MG/DL (0.0-1.0)
[2017-11-23 20:15] LABS: ANION GAP 11 mmol/L (5-15); BLOOD UREA NITROGEN 22 mg/dL (7-18); CALCIUM 9.2 MG/DL (8.5-10.1); CARBON DIOXIDE 24 MMOL/L (21-32); CHLORIDE 103 MMOL/L (98-107); CREATININE 0.9 MG/DL (0.55-1.30); POTASSIUM 3.5 MMOL/L (3.5-5.1); SODIUM 138 MMOL/L (136-145)
[2017-11-23 20:28] LABS: ALANINE AMINOTRANSFERASE 34 U/L (12-78); ALBUMIN 3.5 G/DL (3.4-5.0); ALBUMIN/GLOBULIN RATIO 0.8 (1.0-2.7); ALKALINE PHOSPHATASE 145 U/L (46-116); ASPARTATE AMINO TRANSFERASE 26 U/L (15-37); BILIRUBIN,TOTAL 0.2 MG/DL (0.2-1.0)
[2017-11-23 20:30] VITALS: BP 130/72
[2017-11-23] MEDS ORDERED: cefTRIAXone 1 GM in NS 55 ML IVPB ONE (20:45)
[2017-11-23] MEDS ORDERED: CEPHALEXIN500 MG ORAL (21:10)
[2017-11-23 21:55] VITALS: BP 122/74
[2017-11-23 21:58] VITALS: BP 122/74
--- NOTE | 2017-11-23 22:49 | Emergency Room Report ---
History of Present Illness General Chief Complaint: Chest Pain Source: Patient Present Illness HPI Patient is 62-year-old female who presented after increased chest discomfort. Patient gradual onset of symptoms. She reports having increased cramping to her lower extremities. Patient had had not been vomiting or having any diarrhea. She denies any shortness of breath. She denies any productive cough. She denies any new leg pain or swelling.The pain isn't changed by exertion. Allergies: Coded Allergies: No Known Allergies (Unverified , 05/11/16) Patient History Past Medical History: see triage record Reviewed Nursing Documentation: PMH: Agreed; PSxH: Agreed Nursing Documentation-PMH Past Medical History: No History, Except For Hx Cardiac Problems: Yes Hx Hypertension: Yes Hx Diabetes: Yes Hx Cancer: No Hx Gastrointestinal Problems: No Hx Neurological Problems: Yes Hx Cerebrovascular Accident: Yes - 2004 Review of Systems All Other Systems: negative except mentioned in HPI Physical Exam Vital Signs Date Time Temp Pulse Resp B/P (MAP) Pulse Ox O2 Delivery O2 Flow Rate FiO2 11/23/17 18:08 98.3 92 16 162/93 99 Room Air 98.2 Sp02 EP Interpretation: reviewed, normal General Appearance: normal inspection, well appearing, no apparent distress, alert, GCS 15 Head: atraumatic ENT: normal ENT inspection, hearing grossly normal, normal voice Neck: normal inspection, full range of motion, supple, no bony tend Respiratory: normal inspection, lungs clear, normal breath sounds, no respiratory distress, no retraction, no wheezing Cardiovascular #1: regular rate, rhythm, no edema Gastrointestinal: normal inspection, normal bowel sounds, non tender, soft, no guarding, no hernia Genitourinary: no CVA tenderness Musculoskeletal: normal inspection, back normal, normal range of motion Neurologic: normal inspection, alert, oriented x3, responsive, rn lvn III-XII nml as tested, speech normal Psychiatric: normal inspection, judgement/insight normal, mood/affect normal Skin: normal inspection, normal color, no rash Medical Decision Making Diagnostic Impression: Primary Impression: Urinary tract infection ER Course Patient presented for chest pain. Differential diagnosis included but was not limited to acute coronary syndrome, pulmonary embolism, pneumonia, aortic dissection, shingles, pneumothorax, aortic dissection, esophageal rupture, pericarditis. Because of complexity of patient's case laboratory testing and imaging studies were ordered. I EKG interpreted by me showed normal sinus rhythm without acute ST or T wave changes. x-ray one view interpreted by me showed normal heart size without evident infiltrate and no evidence pneumothorax. The urinalysis showed evidence of mild urinary tract infection. the patient was given IV antibiotics and IV fluids. Patient stated she felt better. The patient's chest pain does not appear to be cardiac in nature. The patient is advised to follow up with primary care doctor in 1-2 days. Patient is advised to return if any worsening condition or if any changes in status that are concerning. This report is dictated with [employer] brusher tender software which may occasionally lead to discrepancies related to use of this software. Labs Test 11/23/17 19:10 11/23/17 19:45 White Blood Count 13.6 K/UL (4.8-10.8) Red Blood Count 4.81 M/UL (4.20-5.40) Hemoglobin 11.8 G/DL (12.0-16.0) Hematocrit 37.1 % (37.0-47.0) Mean Corpuscular Volume 77 FL (80-99) Mean Corpuscular Hemoglobin 24.5 PG (27.0-31.0) Mean Corpuscular Hemoglobin Concent 31.8 G/DL (32.0-36.0) Red Cell Distribution Width 14.5 % (11.6-14.8) Platelet Count 262 K/UL (150-450) Mean Platelet Volume 7.9 FL (6.5-10.1) Neutrophils (%) (Auto) 61.9 % (45.0-75.0) Lymphocytes (%) (Auto) 28.8 % (20.0-45.0) Monocytes (%) (Auto) 7.5 % (1.0-10.0) Eosinophils (%) (Auto) 1.0 % (0.0-3.0) Basophils (%) (Auto) 0.8 % (0.0-2.0) Sodium Level 138 MMOL/L (136-145) Potassium Level 3.5 MMOL/L (3.5-5.1) Chloride Level 103 MMOL/L (98-107) Carbon Dioxide Level 24 MMOL/L (21-32) Anion Gap 11 mmol/L (5-15) Blood Urea Nitrogen 22 mg/dL (7-18) Creatinine 0.9 MG/DL (0.55-1.30) Estimat Glomerular Filtration Rate > 60 mL/min (>60) Glucose Level 181 MG/DL (74-106) Calcium Level 9.2 MG/DL (8.5-10.1) Total Bilirubin 0.2 MG/DL (0.2-1.0) Aspartate Amino Transf (AST/SGOT) 26 U/L (15-37) Alanine Aminotransferase (ALT/SGPT) 34 U/L (12-78) Alkaline Phosphatase 145 U/L (46-116) Troponin I 0.000 ng/mL (0.000-0.056) Pro-B-Type Natriuretic Peptide 282 pg/mL (0-125) Total Protein 7.8 G/DL (6.4-8.2) Albumin 3.5 G/DL (3.4-5.0) Globulin 4.3 g/dL Albumin/Globulin Ratio 0.8 (1.0-2.7) Thyroid Stimulating Hormone (TSH) 0.502 uiU/mL (0.358-3.740) Urine Color Pale yellow Urine Appearance Clear Urine pH 6 (4.5-8.0) Urine Specific [place] 1.010 (1.005-1.035) Urine Protein 2+ (NEGATIVE) Urine Glucose (UA) Negative (NEGATIVE) Urine Ketones Negative (NEGATIVE) Urine Occult Blood Negative (NEGATIVE) Urine Nitrite Positive (NEGATIVE) Urine Bilirubin Negative (NEGATIVE) Urine Urobilinogen Normal MG/DL (0.0-1.0) Urine Leukocyte Esterase 1+ (NEGATIVE) Urine RBC 0-2 /HPF (0 - 2) Urine WBC 2-4 /HPF (0 - 2) Urine Squamous Epithelial Cells Few /LPF (NONE/OCC) Urine Bacteria Many /HPF (NONE) Last Vital Signs Date Time Temp Pulse Resp B/P (MAP) Pulse Ox O2 Delivery O2 Flow Rate FiO2 11/23/17 21:58 98.1 74 16 122/74 99 Room Air 98.1 Status: improved Disposition: HOME, SELF-CARE Condition: Stable Scripts Cephalexin* (KEFLEX*) 500 Mg Capsule 500 MG ORAL EVERY 6 HOURS, #28 CAP Prov: Benedict Rodriguez MD 11/23/17 Patient Instructions: Nonspecific Chest Pain, Urinary Tract Infection Benedict Rodriguez MD November 23, 2017 22:49
--- NOTE | 2017-11-24 09:46 | Diagnostic Imaging Report ---
Indication: Headache Technique: Contiguous 5 mm thick transaxial imaging of the head obtained in a Siemens Sensation [address] scanner. Soft tissue and bone windows generated. Automatic Exposure Control was utilized. Total Dose length Product (DLP): 1432.[address] Dose Index Volume (CTDIvol): 70.38 mGy Comparison: none Findings: There is mild prominence of the ventricles, basal cisterns, and cerebral sulci consistent with atrophy. Mild, nonspecific, white matter hypoattenuation is noted throughout the brain consistent with chronic small vessel disease. There is no midline shift, edema, acute hemorrhage, mass effect, or abnormal extra-axial fluid collections. Bones and extra osseous soft tissues are unremarkable. Impression: No acute intracranial bleed, mass effect or edema. Mild atrophy of the brain. Nonspecific white matter hypoattenuation probably due to chronic small vessel disease. [facility] has communicated the preliminary results to the Emergency Department. Their findings are largely concordant with this report. The CT scanner at [facility] is accredited by the [employer] and the scans are performed using dose optimization techniques as appropriate to a performed exam including Automatic Exposure control.
--- NOTE | 2017-11-24 10:46 | Diagnostic Imaging Report ---
Indication: Dyspnea Comparison: 07/14/2017 A single view chest radiograph was obtained. Findings: Cardiomediastinal appearance is within normal limits for age. Pulmonary vascularity is appropriate. The diaphragmatic contour is smooth and costophrenic angles are sharp. No pleural effusions are identified. The bones are unremarkable. Impression: No acute findings
== END 2017-11-23 21:58 | disposition home or self-care (01) ==
LOC: EMR 20:46
DX: N39.0 Urinary tract infection, site not specified (principal); I10 Essential (primary) hypertension; E11.9 Type 2 diabetes mellitus without complications; R07.89 Other chest pain; R51 Headache; Z86.73 Personal history of transient ischemic attack (TIA), and cerebral infarction without residual deficits
CPT/HCPCS: 36415; 70450; 71045; 80053; 81001; 83880; 84443; 84484; 85025; 87086; 87181; 96361; 96374; 99284; J0696